=== PATIENT | female | born 1995 | race Caucasian/White ===

== ENCOUNTER 2017-07-09 14:58 | Emergency (ER) | payer OTHER, MEDICAID, SELFPAY | END 2017-07-09 17:08 | disposition home or self-care (01) | PROVIDERS: Emergency Provider Nurse Practitioner Family; Visit Provider Nurse Practitioner Family | DX: J32.9 Chronic sinusitis, unspecified (principal); B97.89 Other viral agents as the cause of diseases classified elsewhere; F17.210 Nicotine dependence, cigarettes, uncomplicated; R51 Headache; Z88.8 Allergy status to other drugs, medicaments and biological substances | CPT/HCPCS: 96372; 99201 ==

== ENCOUNTER 2017-09-01 15:32 | Emergency (ER) | payer OTHER, MEDICAID, SELFPAY ==
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
[2017-09-01 15:58] VITALS: BP 131/79; PULSE 71; RESP 18; TEMP 36.8; O2SAT 99; BMI 24.9
--- NOTE | 2017-09-01 15:58 | PC.ADMIT ---
[email or web address] Admission Note: The patient,Keyla De La Cruz,22 y/o, was given written information regarding hospital policies, unit procedures and contact persons. Patient's smoking status: .
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
[2017-09-01 16:52] LABS: Microscopic, Urine URINE MICROSCOPIC (MICROSCOPIC)
[2017-09-01 16:57] LABS: Appearance,Urine CLOUDY (Clear); Bilirubin,Urine Negative (Negative); Blood, Urine Negative (Negative); Color,Urine YELLOW (Yellow); Glucose,Urine (UA) Negative (Negative); Ketones,Urine Negative (Negative); Leukocyte Esterase,Urine Negative (Negative); Nitrate,Urine Negative (Negative); Protein,Urine Negative (Negative); Specific Gravity, Urine 1.015 (1.005-1.030); Urobilinogen,Urine 0.2 EU/dl (0.2)
[2017-09-01 16:58] LABS: Urine Pregnancy, HCG Qual. Negative (Negative)
[2017-09-01 17:16] LABS: WBC,Urine Occasional #/hpf (0-3)
[2017-09-01 17:17] LABS: Bacteria,Urine 2+ /lpf
[2017-09-01 17:17] LABS: Basophils # 0.1 K/mm3 (0-0.2); Basophils % 0.9 % (0.1-2.0); Eosinophils # 0.4 K/mm3 (0.0-0.4); Hematocrit 38.4 % (37.0-47.0); Hemoglobin 12.3 g/dL (12.2-16.2); Lymphocytes # 2.2 K/mm3 (0.7-4.5); Lymphocytes % 31.8 K/mm3 (10-50); Mean Corpuscular HGB Conc 32.1 g/dL (31.8-35.4); Mean Corpuscular Hemoglobin 26.1 pg (27.0-31.2); Mean Corpuscular Volume 81.3 fl (81-99); Mean Platelet Volume 8.9 fl (7.4-10.4); Monocytes # 0.4 K/mm3 (0.1-1.0); Neutrophils # 3.8 K/mm3 (1.8-7.8); Neutrophils % 55.2 % (37.0-80.0); Platelet Count 299 K/mm3 (142-424); Red Blood Count 4.72 M/mm3 (4.20-5.40); Red Cell Distribution Width 13.9 % (11.5-17.5); White Blood Count 6.9 K/mm3 (4.8-10.8)
[2017-09-01 17:36] LABS: Alanine Aminotransferase 28 U/L (12-78); Albumin Level 3.7 gm/dL (3.4-5.0); Albumin/Globulin Ratio 0.9 (1.1-1.8); Alkaline Phosphatase 88 U/L (46-116); Anion Gap 9.1 mEq/L (5-15); Aspartate Amino Transferase 16 U/L (15-37); Bilirubin,Total 0.6 mg/dL (0.2-1.0); Blood Urea Nitrogen 10 mg/dL (7-18); Calcium 8.8 mg/dL (8.5-10.1); Carbon Dioxide 27 mmol/L (21.0-32.0); Chloride 105 mmol/L (98-107); Creatinine Clearance Estimated 167 mL/min (0-300); Creatinine,Serum 0.54 mg/dL (0.55-1.02); Estimated Glomerular Filt Rate 139 ml/min (>60); GFR (African American) 168 ML/MIN (>60); Globulin 3.9 gm/dl (1.3-3.2); Glucose 82 mg/dL (74-106); Potassium 4.1 mmoL/L (3.5-5.1); Sodium 137 mmol/L (136-145); Total Protein,Serum 7.6 gm/dL (6.4-8.2)
[2017-09-01 18:51] VITALS: BP 120/83; PULSE 83; RESP 18; TEMP 36.9; O2SAT 98
== END 2017-09-01 18:51 | disposition home or self-care (01) ==
PROVIDERS: Emergency Provider General Practice
DX: S00.03XA Contusion of scalp, initial encounter (principal); Y04.0XXA Assault by unarmed brawl or fight, initial encounter; Y92.89 Other specified places as the place of occurrence of the external cause; S70.02XA Contusion of left hip, initial encounter; S30.1XXA Contusion of abdominal wall, initial encounter; F17.210 Nicotine dependence, cigarettes, uncomplicated
CPT/HCPCS: 70450; 72100; 73502; 80053; 81001; 81025; 85025; 87086; 99282

== ENCOUNTER 2017-09-27 00:21 | Emergency (ER) | payer OTHER, SELFPAY ==
[2017-09-27 00:52] VITALS: BP 129/69; PULSE 64; RESP 20; TEMP 37.4; O2SAT 98; BMI 24.7
[2017-09-27 01:03] LABS: Microscopic, Urine URINE MICROSCOPIC (MICROSCOPIC)
[2017-09-27 01:07] LABS: Urine Pregnancy, HCG Qual. Positive (Negative)
[2017-09-27 01:08] LABS: Appearance,Urine CLOUDY (Clear); Bilirubin,Urine Negative (Negative); Blood, Urine TRACE-I (Negative); Color,Urine YELLOW (Yellow); Glucose,Urine (UA) Negative (Negative); Ketones,Urine Negative (Negative); Leukocyte Esterase,Urine Negative (Negative); Nitrate,Urine Negative (Negative); Protein,Urine Negative (Negative); Urobilinogen,Urine 0.2 EU/dl (0.2)
[2017-09-27 01:11] LABS: Amorphous Sediment,Urine 4+ /lpf
[2017-09-27 01:40] LABS: Basophils # 0.1 K/mm3 (0-0.2); Basophils % 0.8 % (0.1-2.0); Eosinophils # 0.5 K/mm3 (0.0-0.4); Eosinophils % 4.9 % (0.1-12.0); Hematocrit 38.3 % (37.0-47.0); Hemoglobin 12.1 g/dL (12.2-16.2); Lymphocytes # 2.9 K/mm3 (0.7-4.5); Lymphocytes % 30.1 K/mm3 (10-50); Mean Corpuscular HGB Conc 31.5 g/dL (31.8-35.4); Mean Corpuscular Hemoglobin 26.5 pg (27.0-31.2); Mean Corpuscular Volume 83.9 fl (81-99); Mean Platelet Volume 8.1 fl (7.4-10.4); Monocytes # 0.5 K/mm3 (0.1-1.0); Monocytes % 4.8 % (1.7-9.3); Neutrophils # 5.8 K/mm3 (1.8-7.8); Neutrophils % 59.4 % (37.0-80.0); Platelet Count 304 K/mm3 (142-424); Red Blood Count 4.57 M/mm3 (4.20-5.40); Red Cell Distribution Width 15.3 % (11.5-17.5); White Blood Count 9.8 K/mm3 (4.8-10.8)
--- NOTE | 2017-09-27 01:54 | HMH.EDGENADL ---
ED Disposition Clinical Impression: Blighted ovum Disposition: Home, Self-Care Condition on Discharge: Good Additional Instructions: Call Dr. Chang Friday to arrange follow-up to be seen this week for recheck. Return if severe bleeding or severe pain. Referrals: Asiya Reyes MD [Primary Care Provider] - - Critical Care Critical Care Time: No Attestation: On 09/27/17, the high probability of a clinically significant, sudden or life threatening deterioration of the following system(s) required my full and direct attention, intervention and personal management. The time I documented below is in addition to time spent performing reported procedures but includes the following listed in this critical care notation. Medical Decision Making - Issac Inquiry Pt receiving controlled substance: No Vital Signs: 09/27/17 00:52 Temperature 99.3 F Temperature Source Oral Pulse Rate [Right Radial] 64 Respiratory Rate 20 Blood Pressure [Right Arm] 129/69 Blood Pressure Mean [Right Arm] 89 Blood Pressure Position [Right Arm] Sitting 02 Sat by Pulse Oximetry 98 - Lab Data Lab Results 09/27/17 01:00: Urine Color Yellow, Urine Appearance Cloudy, Urine pH 7.0, Ur Specific [place] 1.020, Urine Protein Negative, Urine Glucose (UA) Negative, Urine Ketones Negative, Urine Blood Trace-i, Urine Nitrate Negative, Urine Bilirubin Negative, Urine Urobilinogen 0.2, Ur Leukocyte Esterase Negative, Urine RBC 3-5, Amorphous Sediment 4+ 09/27/17 01:00: Urine HCG, Qual Positive 09/27/17 01:10: WBC 9.8, RBC 4.57, Hgb 12.1 L, Hct 38.3, MCV 83.9, MCH 26.5 L, MCHC 31.5 L, RDW 15.3, Plt Count 304, MPV 8.1, Neut % (Auto) 59.4, Lymph % (Auto) 30.1, [place] % (Auto) 4.8, Eos % (Auto) 4.9, Baso % (Auto) 0.8, Neut # (Auto) 5.8, Lymph # (Auto) 2.9, [place] # (Auto) 0.5, Eos # (Auto) 0.5 H, Baso # (Auto) 0.1 09/27/17 01:10: Sodium 141, Potassium 3.4 L, Chloride 105, Carbon Dioxide 27, Anion Gap 12.4, BUN 11, Creatinine 0.70, Estimated Creat Clear 124, Estimated GFR 103, Est GFR ( Amer) 124, Glucose 77, Calcium 8.8, Total Bilirubin 0.3, AST 19, ALT 25, Alkaline Phosphatase 78, Total Protein 7.5, Albumin 3.7, Globulin 3.8 H, Albumin/Globulin Ratio 1.0 L, HCG, Quant [id number] H 09/27/17 01:10: Blood Type AB Positive Result diagrams: 09/27/17 01:10 09/27/17 01:10 Orders (Tests/Meds): ORDERS Category Date Time Status US OB transvaginal Stat Ultrasound 09/27/17 02:02 Taken - US Data US Images: Pelvis Findings Narrative: As per [facility] procedure, ultrasound report received from office machine technician: Gestational sac seen, no pole. Presumed blighted ovum. General Adult HPI - General Chief complaint: Vaginal Bleeding Stated complaint: 6 wks bleeding Time Seen by Provider: 09/27/17 01:58 Mode of Arrival: Ambulatory Limitations: No Limitations Description of Symptoms (Recalled from ER Triage Doc. by RN): 6 weeks , started having vaginal bleeding tonight. pt states she had some bleeding when wiping after voiding. lower abd cramping that radiates into her back. denies clots - History of Present Illness HPI narrative: The patient states she is approximately 6 weeks gestation , 3, para 2, and has vaginal bleeding starting today. She says she sees blood whenever she wipes, about like the beginning of menses. She has some suprapubic and low back pain. She has not passed any tissue. She has seen her precision inspector, Dr. Chang, about this . She says they could not see anything on the monitor . - Related Data Home Medications Medication Instructions Recorded Confirmed valacyclovir 1 gram tablet 500 mg PO QDAY 07/10/17 09/27/17 1 tab PO QHS 09/18/17 09/27/17 vitamin,calcium,abuzgykc-ztdr-tabei acid tablet Allergies Allergy/AdvReac Type Severity Reaction Status Date / Time hydrocodone [From LORTAB] Allergy Intermediate Verified 09/18/17 13:27 metoclopramide [From REGLAN] A
--- NOTE | 2017-09-27 02:02 | US_ITS ---
US OB transvaginal COMPARISON: None HISTORY: Known early with vaginal bleeding TECHNIQUE: Transvaginal ultrasound FINDINGS: There is apparent gestational sac noted within the endometrial canal measuring 0.8 x 0.7 x 0.6 cm. There are no echoes and is no heart flicker identified both ovaries appear grossly normal. There is no cul-de-sac fluid. IMPRESSION: Possible very early gestational sac too early to assess viability versus blighted ovum and suggest clinical correlation and follow-up study in 7-10 days depending on subsequent clinical stability or progression of symptoms
[2017-09-27 02:16] LABS: Alanine Aminotransferase 25 U/L (12-78); Albumin Level 3.7 gm/dL (3.4-5.0); Alkaline Phosphatase 78 U/L (46-116); Anion Gap 12.4 mEq/L (5-15); Aspartate Amino Transferase 19 U/L (15-37); Bilirubin,Total 0.3 mg/dL (0.2-1.0); Blood Urea Nitrogen 11 mg/dL (7-18); Calcium 8.8 mg/dL (8.5-10.1); Carbon Dioxide 27 mmol/L (21.0-32.0); Chloride 105 mmol/L (98-107); Creatinine Clearance Estimated 124 mL/min (0-300); Estimated Glomerular Filt Rate 103 ml/min (>60); GFR (African American) 124 ML/MIN (>60); Globulin 3.8 gm/dl (1.3-3.2); Glucose 77 mg/dL (74-106); HCG,Quantitative 11494 mIU/mL; Potassium 3.4 mmoL/L (3.5-5.1); Sodium 141 mmol/L (136-145); Total Protein,Serum 7.5 gm/dL (6.4-8.2)
[2017-09-27 03:30] VITALS: BP 121/70; PULSE 85; RESP 20; TEMP 36.6; O2SAT 99
== END 2017-09-27 03:31 | disposition home or self-care (01) ==
PROVIDERS: Emergency Provider Emergency Medicine; PCP Family Medicine
DX: O02.0 Blighted ovum and nonhydatidiform mole (principal); F41.8 Other specified anxiety disorders
CPT/HCPCS: 76830; 80053; 81001; 81025; 84702; 85025; 86900; 86901; 99283

== ENCOUNTER → 2017-10-02 16:36 | Outpatient (CLI) | payer OTHER, MEDICAID, SELFPAY ==
[2017-10-02 16:47] LABS: Basophils # 0.1 K/mm3 (0-0.2); Basophils % 0.5 % (0.1-2.0); Eosinophils # 0.5 K/mm3 (0.0-0.4); Eosinophils % 4.7 % (0.1-12.0); Hematocrit 39.5 % (37.0-47.0); Hemoglobin 12.5 g/dL (12.2-16.2); Lymphocytes # 2.8 K/mm3 (0.7-4.5); Lymphocytes % 24.3 K/mm3 (10-50); Mean Corpuscular HGB Conc 31.6 g/dL (31.8-35.4); Mean Corpuscular Hemoglobin 26.2 pg (27.0-31.2); Mean Corpuscular Volume 82.8 fl (81-99); Mean Platelet Volume 8.7 fl (7.4-10.4); Monocytes # 0.7 K/mm3 (0.1-1.0); Monocytes % 5.9 % (1.7-9.3); Neutrophils # 7.3 K/mm3 (1.8-7.8); Neutrophils % 64.5 % (37.0-80.0); Platelet Count 288 K/mm3 (142-424); Red Blood Count 4.77 M/mm3 (4.20-5.40); Red Cell Distribution Width 15.5 % (11.5-17.5); White Blood Count 11.3 K/mm3 (4.8-10.8)
[2017-10-02 18:34] LABS: Alanine Aminotransferase 34 U/L (12-78); Albumin Level 3.9 gm/dL (3.4-5.0); Albumin/Globulin Ratio 1.1 (1.1-1.8); Alkaline Phosphatase 74 U/L (46-116); Anion Gap 13.2 mEq/L (5-15); Aspartate Amino Transferase 17 U/L (15-37); Bilirubin,Total 0.3 mg/dL (0.2-1.0); Blood Urea Nitrogen 9 mg/dL (7-18); Calcium 8.9 mg/dL (8.5-10.1); Carbon Dioxide 27 mmol/L (21.0-32.0); Chloride 103 mmol/L (98-107); Creatinine,Serum 0.53 mg/dL (0.55-1.02); Estimated Glomerular Filt Rate 142 ml/min (>60); GFR (African American) 171 ML/MIN (>60); Globulin 3.6 gm/dl (1.3-3.2); Glucose 76 mg/dL (74-106); Potassium 4.2 mmoL/L (3.5-5.1); Sodium 139 mmol/L (136-145); Total Protein,Serum 7.5 gm/dL (6.4-8.2)
== END ==
PROVIDERS: Visit Provider Obstetrics & Gynecology
DX: Z01.818 Encounter for other preprocedural examination (principal); O03.9 Complete or unspecified spontaneous abortion without complication
CPT/HCPCS: 36415; 80053; 85025

== ENCOUNTER 2017-10-03 09:13 | Day surgery (SDC) | payer OTHER, MEDICAID, SELFPAY ==
[2017-10-03] VITALS (10 sets, daily range): BP systolic 95–116; BP diastolic 52–76; PULSE 63–79; RESP 16–20; TEMP 36.3–37.1; O2SAT 99–100; BMI 25.8
--- NOTE | 2017-10-03 09:50 | HMH.ANESCL ---
[facility] Anesthesia Checklist - Patient Identification Patient Identification: Arm Band - Structural Data Admitted From: Home Consent for Planned Operative Procedure(s) Verified: Yes Verified Documents: Surgical Consent, History and Physical - NPO Status Verified Time NPO: 00:00 - Additional verifications Anesthesia Reactions: No - Airway Assessment C-Spine Mobility Assessed: Yes TMJ Mobility Assessed: Yes Dentition: Good Dentition - Neurological Assessment Level of Consciousness: Awake Hx Seizures: No Numbness or tingling in extremities: No - Anesthesia Plan Anesthesia Risk discussed: Yes Anesthesia Plan: Verified ASA Class: II Anesthesia Type: General [facility] Anesthesia HX I have reviewed the patient's past medical history: Yes Medical History: Reports:: Anxiety, Asthma, Depression Denies:: Cancer, Diabetes Mellitus Type 1, Diabetes Mellitus Type 2, MRSA, Seizures Other Medical History: Reports: Other. Denies: Blood Transfusion Reaction Comment: Positive for smoking, HSV Laterality Cases: Bilateral: Tonsillectomy Other Surgeries: Yes: , Diagnostic Lap Amputation: No Fractures: No *Family Hx:: Coronary Artery Disease, Heart Attack, Hyperlipidemia, Hypertension
--- NOTE | 2017-10-03 09:53 | P.PN_ITS ---
[facility] Anesthesia Checklist - Patient Identification Patient Identification: Arm Band - Structural Data Admitted From: Home Consent for Planned Operative Procedure(s) Verified: Yes Verified Documents: Surgical Consent, History and Physical - NPO Status Verified Time NPO: 00:00 - Additional verifications Anesthesia Reactions: No - Airway Assessment C-Spine Mobility Assessed: Yes TMJ Mobility Assessed: Yes Dentition: Good Dentition - Neurological Assessment Level of Consciousness: Awake Hx Seizures: No Numbness or tingling in extremities: No - Anesthesia Plan Anesthesia Risk discussed: Yes Anesthesia Plan: Verified ASA Class: II Anesthesia Type: General [facility] Anesthesia HX I have reviewed the patient's past medical history: Yes Medical History: Reports:: Anxiety, Asthma, Depression Denies:: Cancer, Diabetes Mellitus Type 1, Diabetes Mellitus Type 2, MRSA, Seizures Other Medical History: Reports: Other. Denies: Blood Transfusion Reaction Comment: Positive for smoking, HSV Laterality Cases: Bilateral: Tonsillectomy Other Surgeries: Yes: , Diagnostic Lap Amputation: No Fractures: No *Family Hx:: Coronary Artery Disease, Heart Attack, Hyperlipidemia, Hypertension
--- NOTE | 2017-10-03 10:47 | HMH.OPNOTE ---
Date of procedure: 10/03/17 Pre-op Diagnosis:: Missed spontaneous Post-op Diagnosis:: Missed spontaneous Procedure performed:: Dilatation and suction curettage Surgeon:: Aditya Chang MD NUMERICAL CONTROL OPERATOR:: Manjit Segovia Anesthesia: GETA Estimated blood loss (mL): 100 Operative findings:: Missed spontaneous Operative note:: After the patient was prepped and draped in usual fashion and general anesthesia was admitted, examination under anesthesia revealed an 8 week size boggy anteverted uterus, with no adnexal masses. A weighted speculum was placed within the posterior fourchette of the vagina, and the anterior lip of the cervix was grasped with a single-tooth tenaculum. The cervix was open approximately 2 cm, and easily admitted a #14 Hegar dilator. The uterus was sounded in an anteverted direction to 9 cm, and easily dilated to #20 Hegar dilators. A sharp curette was introduced into the endometrial cavity, with the retrieval of moderate amount of products of conception. This was then followed by suction with a #7 curved suction tip, and again by sharp curettage and suction, until it was felt that the cavity was clean. Intravenous Pitocin was then begun, and the uterus was involuting well at the close of the procedure. The sponge and needle counts correct. The estimated blood loss was 100 cc. The patient's Rh factor is positive, and therefore she is not a candidate for RhoGam. The patient tolerated the procedure well, was taken to PACU in excellent condition. She will be discharged today, if her vital signs are stable. Condition: stable Disposition: same day Specimens:: Products of conception Complications:: None
--- NOTE | 2017-10-03 10:57 | HMH.ANESI ---
[facility] Anesthesia Record Part I Intake, IV Amount: 400 Estimated blood loss (mL): 10 Urine output (mL): 150 Blood Products used (#): none Blood Pressure: 98/59 SaO2: 100 Pulse Rate: 79 Respiratory Rate: 18 Temperature: 97.3 F Patient is:: Drowsy, Stable Stable to PACU at:: 10:56
--- NOTE | 2017-10-03 10:58 | P.PN_ITS ---
[facility] Anesthesia Record Part II Discharge Time: 11:26 Destination: Surgical Day Care (OP Surgery) PACU nurse assessment reviewed?: Yes Patient Condition:: Good Anesthesia Complications:: None
[2017-10-03 12:02] LABS: Hematocrit 37.1 % (37.0-47.0); Hemoglobin 11.7 g/dL (12.2-16.2)
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
== END 2017-10-03 12:15 | disposition home or self-care (01) ==
PROVIDERS: PCP Family Medicine; Visit Provider Obstetrics & Gynecology
PROC: (CPT 59820; principal; 2017-10-03 12:30)
DX: O02.1 Missed abortion (principal)
CPT/HCPCS: 59820; 36415; 85014; 85018; 96372; 96374

== ENCOUNTER → 2017-12-09 08:08 | Outpatient (CLI) | payer OTHER, MEDICAID, SELFPAY ==
--- NOTE | 2017-12-09 08:10 | US_ITS ---
US abdomen limited History:Right upper quadrant pain with nausea vomiting and diarrhea Ordering Physician:Kelin Sweet Patient Age: 22 years Comparison:None Findings: Pancreas:Unremarkable. No obvious mass or abnormal fluid collection. No ductal dilatation Liver:No focal liver lesions demonstrated. Homogeneous echogenicity. No intrahepatic biliary ductal dilatation evident Right Kidney:Unremarkable. Normal size and echogenicity. No hydronephrosis Gallbladder:No gallstones, gallbladder wall thickening, pericholecystic fluid, or biliary dilatation. Impression:Negative gallbladder/right upper quadrant ultrasound
== END ==
PROVIDERS: PCP Family Medicine; Visit Provider Nurse Practitioner
DX: R10.11 Right upper quadrant pain (principal)
CPT/HCPCS: 76705

== ENCOUNTER → 2018-05-05 15:12 | Outpatient (CLI) | payer OTHER, MEDICAID, SELFPAY ==
[2018-05-08 06:42] LABS: HIV Screen 4th Generation wRfx Non Reactive (Non Reactive); Hepatitis C Antibody 0.1 s/co ratio (0.0-0.9); Rapid Plasma Reagin Ab Titer Non Reactive (NonRea<1:1)
== END ==
PROVIDERS: PCP Family Medicine; Visit Provider Obstetrics & Gynecology
DX: Z11.3 Encounter for screening for infections with a predominantly sexual mode of transmission (principal)
CPT/HCPCS: 36415; 86592; 86703; 87380; G0432

== ENCOUNTER 2018-07-16 15:30 | Outpatient (RCR) | payer BC, OTHER, MEDICAID, SELFPAY ==
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
--- NOTE | 2018-07-01 10:27 | HMH.RHREAS ---
Rehab Reassessment Rehab OP Re-assessment Start: 07/01/18 10:20 Freq: Status: Active Protocol: Document 07/01/18 10:23 BRANT (Rec: 07/01/18 10:27 BRANT [id number]) Electronically Signed By Tom Woodall, PT 07/01/18 10:23 Rehab Re-assessment Subjective Subjective Pt reports she continues to have intermittent sharp pain on dorsal foot just proximal to 2nd and 3rd toe. Objective Objective Notes AROM right ankle: DF= 0-5, PF= 0-41, INV= 0-21, EVER= 0-7 MMT right ankle: Grossly 3/5 throughout except DF 4/5. Assessment Progress Assessment Progressing as Expected Assessment Notes Pt is tolerating ambulation better, but continues to limp when not using crutches. ROM and strength much improved. Patient goals met ST,2,3,4,5,6,7 Goals Not Met LT,2,3,4,5,6,7 Revised Goals none Plan Plan Continue per initial POC. Frequency of Therapy 2x/wk Duration of therapy 8 wks Time and Billing Re-Eval Time 15 Re-Eval Billing Units 1 PHYSICIAN CERTIFICATION: I certify the specified therapy services for Keyla De La Cruz are required, authorized, and reviewed every 30 days.
== END 2018-07-16 15:35 | disposition home or self-care (01) ==
LOC: PT 15:30
PROVIDERS: Visit Provider Nurse Practitioner
DX: S92.901G Unspecified fracture of right foot, subsequent encounter for fracture with delayed healing (principal)
CPT/HCPCS: 97010; 97014; 97016; 97035; 97110; 97116; 97140; 97163; 97164; G0283

== ENCOUNTER → 2018-08-25 15:22 | Outpatient (CLI) | payer BC, SELFPAY ==
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
== END ==
PROVIDERS: PCP Family Medicine; Visit Provider Obstetrics & Gynecology
DX: R10.2 Pelvic and perineal pain (principal)
CPT/HCPCS: 76830

== ENCOUNTER → 2018-09-01 10:08 | Outpatient (CLI) | payer BC, SELFPAY ==
[2018-09-01 10:10] LABS: Microscopic, Urine URINE MICROSCOPIC (MICROSCOPIC)
[2018-09-01 10:56] LABS: Basophils # 0.1 K/mm3 (0-0.2); Basophils % 0.8 % (0.1-2.0); Eosinophils # 0.4 K/mm3 (0.0-0.4); Eosinophils % 5.5 % (0.1-12.0); Hematocrit 43.8 % (37.0-47.0); Hemoglobin 13.9 g/dL (12.2-16.2); Lymphocytes # 2.1 K/mm3 (0.7-4.5); Mean Corpuscular HGB Conc 31.8 g/dL (31.8-35.4); Mean Platelet Volume 8.5 fl (7.4-10.4); Monocytes # 0.3 K/mm3 (0.1-1.0); Monocytes % 4.6 % (1.7-9.3); Neutrophils # 3.6 K/mm3 (1.8-7.8); Platelet Count 271 K/mm3 (142-424); Red Blood Count 4.81 M/mm3 (4.20-5.40); Red Cell Distribution Width 13.5 % (11.5-17.5); White Blood Count 6.4 K/mm3 (4.8-10.8)
[2018-09-01 11:33] LABS: Appearance,Urine CLEAR (Clear); Bilirubin,Urine Negative (Negative); Blood, Urine Negative (Negative); Color,Urine YELLOW (Yellow); Glucose,Urine (UA) Negative (Negative); Ketones,Urine Negative (Negative); Leukocyte Esterase,Urine Negative (Negative); Nitrate,Urine Negative (Negative); PH,Urine 7.5 (5.0-8.5); Protein,Urine Negative (Negative); Specific Gravity, Urine 1.015 (1.005-1.030); Urobilinogen,Urine 0.2 EU/dl (0.2)
[2018-09-01 11:36] LABS: Urine Pregnancy, HCG Qual. Negative (Negative)
[2018-09-01 11:49] LABS: Alanine Aminotransferase 20 U/L (12-78); Albumin Level 3.9 gm/dL (3.4-5.0); Albumin/Globulin Ratio 1.1 (1.1-1.8); Alkaline Phosphatase 85 U/L (46-116); Anion Gap 11.8 mEq/L (5-15); Aspartate Amino Transferase 14 U/L (15-37); Bilirubin,Total 0.8 mg/dL (0.2-1.0); Blood Urea Nitrogen 12 mg/dL (7-18); Carbon Dioxide 28 mmol/L (21.0-32.0); Chloride 103 mmol/L (98-107); Creatinine,Serum 0.61 mg/dL (0.55-1.02); Estimated Glomerular Filt Rate 120 ml/min (>60); GFR (African American) 145 ML/MIN (>60); Globulin 3.4 gm/dl (1.3-3.2); Glucose 79 mg/dL (74-106); Potassium 4.8 mmoL/L (3.5-5.1); Sodium 138 mmol/L (136-145); Total Protein,Serum 7.3 gm/dL (6.4-8.2); WBC,Urine Occasional #/hpf (0-3)
== END ==
PROVIDERS: Visit Provider Obstetrics & Gynecology
DX: Z01.818 Encounter for other preprocedural examination (principal); R10.2 Pelvic and perineal pain
CPT/HCPCS: 36415; 80053; 81001; 81025; 85025

== ENCOUNTER → 2019-05-14 15:08 | Outpatient (CLI) | payer BC, MEDICAID, SELFPAY ==
--- NOTE | 2019-05-14 15:17 | XR_ITS ---
PROCEDURE: XR ANKLE WT BEARING RT MIN 3V CLINICAL INDICATION: pain Ankle pain COMPARISON: [id number] XR foot RT min 3V from 04/05/[address] foot RT wo con from 04/05/2018 ANKCMRT XR ankle RT min 3V from 04/05/2018 XR FOOT WT BEARING RT 3V from 05/14/2019 XR CALCANEUS RT MIN 2V from 05/14/2019 FINDINGS: No acute fracture or dislocation. The ankle joint is well preserved. There is some cortical regularity involving the medial aspect of the talocalcaneal junction possibly from previous surgery. There is some minimal hypertrophic changes of the posterior distal talus. The calcaneus has an unremarkable appearance. The subtalar joint is unremarkable. There is normal alignment of the foot. No acute finding evident. 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 It appears that there been an osteotomy of the posterior talar process with some bony hypertrophy at this area. There is good alignment of the talonavicular joint. IMPRESSION: The postsurgical changes with degenerative change, no acute finding Dictated by: Tyrone Stock MD 05/14/2019 16:21 Electronically signed by Tyrone Stock MD in [place] 05/14/2019 16:21
== END ==
PROVIDERS: PCP Family Medicine; Visit Provider Podiatrist
DX: S82.891A Other fracture of right lower leg, initial encounter for closed fracture (principal); S92.101A Unspecified fracture of right talus, initial encounter for closed fracture; S92.251A Displaced fracture of navicular [scaphoid] of right foot, initial encounter for closed fracture
CPT/HCPCS: 73610; 73630; 73650

== ENCOUNTER → 2019-05-31 09:31 | Outpatient (CLI) | payer BC, MEDICAID, SELFPAY ==
[2019-06-01 15:00] LABS: HIV Screen 4th Generation wRfx Non Reactive (Non Reactive); Rapid Plasma Reagin Ab Titer Non Reactive (NonRea<1:1)
[2019-06-02 10:22] LABS: Hepatitis C Antibody 0.1 s/co ratio (0.0-0.9)
== END ==
PROVIDERS: Visit Provider Obstetrics & Gynecology
DX: Z11.3 Encounter for screening for infections with a predominantly sexual mode of transmission (principal)
CPT/HCPCS: 36415; 86592; 86703; 87380; G0432

== ENCOUNTER 2019-10-29 10:47 | Emergency (ER) | payer MEDICAID, SELFPAY ==
[2019-10-29 11:12] VITALS: BP 124/71; PULSE 69; RESP 18; TEMP 36.8; O2SAT 100; BMI 26.7
--- NOTE | 2019-10-29 11:12 | HMH.EDUTC ---
[facility] Disposition Clinical Impression: Bronchitis Asthma exacerbation Qualifiers: Asthma severity: unspecified severity Asthma persistence: unspecified Qualified Code(s): J45.901 - Unspecified asthma with (acute) exacerbation Disposition: Home, Self-Care Condition on Discharge: Good Instructions: Preventing the Spread of Coronavirus Discharge Instructions Additional Instructions: Drink plenty of fluids. Take tylenol or ibuprofen for pain or fever. Take the medications as directed. Follow up with your regular doctor. GO TO THE ER FOR ANY WORSENING SYMPTOMS Prescriptions: Brompheniramine/Pseudoephed/Dm [Bromfed Dm Cough Syrup] 5 ml PO Q6HP PRN #240 syrup PRN Reason: Cough Transmission Status: Received by [facility] Azithromycin [Z-Randy 250mg Tab*] 250 mg PO UD DOSE PK #6 tab Transmission Status: Received by [facility] Referrals: Provider,Referral, [Primary Care Provider] - Forms: Work/School Release Time of Disposition: 12:29 Medical Decision Making - Medical Records Medical records reviewed: No: I reviewed the patient's medical records. - Issac Inquiry Pt receiving controlled substance: No Vital Signs: 10/29/19 11:12 10/29/19 12:36 Temperature 98.2 F 98.2 F Temperature Source Oral Oral Pulse Rate 69 Pulse Rate [Right Brachial] 69 Respiratory Rate 18 18 Blood Pressure 124/71 Blood Pressure [Right Arm] 124/71 Blood Pressure Mean [Right Arm] 88 Blood Pressure Source Automatic Cuff Blood Pressure Source [Right Arm] Automatic Cuff Blood Pressure Position Sitting Blood Pressure Position [Right Arm] Sitting 02 Sat by Pulse Oximetry 100 Oxygen Delivery Method Room Air Room Air - Lab Data Lab Results 10/29/19 11:21: Influenza Type A Ag Negative, Influenza Type B Ag Negative 10/29/19 11:21: Strep Scn Rapid Clinic Negative Orders (Tests/Meds): ORDERS Category Date Time Status SARS-CoV-2, DEMETRICE Stat Lab 10/29/19 12:35 Received Strep Screen Confirmation Stat Micro 10/29/19 11:21 Received [facility] HPI - General Stated complaint: nausea x 3 days; headache; dizzy Time Seen by Provider: 10/29/19 11:12 - History of Present Illness Provider Complaint: She c/o 3 days of head ache, cough and fever. She also has had some shortness of breath. She has a history of asthma. 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 - Related Data Previous Rx's Medication Instructions Recorded Albuterol Sulfate [Albuterol HFA 1 - 2 puffs IH Q4-6H PRN #1 inh 06/21/19 Inhaler] Azithromycin [Z-Randy 250mg Tab*] 250 mg PO UD DOSE PK #6 tab 10/29/19 Brompheniramine/Pseudoephed/Dm 5 ml PO Q6HP PRN #240 syrup 10/29/19 [Bromfed Dm Cough Syrup] Allergies Allergy/AdvReac Type Severity Reaction Status Date / Time metoclopramide [From REGLAN] Allergy Mild Verified 06/17/19 11:16 montelukast [From SINGULAIR] Allergy Mild Verified 06/17/19 11:16 [facility] History - Hepatitis A Screen Attestation statement:: This patient has been screened for Hepatitis A risk factors. I have reviewed the patient's past medical history: Yes Medical History: Reports:: Anxiety, Asthma, Depression Denies:: Cancer, Diabetes Mellitus Type 1, Diabetes Mellitus Type 2, Internal Pacemaker, MRSA, Seizures Other Medical History: Reports: Other. Denies: Blood Transfusion Reaction Comment: Smoker. HSV. ANXIETY. ASTHMA. ENDOMETRIOSIS Laterality Cases: Right: Other, Bilateral: Tonsillectomy Other Surgeries: Yes: Cholecystectomy, , Diagnostic Lap (x5), Other. No: Pacemaker Amputation: No Fractures: No Comment: Breast augmentation. laporoscopy x 5 - Social History Smoking Status: Current every day smoker Tobacco Type: cigarettes # Packs/Day (cigarettes): 1 #Yrs smoked (if former smoker): 5 Alcohol Intake: never Alcohol Intake Frequency:: holidays/special occasions only Subst
--- NOTE | 2019-10-29 11:28 | XR_ITS ---
PROCEDURE: XR CHEST 2V CLINICAL HISTORY: cough, short of breath COMPARISON: CXR2V XR chest 2V from 12/27/2017 TRANVAG US transvaginal from 08/25/2018 CT ABDOMEN PELVIS WO CON from 03/09/2019 FINDINGS: The cardiomediastinal silhouette and pulmonary vascularity are within normal limits. The lungs are clear without infiltrates, suspicious nodules, or pleural effusions. No acute bony abnormalities. IMPRESSION: No acute findings. Dictated by: Tyrone Stock MD 10/29/2019 14:36 Electronically signed by Tyrone Stock MD in [place] 10/29/2019 14:36
[2019-10-29 11:30] LABS: UTC Strep Screen (Rapid) Negative (Negative)
[2019-10-29 11:31] LABS: UTC Influenza A Antigen Negative (Negative); UTC Influenza B Antigen Negative (Negative)
[2019-10-29 12:36] VITALS: BP 124/71; PULSE 69; RESP 18; TEMP 36.8; O2SAT 100
[2019-10-30 08:23] LABS: Covid-19 Nasal PCR Sendout Lex NOT DETECTED
--- NOTE | 2019-10-30 11:06 | PC.NURSE ---
1105 PT NOTIFIED OF NEGATIVE COVID-19 TEST RESULT, NO PCP TO NOTIFY
== END 2019-10-29 12:40 | disposition home or self-care (01) ==
PROVIDERS: Emergency Provider Nurse Practitioner Family
DX: J20.9 Acute bronchitis, unspecified (principal); J45.901 Unspecified asthma with (acute) exacerbation; F41.8 Other specified anxiety disorders; Z90.49 Acquired absence of other specified parts of digestive tract; F17.210 Nicotine dependence, cigarettes, uncomplicated
CPT/HCPCS: 71046; 87804; 87880; 99202; U0003

== ENCOUNTER → 2019-11-16 16:08 | Outpatient (CLI) | payer MEDICAID, SELFPAY ==
[2019-11-18 07:31] LABS: Hep A Ab, IgM Negative (Negative); Hepatitis B Core Antibody IgM Negative (Negative); Hepatitis B Surface Antigen Negative (Negative)
[2019-11-18 12:56] LABS: HIV Screen 4th Generation wRfx Non Reactive (Non Reactive); Hepatitis C Antibody 0.2 s/co ratio (0.0-0.9); Rapid Plasma Reagin Ab Titer Non Reactive (NonRea<1:1)
[2019-11-18 12:57] LABS: HSV 2 IgG, Type Spec 9.39 index (0.00-0.90)
[2019-11-19 11:20] LABS: Neisseria gonorrhoeae, NAA Negative (Negative)
== END ==
PROVIDERS: Visit Provider Nurse Practitioner Obstetrics & Gynecology
DX: Z72.51 High risk heterosexual behavior (principal)
CPT/HCPCS: 36415; 80074; 86592; 86695; 86703; 86790; 87491; 87591; G0432

== ENCOUNTER → 2020-03-17 15:57 | Outpatient (CLI) | payer MEDICAID, SELFPAY ==
[2020-03-19 09:20] LABS: Covid-19 Nasal PCR Sendout UK Not Detected
== END ==
PROVIDERS: Visit Provider Nurse Practitioner
DX: Z03.818 Encounter for observation for suspected exposure to other biological agents ruled out (principal)
CPT/HCPCS: U0003

== ENCOUNTER → 2020-05-15 16:48 | Outpatient (CLI) | payer OTHER, MEDICAID, SELFPAY ==
[2020-05-18 11:46] LABS: Neisseria gonorrhoeae, NAA Negative (Negative)
== END ==
PROVIDERS: Visit Provider Nurse Practitioner Obstetrics & Gynecology
DX: Z72.51 High risk heterosexual behavior (principal)
CPT/HCPCS: 87491; 87591

== ENCOUNTER → 2020-08-03 14:37 | Outpatient (CLI) | payer OTHER, SELFPAY ==
[2020-08-03 15:39] LABS: Basophils # 0.1 K/mm3 (0-0.2); Basophils % 0.8 % (0.1-2.0); Eosinophils # 0.5 K/mm3 (0.0-0.4); Eosinophils % 4.2 % (0.1-12.0); Hemoglobin 15.2 g/dL (12.2-16.2); Lymphocytes # 1.7 K/mm3 (0.7-4.5); Lymphocytes % 16.2 % (10-50); Mean Corpuscular HGB Conc 33.1 g/dL (31.8-35.4); Mean Corpuscular Volume 96.7 fl (81-99); Monocytes # 0.5 K/mm3 (0.1-1.0); Monocytes % 4.3 % (1.7-9.3); Neutrophils # 7.8 K/mm3 (1.8-7.8); Neutrophils % 74.4 % (37.0-80.0); Platelet Count 317 K/mm3 (142-424); Red Blood Count 4.76 M/mm3 (4.20-5.40); Red Cell Distribution Width 13.8 % (11.5-17.5); White Blood Count 10.5 K/mm3 (4.8-10.8)
[2020-08-03 15:52] LABS: Alanine Aminotransferase 17 U/L (12-78); Albumin Level 4.4 g/dl (3.5-5.0); Albumin/Globulin Ratio 1.6 (1.1-1.8); Alkaline Phosphatase 52 U/L (38-126); Anion Gap 13.9 mEq/L (5-15); Aspartate Amino Transferase 29 U/L (14-36); Bilirubin,Total 0.9 mg/dl (0.2-1.3); Blood Urea Nitrogen 12 mg/dl (7-17); Calcium 9.7 mg/dl (8.4-10.2); Carbon Dioxide 25 mmol/L (22.0-30.0); Chloride 104 mmol/L (98-107); Chol/HDL Ratio 2.9 (1-3.5); Cholesterol 168 mg/dl (140-200); Estimated Glomerular Filt Rate 100 ml/min (>60); GFR (African American) 121 ML/MIN (>60); Globulin 2.8 g/dL (1.3-3.2); Glucose 95 mg/dl (74-100); HDL Cholesterol 57 mg/dl (40-60); Potassium 4.9 mmoL/L (3.5-5.1); Sodium 138 mmol/L (136-145); Total Protein,Serum 7.2 g/dl (6.3-8.2); Triglycerides 82 mg/dl (30-150); VLDL Cholesterol 16 mg/dL (0-40)
[2020-08-03 16:04] LABS: Direct LDL Cholesterol 96.01 mg/dL (100-129)
[2020-08-03 16:10] LABS: Free T4 (Free Thyroxine) 1.12 ng/dl (0.78-2.19)
[2020-08-03 16:24] LABS: Thyroid Stimulating Hormone 1.35 uIU/mL (0.465-4.68)
[2020-08-03 16:49] LABS: 25-OH Vitamin D, Total 42.2 ng/mL (30-100)
== END ==
PROVIDERS: Visit Provider Physician Assistant
DX: R55 Syncope and collapse (principal); R42 Dizziness and giddiness; R11.2 Nausea with vomiting, unspecified; Z68.26 Body mass index [BMI] 26.0-26.9, adult
CPT/HCPCS: 80053; 80061; 82306; 84439; 84443; 85025

== ENCOUNTER → 2020-08-15 07:43 | Day surgery (SDC) | payer OTHER, SELFPAY ==
[2020-08-15 07:58] VITALS: BMI 26.5
--- NOTE | 2020-08-15 09:41 | CA_ITS ---
APPROVED REPORT Sap Basis: Portia Sheffield RVT Laterality: Bilateral Study Quality: Excellent Indications: syncope, Dizziness and Vertigo Doppler Spectral Velocity Analysis ECA (R) 79.10/11.80 cm/s ECA (L) 66.30/8.60 cm/s dICA (R) 90.90/47.00 cm/s dICA (L) 70.60/38.50 cm/s Brandon (R) 71.60/33.10 cm/s Brandon (L) 70.60/41.70 cm/s pICA (R) 56.70/22.50 cm/s pICA (L) 72.70/36.40 cm/s dCCA (R) 69.50/20.30 cm/s dCCA (L) 78.10/28.90 cm/s pCCA (R) 80.20/19.20 cm/s pCCA (L) 93.00/22.50 cm/s Vert (R) 43.80/13.90 cm/s Vert (L) 44.90/19.20 cm/s ICA/CCA 1.31 ICA/CCA 0.93 Findings Study suggests no evidence of stenosis of the bilateral internal cartoid arteries. Antegrade flow seen bilateral vertebral arteries. Conclusion Study suggests no evidence of stenosis of the bilateral internal cartoid arteries. Antegrade flow seen bilateral vertebral arteries. Electronically signed by : Tyrone Stock MD 08/15/2020 17:05:18
--- NOTE | 2020-08-15 09:41 | CA_ITS ---
APPROVED REPORT EXAM: Comprehensive 2D, Doppler, and color-flow Echocardiogram Hot Stick Man: Tracy Thayer, RT(R) Ht: 5 ft 3 in Wt: 149lbs BSA: 1.71 BP: 108/62 mmHg Indications: Syncope, dizziness, asthma, anxiety 2D Dimensions LVOT 1.78 cm (M/F) 1.5-2.5 M-Mode Dimensions RVDd 1.34 cm (0.9-2.6) LA Diam 2.48 cm (1.9-4.0) LVDd 4.27 cm (3.5-5.7) Ao Diam 2.51 cm (2.0-3.7) LVDs 3.25 cm (3.5-5.7) IVSd 0.76 cm (0.6-1.1) PWd 0.61 cm (0.6-1.1) EF (Teich) 48.00% FS 23.90% EDV (Teich) 81.70 mL ESV (Teich) 42.50 mL LV Diastology E Decel Time 203.00 (160-240 msec) E/A Ratio 2.0 MED E' 10.20 (< 7 cm/sec) E'/MED E' Ratio 6.94 (>14) LAT E' 15.40 (<10 cm/sec) E/LAT E' Ratio 4.60 (>14) Mitral Valve MV E Max Neil. 71.00 (40-130 cm/s) MV A Velocity 35.00 (40-130 cm/s) E/A Ratio 2.05 MV Decel. Time 203.00 (160-240 ms) MV PHT 60.00 ms Left Ventricle Technically difficult study because of the patient factors and poor acoustic windows. Left atrium is normal size, left ventricle is normal size, there is no concentric left ventricular hypertrophy, visually estimated ejection fraction 55% with no regional wall motion abnormality, diastolic parameters are within normal range. Right Ventricle Right atrium and right ventricle are normal size and contractility. Aortic Valve Aortic valve is grossly normal, there is no aortic stenosis or aortic insufficiency. Mitral Valve Mitral valve is grossly normal, there is trace mitral regurgitation. Tricuspid Valve Tricuspid valve is grossly normal, there is no significant tricuspid regurgitation to calculate right ventricular systolic pressure. Pulmonic Valve Pulmonic valve is poorly visualized. Great Vessels Aortic root is normal size. Pericardium No significant pericardial effusion noted. Conclusion 1. Technically difficult study because of the patient factors and poor acoustic windows. 2. Normal left ventricular size, preserved left ventricular systolic function, visually estimated ejection fraction 55% with no regional wall motion abnormality, diastolic parameters are within normal range. 3. Trace mitral and tricuspid regurgitation. 4. No significant pericardial effusion noted. Electronically signed by : Edwin Queen, 08/16/2020 06:08:47
--- NOTE | 2020-08-15 11:44 | P.PCN_ITS ---
Findings:: PROCEDURE: Upright Tilt Table Test REQUESTING PROVIDER: Cait Bourne PA-C INDICATION: Long history of syncope/near syncope MEDICATIONS: Tramadol, Valacyclovir PRE-TEST VS (supine position): BP 99/65, HR 66 and regular, O2 Sats 99% SUMMARY: Patient was attached to heart, blood pressure and O2 sat monitors, then tilted upright at 85 degrees for a total of 45 minutes. While upright she described feeling mildly lightheaded/dizzy a couple of times and then again when she was returned to the supine position at test end. She denied any symptoms to suggest pre-syncope or syncope. She also denied any of the prodromal symptoms (hot flash and nausea) that she usually experiences prior to her syncopal/near- syncopal episodes. Her blood pressure was normal, with minimal variations during the test. Lowest BP while upright was 100/73 and highest was 126/76. Heart rhythm was sinus throughout although she did develop some mild sinus tachycardia after being upright for approximately 30 minutes. Her highest heart rate was 115 bpm, occurring after 45 minutes in the upright position. Lowest HR while upright, was 84 bpm. Lowest HR overall was 58 bpm, occurring after she was returned to the supine position at the end of the test. O2 sats were consistently in the high 90s. COMPLICATIONS: None SUMMARY: Mostly unremarkable upright TTT. Patient did experience some mild sinus tachycardia (maximum HR of 115 bpm), but this was most likely due to the physical stress of prolonged standing rather than any abnormality.
== END ==
PROVIDERS: PCP Physician Assistant; Visit Provider Physician Assistant
DX: R42 Dizziness and giddiness (principal); R55 Syncope and collapse
CPT/HCPCS: 93306; 93660; 93880

== ENCOUNTER 2020-09-06 11:44 | Emergency (ER) | payer OTHER, SELFPAY ==
[2020-09-06 12:09] VITALS: BP 111/71; PULSE 81; RESP 16; TEMP 36.7; O2SAT 99; BMI 27.4
--- NOTE | 2020-09-06 12:38 | HMH.EDUTC ---
[place] Disposition Clinical Impression: Exposure to COVID-19 virus Disposition: Home, Self-Care Condition on Discharge: Good Instructions: DI for COVID-19 (Suspected or Confirmed ), Coronavirus Disease 2019, Preventing the Spread of Coronavirus Discharge Instructions Additional Instructions: *Monitor Temp, Over the counter Motrin or Tylenol as directed/as needed Tylenol every 4 hours and Motrin every 6 hours (as long as your family doctor has told you that you can take it) for fever or pain. and straight to ER if unable to lower temp less than 101.0 after medication given Follow up IMMEDIATELY for new or worsening symptoms or no Noticeable improvement over the next 48-72 hours. 911 for difficulty breathing or swallowing You were tested for today for COVID19 your test result should be back in the next 24-48 hours, you may call to the [facility] to see if your test results are back in the next 48 hours [phone] [facility] hours are 9am-9pm You was given a handout with instructions for Self Quarantine and Self isolation for while you wait on test results and what to do if they are positive If you are positive the Health Dept will be contacting you also Referrals: Cait Bourne PA [Primary Care Provider] - As needed Time of Disposition: 12:38 Medical Decision Making - Issac Inquiry Pt receiving controlled substance: No Issac was queried for this patient: No Vital Signs: 09/06/20 12:09 Temperature 98.1 F Temperature Source Oral Pulse Rate [Right] 81 Respiratory Rate 16 Blood Pressure [Right Arm] 111/71 Blood Pressure Mean [Right Arm] 84 Blood Pressure Source [Right Arm] Automatic Cuff Blood Pressure Position [Right Arm] Sitting 02 Sat by Pulse Oximetry 99 Oxygen Delivery Method Room Air Orders (Tests/Meds): ORDERS Category Date Time Status Covid-19 Nasal PCR ([facility]) Routine Lab 09/06/20 12:00 Received [place] HPI - General Stated complaint: covid test Time Seen by Provider: 09/06/20 12:38 Mode of Arrival: Ambulatory Source of Information: Patient Limitations: No Limitations HEENT Symptoms (Recalled from RN notes): Yes (NAIK) Resp Symptoms (Recalled from RN notes): No Skin Symptoms (Recalled from RN notes): No MS Symptoms (Recalled from RN notes): No Functional Status (Recalled from RN notes): NA - History of Present Illness Provider Complaint: Patient states that she was recently around someone that has since tested positive for COVID States that she is not having any symptoms but wanted to get tested - Related Data Home Medications Medication Instructions Recorded Confirmed Ketorolac Tromethamine [Toradol 10 mg PO Q6H 08/15/20 10mg tablet] Valacyclovir HCl [Valacyclovir] 500 mg PO DAILY 08/15/20 Allergies Allergy/AdvReac Type Severity Reaction Status Date / Time metoclopramide [From REGLAN] Allergy Mild Verified 09/06/20 11:54 montelukast [From SINGULAIR] Allergy Mild Verified 09/06/20 11:54 - Worker's Comp Is this a Worker's Comp case?: No [facility] History - Hepatitis A Screen Drug use history?: No High risk sexual behaviors?: No History of sexually transmitted infection?: No Currently employed?: No Childcare worker?: No Do you have indoor plumbing?: Yes Do you have electricity?: Yes Attestation statement:: This patient has been screened for Hepatitis A risk factors. I have reviewed the patient's past medical history: Yes Medical History: Reports:: Anxiety, Asthma, Depression Denies:: Cancer, Diabetes Mellitus Type 1, Diabetes Mellitus Type 2, Internal Pacemaker, MRSA, Seizures Other Medical History: Reports: Blood Transfusion Reaction, Other Comment: Smoker. HSV. ANXIETY. ASTHMA. ENDOMETRIOSIS Laterality Cases: Right: Other, Bilateral: Tonsillectomy Other Surgeries: Yes: Cholecystectomy, , Dilation and Curettage, Diagnostic Lap (x5), Other. No: Pacemaker Amputation: No Fractures: Yes (foot) Comment: Breast augmentation. laporoscopy x 5 - Social Hist
[2020-09-06 12:45] VITALS: BP 110/69; PULSE 86; RESP 16; TEMP 36.6
== END 2020-09-06 12:45 | disposition home or self-care (01) ==
PROVIDERS: Emergency Provider Nurse Practitioner; PCP Physician Assistant
DX: Z20.822 Contact with and (suspected) exposure to COVID-19 (principal); F41.8 Other specified anxiety disorders; J45.909 Unspecified asthma, uncomplicated; F17.210 Nicotine dependence, cigarettes, uncomplicated; Z79.899 Other long term (current) drug therapy
CPT/HCPCS: 99202; G0463; U0003

== ENCOUNTER 2020-11-02 12:21 | Emergency (ER) | payer OTHER, SELFPAY ==
[2020-11-02 12:21] VITALS: BP 127/79; PULSE 83; RESP 18; TEMP 37.2; O2SAT 98; BMI 28.1
--- NOTE | 2020-11-02 12:44 | HMH.EDUTC ---
[facility] [place] Disposition Clinical Impression: Headache Qualifiers: Headache type: unspecified Headache chronicity pattern: unspecified pattern Intractability: not intractable Qualified Code(s): R51.9 - Headache, unspecified Disposition: Home, Self-Care Condition on Discharge: Good Instructions: Diarrhea, DI for Headache Additional Instructions: Go home lay down and try to sleep off remainder of migraine headache ? Avoid fruit juices, as these do not replace minerals and can actually increase diarrhea. ? Children and adults can use sports drinks to replenish electrolytes. Younger children and infants should use products formulated for children, like oral rehydration solutions. ? Eat food in small amounts and let your stomach recover. ? Get lots of rest. You may feel tired or weak. ? No greasy or fried foods for the next 24-48 hours BRAT diet Bananas Rice Apples and [place] ? Make sure to drink plenty of liquids ? Return if needed ? Straight to ER if any life threatening symptoms ? Follow up with family doctor in the next 48-72 hours if no improvement or any worsening of symptoms Referrals: Cait Bourne PA [Primary Care Provider] - As needed Forms: Work/School Release Time of Disposition: 13:26 Medical Decision Making - Issac Inquiry Pt receiving controlled substance: No Issac was queried for this patient: No Vital Signs: 11/02/20 12:21 Temperature 98.9 F Temperature Source Oral Pulse Rate [Right] 83 Respiratory Rate 18 Blood Pressure [Right Arm] 127/79 Blood Pressure Mean [Right Arm] 95 02 Sat by Pulse Oximetry 98 Oxygen Delivery Method Room Air Orders (Tests/Meds): ED MEDICATIONS Discontinued Medications Generic Name Dose Route Start Last Admin Trade Name Bennett PRN Reason Stop Dose Admin Ketorolac Tromethamine 30 mg 11/02/20 12:58 11/02/20 13:11 Ketorolac 60mg/2ml Vial IM 11/02/20 12:59 30 mg ONCE ONE Administration Methylprednisolone Sodium Succinate 125 mg 11/02/20 12:58 11/02/20 13:09 Methylprednisolone Sod Succ 125mg Vial IM 11/02/20 12:59 125 mg ONCE ONE Administration Medical Decision Narrative: Patient denies chance of reports on her menstrual period at this time Patient states that headache is almost gone after medication [facility] HPI - General Stated complaint: hot flashes,headache Time Seen by Provider: 11/02/20 12:44 Mode of Arrival: Family Vehicle Source of Information: Patient Limitations: No Limitations Description of Symptoms (Recalled from Triage Doc. by RN): pt c/o migraine, hot flashes and diarrea since yesterday. PT DENIES HAVING FEVER. HEENT Symptoms (Recalled from RN notes): Yes Resp Symptoms (Recalled from RN notes): No Skin Symptoms (Recalled from RN notes): No MS Symptoms (Recalled from RN notes): No Functional Status (Recalled from RN notes): NA - History of Present Illness Provider Complaint: Patient states that she is suppose to be having allergy testing done in the next couple of weeks and she stopped taking her allergy medication States that she has been having some nasal congestion but started having migraine earlier and having some diarrhea States that she felt like she was having some hot flashes but she is on her menstral period at this time States that she took a couple 200mg Motrin this morning around 7 but hasnt helped much - Related Data Home Medications Medication Instructions Recorded Confirmed Ketorolac Tromethamine [Toradol 10 mg PO Q6H 08/15/20 10/25/20 10mg tablet] Valacyclovir HCl [Valacyclovir] 500 mg PO DAILY 08/15/20 10/25/20 Previous Rx's Medication Instructions Recorded albuterol sulfate 90 mcg/actuation 2 puff INHALATION Q6H 30 Days #6.7 10/09/20 aerosol inhaler g phentermine 37.5 mg tablet 37.5 mg PO DAILY #30 tab 10/09/20 Allergies Allergy/AdvReac Type Severity Reaction Status Date / Time metoclopramide [From REGLAN] Allergy Mild Verified 10/25/20 15:15 montelukast [From SINGULAIR] All
[2020-11-02 13:46] VITALS: BP 133/81; PULSE 78; RESP 16; TEMP 36.8; O2SAT 98
== END 2020-11-02 13:41 | disposition home or self-care (01) ==
PROVIDERS: Emergency Provider Nurse Practitioner; PCP Physician Assistant
DX: R51.9 Headache, unspecified (principal); F41.8 Other specified anxiety disorders; J45.909 Unspecified asthma, uncomplicated; F17.210 Nicotine dependence, cigarettes, uncomplicated
CPT/HCPCS: 99202; G0463

== ENCOUNTER 2020-11-12 17:54 | Emergency (ER) | payer OTHER, SELFPAY ==
[2020-11-12 18:05] VITALS: BP 114/78; PULSE 84; RESP 17; TEMP 36.9; O2SAT 100; BMI 27.4
--- NOTE | 2020-11-12 18:47 | HMH.EDUTC ---
[place] Disposition Clinical Impression: Headache Qualifiers: Headache type: unspecified Headache chronicity pattern: unspecified pattern Intractability: not intractable Qualified Code(s): R51.9 - Headache, unspecified Disposition: Home, Self-Care Condition on Discharge: Good Instructions: Migraine -- Adult, DI for Migraine Additional Instructions: Go home lay down and try to sleep off remainder of Migraine Headache If you need something else for pain do not take Motrin or Ibuprofen you can take Tylenol as you had a Torodol shot in the [facility] Return if needed Follow up with Family Doctor for further evaluation and treatment Keep appointments as scheduled Straight to ER if any life threatening symptoms Referrals: Cait Bourne PA [Primary Care Provider] - As needed Time of Disposition: 19:38 Medical Decision Making - Issac Inquiry Pt receiving controlled substance: No Issac was queried for this patient: No Vital Signs: 11/12/20 18:05 Temperature 98.4 F Temperature Source Oral Pulse Rate [Right Brachial] 84 Respiratory Rate 17 Blood Pressure [Right Arm] 114/78 Blood Pressure Mean [Right Arm] 90 Blood Pressure Source [Right Arm] Automatic Cuff Blood Pressure Position [Right Arm] Sitting 02 Sat by Pulse Oximetry 100 Oxygen Delivery Method Room Air - Lab Data Lab results reviewed: Yes: I reviewed the patient's lab results. Lab Results 11/12/20 18:48: Tst Clinic Negative Orders (Tests/Meds): ED MEDICATIONS Discontinued Medications Generic Name Dose Route Start Last Admin Trade Name Bennett PRN Reason Stop Dose Admin Ketorolac Tromethamine 60 mg 11/12/20 19:07 11/12/20 19:24 Ketorolac 60mg/2ml Vial IM 11/12/20 19:08 60 mg ONCE ONE Administration Promethazine HCl 12.5 mg 11/12/20 19:07 11/12/20 19:24 Promethazine Hcl 25mg/Ml 1ml Vial IM 11/12/20 19:08 12.5 mg ONCE ONE Administration Medical Decision Narrative: Patient states that she is having allergy testing done on Friday and not suppose to take Benadryl Patient states that headache is starting to ease off and feel better family at the bedside no vomiting since medication and no longer having nausea [facility] HPI - General Stated complaint: migraine Time Seen by Provider: 11/12/20 18:47 Mode of Arrival: Ambulatory Source of Information: Patient Limitations: No Limitations Description of Symptoms (Recalled from Triage Doc. by RN): PATIENT C/O MIGRAINE WITH NAUSEA X 2 DAYS. SHE STATES IT STARTED AFTER SHE TOOK ZYRTEC AND HAS BEEN CONSTANT SINCE HEENT Symptoms (Recalled from RN notes): Yes Resp Symptoms (Recalled from RN notes): No Skin Symptoms (Recalled from RN notes): No MS Symptoms (Recalled from RN notes): No Functional Status (Recalled from RN notes): WNL - History of Present Illness Provider Complaint: Patient states that she has been having migraines on and off for about a month States that she took a zyrtec a couple days ago and got a migraine shortly after not sure if that caused it or not States that she was suppose to have seen Neurologist but missed her appointment States that she is having a migraine and is having Nausea and vomiting with it Denies worse headache of her life - Related Data Home Medications Medication Instructions Recorded Confirmed Phentermine HCl 37.5 mg PO DAILY 11/12/20 11/12/20 Allergies Allergy/AdvReac Type Severity Reaction Status Date / Time metoclopramide [From REGLAN] Allergy Mild Verified 10/25/20 15:15 montelukast [From SINGULAIR] Allergy Mild Verified 10/25/20 15:15 - Worker's Comp Is this a Worker's Comp case?: No [facility] History - Hepatitis A Screen Drug use history?: No High risk sexual behaviors?: No History of sexually transmitted infection?: No Currently employed?: No Childcare worker?: No Do you have indoor plumbing?: Yes Do you have electricity?: Yes Attestation statement:: This patient has been screened for Hepatitis A risk facto
[2020-11-12 19:08] LABS: UTC Pregnancy Test, Urine Negative (Negative)
[2020-11-12 19:38] VITALS: BP 114/78; PULSE 84; RESP 17; TEMP 36.9; O2SAT 100
== END 2020-11-12 19:42 | disposition home or self-care (01) ==
PROVIDERS: Emergency Provider Nurse Practitioner; PCP Physician Assistant
DX: G43.109 Migraine with aura, not intractable, without status migrainosus (principal); F41.8 Other specified anxiety disorders; F17.210 Nicotine dependence, cigarettes, uncomplicated; Z88.8 Allergy status to other drugs, medicaments and biological substances
CPT/HCPCS: 81025; 96372; 99202; G0463

== ENCOUNTER 2020-11-22 12:07 | Emergency (ER) | payer OTHER, SELFPAY ==
[2020-11-22 12:33] VITALS: BP 124/70; PULSE 94; RESP 17; TEMP 36.9; O2SAT 99; BMI 28.5
[2020-11-22 12:39] VITALS: BP 124/70; PULSE 94; RESP 17; TEMP 36.9; O2SAT 99
--- NOTE | 2020-11-22 13:18 | HMH.EDUTC ---
[facility] – [place], [place] Disposition Clinical Impression: Needle stick injury Disposition: Home, Self-Care Condition on Discharge: Good Instructions: DI for Accidental Exposure to Body Fluids Additional Instructions: Follow up with your primary care doctor for your results. GO TO THE ER FOR ANY WORSENING SYMPTOMS OR CONCERNS Referrals: Cait Bourne PA [Primary Care Provider] - Time of Disposition: 13:22 Medical Decision Making - Medical Records Medical records reviewed: No: I reviewed the patient's medical records. - Issac Inquiry Pt receiving controlled substance: No Vital Signs: 11/22/20 12:33 11/22/20 12:39 Temperature 98.4 F 98.4 F Temperature Source Oral Pulse Rate 94 H Pulse Rate [Left] 94 H Respiratory Rate 17 17 Blood Pressure 124/70 Blood Pressure [Right Arm] 124/70 Blood Pressure Mean [Right Arm] 88 02 Sat by Pulse Oximetry 99 - Lab Data Lab Results 11/22/20 12:55: WBC 8.3, RBC 4.68, Hgb 14.5, Hct 43.9, MCV 93.7, MCH 31.0, MCHC 33.1, RDW 12.2, Plt Count 281, MPV 8.2, Neut % (Auto) 68.4, Lymph % (Auto) 21.9, [place] % (Auto) 4.9, Eos % (Auto) 3.9, Baso % (Auto) 0.9, Neut # (Auto) 5.7, Lymph # (Auto) 1.8, [place] # (Auto) 0.4, Eos # (Auto) 0.3, Baso # (Auto) 0.1 11/22/20 12:55: PT 10.4, INR 0.87 L, APTT 24.4 11/22/20 12:55: Total Bilirubin 1.2, Direct Bilirubin 0.2, Conjugated Bilirubin 0.0, Indirect Bilirubin 1.0 H, Unconjugated Bilirubin 1.0, AST 27, ALT 14, Alkaline Phosphatase 63, Total Protein 8.0, Albumin 4.9 Result diagrams: 11/22/20 12:55 Orders (Tests/Meds): ORDERS Category Date Time Status HIV Panel [id number] Stat Lab 11/22/20 12:55 Received Hepatitis B Core Antibody IgM Stat Lab 11/22/20 12:55 Received Hepatitis B surface antigen screen [HBsAg Screen] Stat Lab 11/22/20 12:55 Received Hepatitis C Antibody Stat Lab 11/22/20 12:55 Received [facility] – [place], [place] HPI - General Stated complaint: needle stick Time Seen by Provider: 11/22/20 13:19 Mode of Arrival: Ambulatory Source of Information: Patient Limitations: No Limitations Description of Symptoms (Recalled from Triage Doc. by RN): Needle stick exposure bloodwork HEENT Symptoms (Recalled from RN notes): No Resp Symptoms (Recalled from RN notes): No Skin Symptoms (Recalled from RN notes): No MS Symptoms (Recalled from RN notes): No Functional Status (Recalled from RN notes): wnl - History of Present Illness Provider Complaint: She went to her allergy doctor and got an allergy shot today. The nurse got stuck by the needle after she was given the shot. She was sent here for labs to be drawn. - Related Data Previous Rx's Medication Instructions Recorded phentermine 37.5 mg tablet 37.5 mg PO DAILY #30 tab 11/14/20 Allergies Allergy/AdvReac Type Severity Reaction Status Date / Time metoclopramide [From REGLAN] Allergy Mild Verified 11/22/20 12:43 montelukast [From SINGULAIR] Allergy Mild Verified 11/22/20 12:43 - Worker's Comp Is this a Worker's Comp case?: No [facility] History - Hepatitis A Screen Drug use history?: No High risk sexual behaviors?: No History of sexually transmitted infection?: No Currently employed?: No Childcare worker?: No Do you have indoor plumbing?: Yes Do you have electricity?: Yes Attestation statement:: This patient has been screened for Hepatitis A risk factors. I have reviewed the patient's past medical history: Yes Medical History: Reports:: Anxiety, Asthma, Depression Denies:: Cancer, Diabetes Mellitus Type 1, Diabetes Mellitus Type 2, Internal Pacemaker, MRSA, Seizures Other Medical History: Reports: Blood Transfusion Reaction, Other Comment: Smoker. HSV. ANXIETY. ASTHMA. ENDOMETRIOSIS Laterality Cases: Right: Other, Bilateral: Tonsillectomy Other Surgeries: Yes: Cholecystectomy, , Dilation and Curettage, Diagnostic Lap (x5), Other. No: Pacemaker Amputation: No Fractures: Yes (foot) Comment: Breast augmentation. laporoscopy x 5 - Social History Smokin
[2020-11-22 13:21] LABS: Basophils # 0.1 K/mm3 (0-0.2); Basophils % 0.9 % (0.1-2.0); Eosinophils # 0.3 K/mm3 (0.0-0.4); Eosinophils % 3.9 % (0.1-12.0); Hematocrit 43.9 % (37.0-47.0); Hemoglobin 14.5 g/dL (12.2-16.2); Lymphocytes # 1.8 K/mm3 (0.7-4.5); Lymphocytes % 21.9 % (10-50); Mean Corpuscular HGB Conc 33.1 g/dL (31.8-35.4); Mean Corpuscular Volume 93.7 fl (81-99); Mean Platelet Volume 8.2 fl (7.4-10.4); Monocytes # 0.4 K/mm3 (0.1-1.0); Monocytes % 4.9 % (1.7-9.3); Neutrophils # 5.7 K/mm3 (1.8-7.8); Neutrophils % 68.4 % (37.0-80.0); Platelet Count 281 K/mm3 (142-424); Red Blood Count 4.68 M/mm3 (4.20-5.40); Red Cell Distribution Width 12.2 % (11.5-17.5); White Blood Count 8.3 K/mm3 (4.8-10.8)
[2020-11-22 13:33] LABS: Activated Partial Thrombo Time 24.4 seconds (22.8-30.6); INR 0.87 (0.9-1.1); Prothrombin Time 10.4 seconds (10.1-12.5)
[2020-11-22 13:36] LABS: Alanine Aminotransferase 14 U/L (12-78); Albumin Level 4.9 g/dl (3.5-5.0); Alkaline Phosphatase 63 U/L (38-126); Aspartate Amino Transferase 27 U/L (14-36); Bilirubin,Direct 0.2 mg/dl (0.0-0.4); Bilirubin,Total 1.2 mg/dl (0.2-1.3)
[2020-11-23 11:59] LABS: HIV Screen 4th Generation wRfx Non Reactive (Non Reactive); Hepatitis B Core Antibody IgM Negative (Negative); Hepatitis B Surface Antigen Negative (Negative); Hepatitis C Antibody 0.1 s/co ratio (0.0-0.9)
== END 2020-11-22 13:28 | disposition home or self-care (01) ==
PROVIDERS: Emergency Provider Nurse Practitioner Family; PCP Physician Assistant
DX: Z20.89 Contact with and (suspected) exposure to other communicable diseases (principal)
CPT/HCPCS: 80076; 85025; 85610; 85730; 86703; 86704; 87340; 87380; 99202; G0432; G0463

== ENCOUNTER → 2021-03-06 15:09 | Outpatient (CLI) | payer OTHER, SELFPAY ==
[2021-03-09 00:05] LABS: Neisseria gonorrhoeae, NAA Negative (Negative)
== END ==
PROVIDERS: Visit Provider Nurse Practitioner Obstetrics & Gynecology
DX: Z72.51 High risk heterosexual behavior (principal)
CPT/HCPCS: 87491; 87591

== ENCOUNTER 2021-06-07 15:43 | Emergency (ER) | payer BC, OTHER, SELFPAY ==
[2021-06-07 15:43] VITALS: BP 113/75; PULSE 88; RESP 18; TEMP 36.9; O2SAT 98; BMI 25.3
[2021-06-07 16:16] LABS: Influenza A, PCR Not Detected (NotDetected); Influenza B, PCR Not Detected (NotDetected)
--- NOTE | 2021-06-07 16:32 | HMH.EDGENADL ---
ED Disposition Clinical Impression: COVID-19 Disposition: Home, Self-Care Condition on Discharge: Good Instructions: DI for COVID-19 (Suspected or Confirmed ) Referrals: Cait Bourne PA [Primary Care Provider] - Time of Disposition: 17:32 - Critical Care Critical Care Time: No Attestation: On 06/07/21, the high probability of a clinically significant, sudden or life threatening deterioration of the following system(s) required my full and direct attention, intervention and personal management. The time I documented below is in addition to time spent performing reported procedures but includes the following listed in this critical care notation. Medical Decision Making - Medical Records Medical records reviewed: Yes: I reviewed the patient's medical records. - Issac Inquiry Pt receiving controlled substance: No Vital Signs: 06/07/21 15:43 Temperature 98.5 F Temperature Source Oral Pulse Rate [Left Radial] 88 Respiratory Rate 18 Blood Pressure [Right Arm] 113/75 Blood Pressure Mean [Right Arm] 87 Blood Pressure Source [Right Arm] Automatic Cuff Blood Pressure Position [Right Arm] Sitting 02 Sat by Pulse Oximetry 98 Oxygen Delivery Method Room Air - Lab Data Lab Results 06/07/21 16:00: SARS-CoV-2 (PCR) Detected A, Influenza A Untype (PCR) Not detected, Influenza Type B (PCR) Not detected 06/07/21 17:00: WBC 6.3, RBC 4.47, Hgb 14.5, Hct 41.5, MCV 92.8, MCH 32.5 H, MCHC 35.0, RDW 12.6, Plt Count 267, MPV 8.8, Neut % (Auto) 58.6, Lymph % (Auto) 31.4, [place] % (Auto) 5.5, Eos % (Auto) 3.4, Baso % (Auto) 1.1, Neut # (Auto) 3.7, Lymph # (Auto) 2.0, [place] # (Auto) 0.4, Eos # (Auto) 0.2, Baso # (Auto) 0.1 06/07/21 17:00: Sodium 139, Potassium 4.0, Chloride 105, Carbon Dioxide 27, Anion Gap 11.0, BUN 13, Creatinine 0.60, Estimated Creat Clear 144, Estimated GFR 120, Est GFR ( Amer) 145, Glucose 89, Calcium 8.8, Magnesium 2.0, Total Bilirubin 0.7, AST 32, ALT 15, Alkaline Phosphatase 61, Total Protein 6.8, Albumin 4.2, Globulin 2.6, Albumin/Globulin Ratio 1.6 Result diagrams: 06/07/21 17:00 06/07/21 17:00 Orders (Tests/Meds): ED MEDICATIONS Generic Name Dose Route Start Last Admin Trade Name Freq PRN Reason Stop Dose Admin Lactated Ringer's 1,000 mls @ 999 mls/hr 06/07/21 16:30 06/07/21 16:53 Lactated Ringer's 1000 Ml Bag IV 06/07/21 17:30 999 mls/hr .Q1H1M DEBBIE Administration Discontinued Medications Generic Name Dose Route Start Last Admin Trade Name Freq PRN Reason Stop Dose Admin Acetaminophen 1,000 mg 06/07/21 16:23 06/07/21 16:53 Acetaminophen 500mg Tab PO 06/07/21 16:24 1,000 mg ONCE ONE Administration Ketorolac Tromethamine 30 mg 06/07/21 16:23 06/07/21 16:53 Ketorolac 30mg/Ml Vial IV 06/07/21 16:24 30 mg ONCE ONE Administration Ondansetron HCl 4 mg 06/07/21 16:23 06/07/21 16:53 Ondansetron 4mg/2ml Vial IV 06/07/21 16:24 4 mg ONCE ONE Administration Oxymetazoline HCl 1 ml 06/07/21 16:23 06/07/21 16:53 Oxymetazoline Nasal [place] 0.05% 15ml NS 06/07/21 16:24 1 dose ONCE ONE Administration Medical Decision Narrative: 25-year-old female with past medical history of asthma and endometriosis who presents to the emergency department with chief complaint of viral upper respiratory symptoms, severe headaches, loss of smell for the last 4 days. Patient has not been vaccinated against COVID-19 and feels like she may have the virus as well as be dehydrated. Given patient's request, will evaluate with a CBC, CMP, magnesium, and COVID-19 and flu rapid swab. Patient will receive a bolus of IV fluids as well as IV Toradol in the emergency department and p.o. Tylenol. On reevaluation, patient felt somewhat improved after treatments. Patient was COVID-19 positive. She had no other lab abnormalities. Patient was advised of these findings, and prescription for Zofran will be sent to her home pharmacy. Patient advised to quarantine
[2021-06-07 16:56] LABS: Coronavirus 19, PCR Detected (NotDetected)
[2021-06-07 17:12] LABS: Basophils # 0.1 K/mm3 (0-0.2); Basophils % 1.1 % (0.1-2.0); Eosinophils # 0.2 K/mm3 (0.0-0.4); Eosinophils % 3.4 % (0.1-12.0); Hematocrit 41.5 % (37.0-47.0); Hemoglobin 14.5 g/dL (12.2-16.2); Lymphocytes % 31.4 % (10-50); Mean Corpuscular Hemoglobin 32.5 pg (27.0-31.2); Mean Corpuscular Volume 92.8 fl (81-99); Mean Platelet Volume 8.8 fl (7.4-10.4); Monocytes # 0.4 K/mm3 (0.1-1.0); Monocytes % 5.5 % (1.7-9.3); Neutrophils # 3.7 K/mm3 (1.8-7.8); Neutrophils % 58.6 % (37.0-80.0); Platelet Count 267 K/mm3 (142-424); Red Blood Count 4.47 M/mm3 (4.20-5.40); Red Cell Distribution Width 12.6 % (11.5-17.5); White Blood Count 6.3 K/mm3 (4.8-10.8)
[2021-06-07 17:15] LABS: Chloride 105 mmol/L (98-107)
[2021-06-07 17:16] LABS: Sodium 139 mmol/L (136-145)
[2021-06-07 17:18] LABS: Alanine Aminotransferase 15 U/L (12-78); Aspartate Amino Transferase 32 U/L (14-36); Blood Urea Nitrogen 13 mg/dl (7-17); Creatinine Clearance Estimated 144 mL/min (50-200); Estimated Glomerular Filt Rate 120 ml/min (>60); GFR (African American) 145 ML/MIN (>60)
[2021-06-07 17:19] LABS: Albumin Level 4.2 g/dl (3.5-5.0); Albumin/Globulin Ratio 1.6 (1.1-1.8); Alkaline Phosphatase 61 U/L (38-126); Bilirubin,Total 0.7 mg/dl (0.2-1.3); Calcium 8.8 mg/dl (8.4-10.2); Carbon Dioxide 27 mmol/L (22.0-30.0); Globulin 2.6 g/dL (1.3-3.2); Glucose 89 mg/dl (74-100); Total Protein,Serum 6.8 g/dl (6.3-8.2)
[2021-06-07 17:54] VITALS: BP 120/70; PULSE 102; RESP 16; TEMP 36.9; O2SAT 98
== END 2021-06-07 17:55 | disposition home or self-care (01) ==
PROVIDERS: Emergency Provider Emergency Medicine; PCP Physician Assistant
DX: U07.1 COVID-19 (principal); J45.909 Unspecified asthma, uncomplicated; F41.8 Other specified anxiety disorders; F17.210 Nicotine dependence, cigarettes, uncomplicated
CPT/HCPCS: 80053; 83735; 85025; 96365; 96375; 99283; C9803; J2405; U0003; U0005

== ENCOUNTER 2021-06-25 16:37 | Emergency (ER) | payer OTHER, SELFPAY ==
[2021-06-25 17:38] VITALS: BP 0/0; PULSE 0; RESP 0; TEMP -17.7; TEMP 0
== END 2021-06-25 17:38 | disposition left against medical advice (07) ==
LOC: UTC 16:40
PROVIDERS: Emergency Provider Nurse Practitioner Family; PCP Physician Assistant
DX: Z53.21 Procedure and treatment not carried out due to patient leaving prior to being seen by health care provider (principal)

== ENCOUNTER → 2021-06-25 17:23 | Outpatient (CLI) | payer BC, OTHER, SELFPAY | PROVIDERS: PCP Physician Assistant; Visit Provider Nurse Practitioner | DX: U07.1 COVID-19 (principal) | CPT/HCPCS: C9803; U0003; U0005 ==

== ENCOUNTER 2021-08-07 20:27 | Emergency (ER) | payer BC, OTHER, SELFPAY ==
[2021-08-07 20:30] VITALS: BP 128/76; PULSE 71; RESP 20; TEMP 36.8; O2SAT 98; BMI 26.2
[2021-08-07 20:47] LABS: Apearance,Urine Clear (Clear); Color,Urine Yellow (Yellow); PH,Urine 5.5 (5.0-8.5)
[2021-08-07 20:48] LABS: Bilirubin,Urine Negative (Negative); Blood, Urine Negative (Negative); Glucose,Urine (UA) Negative (Negative); Ketones,Urine Negative (Negative); Protein,Urine Negative (Negative); UTC Leukocyte Esterase,Urine Negative (Negative); UTC Nitrate,Urine Negative (Negative); Urobilinogen,Urine 0.2 EU/dl (0.2)
--- NOTE | 2021-08-07 21:06 | HMH.EDUTC ---
[facility] [place] [facility] [place] Disposition Clinical Impression: Exposure to COVID-19 virus, Viral syndrome Disposition: Home, Self-Care Condition on Discharge: Good Instructions: DI for COVID-19 (Suspected or Confirmed ), Preventing the Spread of Coronavirus Discharge Instructions Additional Instructions: Drink plenty of fluids. Take tylenol or ibuprofen for pain or fever. Take the medications as directed. Follow up with your regular doctor. GO TO THE ER FOR ANY WORSENING SYMPTOMS Quarantine until you know the results of your covid-19 test. Notify your school or workplace of your results and follow their instructions regarding return to work/school. Prescriptions: Brompheniramine/Pseudoephed/Dm [Bromfed Dm Cough Syrup] 5 ml PO Q6HP PRN #240 ml PRN Reason: Cough Transmission Status: Received by [facility] [facility] Ondansetron [Zofran 4mg ODT] 4 mg PO Q8HP PRN #20 tab PRN Reason: Nausea Transmission Status: Received by [employer] [facility] Referrals: Cait Bourne PA [Primary Care Provider] - Forms: Work/School Release Time of Disposition: 21:17 Medical Decision Making - Medical Records Medical records reviewed: No: I reviewed the patient's medical records. - Issac Inquiry Pt receiving controlled substance: No Vital Signs: 08/07/21 20:30 08/07/21 21:15 Temperature 98.2 F 98.2 F Temperature Source Oral Pulse Rate 71 Pulse Rate [Right Radial] 71 Respiratory Rate 20 20 Blood Pressure 128/76 Blood Pressure [Right Arm] 128/76 Blood Pressure Mean [Right Arm] 93 Blood Pressure Source [Right Arm] Automatic Cuff Blood Pressure Position [Right Arm] Sitting 02 Sat by Pulse Oximetry 98 Oxygen Delivery Method Room Air - Lab Data Lab results reviewed: Yes: I reviewed the patient's lab results. Lab Results 08/07/21 20:41: Urine Color Yellow, Urine Appearance Clear, Urine pH 5.5, Ur Specific Odell 1.030, Urine Protein Negative, Urine Glucose (UA) Negative, Urine Ketones Negative, Urine Blood Negative, Urine Nitrate Negative, Urine Bilirubin Negative, Urine Urobilinogen 0.2, Ur Leukocyte Esterase Negative Orders (Tests/Meds): ORDERS Category Date Time Status Covid-19 Nasal PCR ([facility]) Routine Lab 08/07/21 20:36 Ordered [facility] [place] [facility] [place] HPI - General Stated complaint: expossed, cov test, chills,weakness NAIK, Nose Bleed Time Seen by Provider: 08/07/21 20:45 Mode of Arrival: Ambulatory Source of Information: Patient Limitations: No Limitations Description of Symptoms (Recalled from Triage Doc. by RN): PATIENT C/O WEAKNESS, FATIGUE, HEADACHE, BODY ACHES, CHILLS, NAUSEA, SOA, AND ABDOMINAL CRAMPS SINCE FRIDAY. REPORTS RECENTLY BEING EXPOSED TO CO-WORKER WHO TESTED POSITIVE FOR COVID HEENT Symptoms (Recalled from RN notes): Yes Resp Symptoms (Recalled from RN notes): No Skin Symptoms (Recalled from RN notes): No MS Symptoms (Recalled from RN notes): No Functional Status (Recalled from RN notes): WNL - History of Present Illness Provider Complaint: She states that she has been very tired for the past 2 days. She has had chills but no documented fever. She may have been exposed to covid-19 at her work, so she was told to come here and get tested. She also has had some urinary frequency. She denies any back pain or dysuria. - Related Data Home Medications Medication Instructions Recorded Confirmed cetirizine 10 mg tablet 10 mg PO tab 03/06/21 06/26/21 fluticasone propionate 110 g INHALATION 03/06/21 06/26/21 mcg/actuation HFA aerosol inhaler Previous Rx's Medication Instructions Recorded phentermine 37.5 mg tablet 37.5 mg PO DAILY #30 tab 04/25/21 Brompheniramine/Pseudoephed/Dm 5 ml PO Q6HP PRN #240 ml 08/07/21 [Bromfed Dm Cough Syrup] Ondansetron [Zofran 4mg ODT] 4 mg PO Q8HP PRN #20 tab 08/07/21 Allergies Allergy/AdvReac Type Severity Reaction Status Date / Time metoclopramide [From REGLAN] Allergy Mild Verified 06/26/21 16:25 montelukast [From SINGULAIR] All
[2021-08-07 21:15] VITALS: BP 128/76; PULSE 71; RESP 20; TEMP 36.8; O2SAT 98
== END 2021-08-07 21:24 | disposition home or self-care (01) ==
PROVIDERS: Emergency Provider Nurse Practitioner Family; PCP Physician Assistant
DX: U07.1 COVID-19 (principal); B34.9 Viral infection, unspecified
CPT/HCPCS: 81003; 99203; C9803; G0463; U0003; U0005

== ENCOUNTER 2021-10-19 15:40 | Emergency (ER) | payer BC, OTHER, SELFPAY ==
[2021-10-19 15:42] VITALS: BP 132/91; PULSE 80; RESP 16; TEMP 36.9; O2SAT 100; BMI 26.2
--- NOTE | 2021-10-19 16:23 | HMH.EDGENADL ---
ED Disposition Clinical Impression: Shoulder pain, left Qualifiers: Chronicity: acute Qualified Code(s): M25.512 - Pain in left shoulder Disposition: Home, Self-Care Condition on Discharge: Good Instructions: DI for Acute Pain -- Adult Additional Instructions: Limited use of your left upper extremity. Follow-up with your primary care physician in about 3 to 4 days if you do not notice any improvement. Return to the emergency department if you get worse in any way. Take [id number] Tylenol as needed. Prescriptions: Ketorolac Tromethamine [Toradol 10mg tablet] 10 mg PO Q6HP PRN #12 tab MDD 40mg/day PRN Reason: Moderate Pain Transmission Status: Pending to [facility] Referrals: Cait Bourne PA [Primary Care Provider] - - Critical Care Critical Care Time: No Attestation: On 10/19/21, the high probability of a clinically significant, sudden or life threatening deterioration of the following system(s) required my full and direct attention, intervention and personal management. The time I documented below is in addition to time spent performing reported procedures but includes the following listed in this critical care notation. Medical Decision Making - Medical Records Medical records reviewed: Yes: I reviewed the patient's medical records. - Issac Inquiry Pt receiving controlled substance: No Vital Signs: 10/19/21 15:42 Temperature 98.5 F Temperature Source Oral Pulse Rate [Right] 80 Respiratory Rate 16 Blood Pressure [Right Arm] 132/91 H Blood Pressure Mean [Right Arm] 104 Blood Pressure Source [Right Arm] Automatic Cuff Blood Pressure Position [Right Arm] Sitting 02 Sat by Pulse Oximetry 100 Oxygen Delivery Method Room Air Orders (Tests/Meds): ED MEDICATIONS Discontinued Medications Generic Name Dose Route Start Last Admin Trade Name Freq PRN Reason Stop Dose Admin Ketorolac Tromethamine 30 mg 10/19/21 16:24 10/19/21 16:32 Ketorolac 30mg/Ml Vial IM 10/19/21 16:25 30 mg ONCE ONE Administration - Radiology Data #1 Image(s): Shoulder Image Reviewed: Yes I reviewed the patient's radiology results, Yes I reviewed the patient's radiology image, Yes I have reviewed radiologist's interpretation Preliminary Findings: Normal/NAD Medical Decision Narrative: Patient presents to the emergency department complaining of left shoulder pain. It is worse today than it has been in the past but it is not new. The patient's radiograph of the left shoulder is unremarkable as interpreted by the radiologist. The patient is neurovascularly intact distally. All that the patient can be safely discharged home. The patient does not exhibit any signs or symptoms of coronary artery ischemia. General Adult HPI - General Chief complaint: PAIN Stated complaint: a/o 10/17/2021 at work left shoulder Time Seen by Provider: 10/19/21 16:25 Mode of Arrival: Ambulatory Limitations: No Limitations Description of Symptoms (Recalled from ER Triage Doc. by RN): PT advises her shoulder started bothering her a couple of weeks ago from work. She seen the person at work on Friday who advised her he thought it was a muscle that was bothering her. She advised last night she was at work and lifting and pulling on boxes and this morning woke up with increased pain in the shoulder. - History of Present Illness HPI narrative: The patient states that she woke up from a nap earlier today complaining of left shoulder pain. She has had issues with this shoulder before. She believes it is related to work. The pain is worse with movement. She denies any neurologic deficits. - Related Data Home Medications Medication Instructions Recorded Confirmed cetirizine 10 mg tablet 10 mg PO tab 03/06/21 10/10/21 fluticasone propionate 110 g INHALATION 03/06/21 10/10/21 mcg/actuation HFA aerosol inhaler Previous Rx's Medication Instructions Recorded phentermine 37.5 mg tablet
--- NOTE | 2021-10-19 16:24 | XR_ITS ---
PROCEDURE INFORMATION: Exam: XR Left Shoulder Exam date and time: 10/19/2021 4:44 PM Age: 26 years old Clinical indication: Pain; Shoulder; Left; Additional info: Left shoulder pain x few weeks worse in last few days , no SX, denies , lmp 10/08/21. Shielded. TECHNIQUE: Imaging protocol: XR Left shoulder. Views: 2 or more views. COMPARISON: CR XR CHEST 2V 10/29/2019 11:41 AM FINDINGS: Bones/joints: No acute fracture or dislocation. Normal bone mineralization. Acromioclavicular joint is normal. Glenohumeral joint is normal. Included ribs are unremarkable. Soft tissues: No soft tissue swelling or radiopaque foreign body. IMPRESSION: No acute findings.
--- NOTE | 2021-10-19 16:56 | PC.NURSE ---
pt return from radiology
[2021-10-19 18:26] VITALS: BP 124/70; PULSE 70; RESP 16; TEMP 36.8; O2SAT 98
== END 2021-10-19 18:28 | disposition home or self-care (01) ==
PROVIDERS: Emergency Provider Emergency Medicine; PCP Physician Assistant
DX: M25.512 Pain in left shoulder (principal); X50.0XXA Overexertion from strenuous movement or load, initial encounter; Y92.69 Other specified industrial and construction area as the place of occurrence of the external cause; Y99.0 Civilian activity done for income or pay
CPT/HCPCS: 73030; 96372; 99283

== ENCOUNTER 2021-12-08 10:11 | Emergency (ER) | payer BC, OTHER, SELFPAY ==
--- NOTE | 2021-12-08 10:21 | PC.NURSE ---
pt hooked up to monitor; sister at BS; aware that a nurse will be in shortly to ask questions. No other needs at this time
[2021-12-08 10:31] VITALS: BP 111/68; PULSE 108; RESP 20; TEMP 36.8; O2SAT 99; BMI 24.7
--- NOTE | 2021-12-08 10:57 | HMH.EDGENADL ---
ED Disposition Clinical Impression: Bartholin's gland abscess Disposition: Home, Self-Care Condition on Discharge: Good Instructions: DI for Urinary Tract Infection (UTI), DI for Urinary Tract Infection in Children Additional Instructions: Take antibiotics as prescribed. Warm sitz bath's once to twice a day. Ibuprofen and [place] as needed for pain. Follow-up with [facility], Dr. Arcos, next week. Call Friday to make appointment to be seen. Additional instructions for CONTROLLED SUBSTANCES: You have been prescribed a medication that is a controlled substance. Controlled substances include pain medications known as opiates and sedative nerve medications known as benzodiazepines. Tramadol, fioricet, and gabapentin are also controlled substances. Some common opiates include: Codeine (such as Tylenol #3) Hydrocodone (Vicodin, Lortab, Lorcet, [place]) Oxycodone (Percocet, Percodan, Oxycodone, Oxy IR) Some common benzodiazepines include: Diazepam (Valium) Lorazepam (Ativan) Alprazolam (Xanax) Clonazepam (Klonopin) Oxazepam (Serax) All of these controlled substances are highly addictive and frequently abused. Misuse can and frequently does lead to addiction as well as overdose and . Medication should be stored in a locked cabinet or other secure storage unit. Do not store the medication in a motor vehicle. Short term supplies, 3 days or less, are prescribed because of the highly addictive nature of the medication. Any of the controlled substance medication NOT taken should be disposed of properly and NOT SAVED. The recommended method of disposing of unused medications is: Place the medicines in a sealable plastic bag. If the medicine is a solid, crush it or add water to dissolve it. Add something undesirable (cat litter, coffee grounds, etc.) Dispose of sealed bag in household trash Do not flush or pour unused medicines down a sink or drain. Controlled substances should not be shared, given away or sold. Because of the addictive nature and frequent abuse, these medications are sometimes stolen. These medications should be kept in a safe place where they cannot be stolen. Do not keep them in your car or purse. Lost or stolen prescriptions for controlled substances WILL NOT BE REFILLED in this emergency department, regardless of whether a police report was filed. Prescriptions: Ibuprofen [Ibuprofen 600mg Tab] 600 mg PO Q6HP PRN #20 tab PRN Reason: Moderate Pain Transmission Status: Pending to [facility] Hydrocod/Acet 5/325 mg [[place] 5/325mg tablet] 1 tab PO Q6HP PRN #10 tab PRN Reason: Pain Transmission Status: Sent to [facility] ceFIXime [Cefixime] 400 mg PO DAILY #7 cap Transmission Status: Pending to [facility] clindamycin HCL [Clindamycin HCl] 300 mg PO QID #28 cap Transmission Status: Pending to [facility] Referrals: Cait Bourne PA [Primary Care Provider] - Jesse Arcos MD [Staff Physician] - - Critical Care Critical Care Time: No Attestation: On 12/08/21, the high probability of a clinically significant, sudden or life threatening deterioration of the following system(s) required my full and direct attention, intervention and personal management. The time I documented below is in addition to time spent performing reported procedures but includes the following listed in this critical care notation. Medical Decision Making - Issac Inquiry Pt receiving controlled substance: Yes Issac was queried for this patient: Yes Risks and benefits of using a controlled substance: were discussed with pt by me Vital Signs: 12/08/21 10:31 Temperature 98.3 F Temperature Source Oral Pulse Rate [Left Radial] 108 H Respiratory Rate 20 Blood Pressure [Right Arm] 111/68 Blood Pressure Mean [Right Arm] 82 Blood Pressure Source [Right Arm] Automatic Cuff Blood Pressure Position [Right Arm] Sitting 02 Sat by Pulse Oximetry 99 Ox
--- NOTE | 2021-12-08 11:06 | PC.NURSE ---
patient ambulatory to restroom; no complications
--- NOTE | 2021-12-08 11:10 | PC.NURSE ---
Pt returned to room from restroom. Urine sent to lab at this time.
--- NOTE | 2021-12-08 11:15 | PC.NURSE ---
GISEL INGRAM at BS; October, at BS to photographic aide
--- NOTE | 2021-12-08 11:21 | PC.NURSE ---
assisted MD with vaginal exam, pt tolerated well
[2021-12-08 11:24] LABS: Urine Pregnancy, HCG Qual. Negative (Negative)
[2021-12-08 11:33] VITALS: BP 110/60; PULSE 99; RESP 20; TEMP 36.8; O2SAT 99
--- NOTE | 2021-12-08 11:35 | PC.NURSE ---
OLGA LIDIA Mcclain at discussing discharge instructions
[2021-12-11 02:07] LABS: Neisseria gonorrhoeae, NAA Negative (Negative)
== END 2021-12-08 11:35 | disposition home or self-care (01) ==
PROVIDERS: Emergency Provider Emergency Medicine; PCP Physician Assistant
DX: N75.1 Abscess of Bartholin's gland (principal); F41.8 Other specified anxiety disorders; J45.909 Unspecified asthma, uncomplicated; F17.210 Nicotine dependence, cigarettes, uncomplicated
CPT/HCPCS: 81025; 87491; 87591; 99283

== ENCOUNTER 2021-12-10 13:52 | Emergency (ER) | payer BC, OTHER, SELFPAY ==
--- NOTE | 2021-12-10 15:42 | HMH.EDGENADL ---
ED Disposition Clinical Impression: Swelling of labia Migraine Qualifiers: Migraine type: unspecified Status migrainosus presence: without status migrainosus Intractability: not intractable Qualified Code(s): G43.909 - Migraine, unspecified, not intractable, without status migrainosus Disposition: Home, Self-Care Condition on Discharge: Good Additional Instructions: Please take your antibiotics as prescribed and follow-up with your SEISMOGRAPH CHIEF tomorrow for reassessment. If your condition worsens or any other concerns arise, please return to the emergency department. Referrals: Cait Bourne PA [Primary Care Provider] - - Critical Care Critical Care Time: No Attestation: On 12/10/21, the high probability of a clinically significant, sudden or life threatening deterioration of the following system(s) required my full and direct attention, intervention and personal management. The time I documented below is in addition to time spent performing reported procedures but includes the following listed in this critical care notation. Medical Decision Making - Medical Records Medical records reviewed: Yes: I reviewed the patient's medical records. - Issac Inquiry Pt receiving controlled substance: No Vital Signs: 12/10/21 15:48 Temperature 98.2 F Temperature Source Oral Pulse Rate [Radial] 92 H Respiratory Rate 16 Blood Pressure [Right Arm] 109/63 L Blood Pressure Mean [Right Arm] 78 Blood Pressure Position [Right Arm] Sitting 02 Sat by Pulse Oximetry 98 Oxygen Delivery Method Room Air - Lab Data Lab results reviewed: Yes: I reviewed the patient's lab results. Lab Results 12/10/21 16:50: WBC 15.4 H, RBC 4.03 L, Hgb 12.9, Hct 39.2, MCV 97.4, MCH 32.0 H, MCHC 32.9, RDW 12.8, Plt Count 287, MPV 9.2, Neut % (Auto) 85.9 H, Lymph % (Auto) 7.3 L, [place] % (Auto) 4.7, Eos % (Auto) 1.6, Baso % (Auto) 0.5, Neut # (Auto) 13.2 H, Lymph # (Auto) 1.1, [place] # (Auto) 0.7, Eos # (Auto) 0.3, Baso # (Auto) 0.1 12/10/21 16:50: Sodium 136, Potassium 4.3, Chloride 106, Carbon Dioxide 27, Anion Gap 7.3, BUN 6 L, Creatinine 0.60, Estimated Creat Clear 149, Estimated GFR 119, Est GFR ( Amer) 144, Glucose 97, Calcium 8.6, Total Bilirubin 0.7, AST 24, ALT 15, Alkaline Phosphatase 65, C-Reactive Protein 23.2 H, Total Protein 6.5, Albumin 3.7, Globulin 2.8, Albumin/Globulin Ratio 1.3 12/10/21 16:50: Lactate 0.6 L Result diagrams: 12/10/21 16:50 12/10/21 16:50 Orders (Tests/Meds): ED MEDICATIONS Generic Name Dose Route Start Last Admin Trade Name Freq PRN Reason Stop Dose Admin Sodium Chloride 10 ml 12/10/21 16:44 Sodium Chloride 0.9% 10ml Flush Syringe IV 01/09/22 16:43 NEEDED PRN Maintain IV Site Discontinued Medications Generic Name Dose Route Start Last Admin Trade Name Freq PRN Reason Stop Dose Admin Ketorolac Tromethamine 15 mg 12/10/21 15:54 12/10/21 17:05 Ketorolac 30mg/Ml Vial IV 12/10/21 15:55 15 mg ONCE ONE Administration Prochlorperazine Edisylate 10 mg 12/10/21 15:55 12/10/21 17:05 Prochlorperazine 10mg/2ml Vial IV 12/10/21 15:56 10 mg ONCE ONE Administration ORDERS Category Date Time Status Complete Blood Count Auto Diff Stat Lab 12/10/21 16:50 Results Medical Decision Narrative: Patient is a healthy 26-year-old female presenting with a chief complaint of left labial pain and swelling. Patient states that she is unable to tolerate the pain at home. Differential diagnosis includes, but is not limited to, Bartholin cyst, abscess, cellulitis, vesicular rash, other. On initial exam, patient is hemodynamically stable and nontoxic-appearing and afebrile. Exam is consistent with swollen and indurated left labia majora but without crepitus, significant erythema extending to the mons or perineum or appreciable drainage. She was evaluated CBC, CMP, CRP and treated with a migraine cocktail. On reassessment, patient reports improvement and resolution of her
[2021-12-10 15:48] VITALS: BP 109/63; PULSE 92; RESP 16; TEMP 36.8; O2SAT 98; BMI 26.4
[2021-12-10 17:01] LABS: Basophils # 0.1 K/mm3 (0-0.2); Basophils % 0.5 % (0.1-2.0); Eosinophils # 0.3 K/mm3 (0.0-0.4); Eosinophils % 1.6 % (0.1-12.0); Hematocrit 39.2 % (37.0-47.0); Hemoglobin 12.9 g/dL (12.2-16.2); Lymphocytes # 1.1 K/mm3 (0.7-4.5); Lymphocytes % 7.3 % (10-50); Mean Corpuscular HGB Conc 32.9 g/dL (31.8-35.4); Mean Corpuscular Volume 97.4 fl (81-99); Mean Platelet Volume 9.2 fl (7.4-10.4); Monocytes # 0.7 K/mm3 (0.1-1.0); Monocytes % 4.7 % (1.7-9.3); Neutrophils # 13.2 K/mm3 (1.8-7.8); Neutrophils % 85.9 % (37.0-80.0); Platelet Count 287 K/mm3 (142-424); Red Blood Count 4.03 M/mm3 (4.20-5.40); Red Cell Distribution Width 12.8 % (11.5-17.5); White Blood Count 15.4 K/mm3 (4.8-10.8)
[2021-12-10 17:10] LABS: MANUAL DIFFERENTIAL MANUAL DIFFERENTIAL (MANUAL DIFF)
[2021-12-10 17:16] LABS: Chloride 106 mmol/L (98-107); Potassium 4.3 mmoL/L (3.5-5.1); Sodium 136 mmol/L (136-145)
[2021-12-10 17:18] LABS: Alanine Aminotransferase 15 U/L (12-78); Alkaline Phosphatase 65 U/L (38-126); Aspartate Amino Transferase 24 U/L (14-36); Bilirubin,Total 0.7 mg/dl (0.2-1.3); Blood Urea Nitrogen 6 mg/dl (7-17); Creatinine Clearance Estimated 149 mL/min (50-200); Estimated Glomerular Filt Rate 119 ml/min (>60); GFR (African American) 144 ML/MIN (>60)
[2021-12-10 17:19] LABS: Albumin Level 3.7 g/dl (3.5-5.0); Albumin/Globulin Ratio 1.3 (1.1-1.8); Anion Gap 7.3 mEq/L (5-15); Calcium 8.6 mg/dl (8.4-10.2); Carbon Dioxide 27 mmol/L (22.0-30.0); Globulin 2.8 g/dL (1.3-3.2); Glucose 97 mg/dl (74-100); Lactic Acid 0.6 mmol/L (0.7-2.1); Total Protein,Serum 6.5 g/dl (6.3-8.2)
[2021-12-10 17:24] LABS: C-Reactive Protein 23.2 mg/L (0-4)
[2021-12-10 17:58] LABS: Lymphocytes % 11 % (10-50); Monocytes % 4 % (2-9); Neutrophils % 85 % (42-76); Total Cells Counted 100
[2021-12-10 17:59] LABS: Anisocytosis 1+; Platelet Estimate Normal
[2021-12-10 18:34] VITALS: BP 125/65; PULSE 78; RESP 16; TEMP 36.6; O2SAT 98
== END 2021-12-10 18:35 | disposition home or self-care (01) ==
PROVIDERS: Emergency Provider Emergency Medicine; PCP Physician Assistant
DX: N76.89 Other specified inflammation of vagina and vulva (principal); B00.9 Herpesviral infection, unspecified; N80.9 Endometriosis, unspecified; G40.909 Epilepsy, unspecified, not intractable, without status epilepticus; J45.909 Unspecified asthma, uncomplicated; F32.A Depression, unspecified; F41.9 Anxiety disorder, unspecified; F17.210 Nicotine dependence, cigarettes, uncomplicated; Z79.1 Long term (current) use of non-steroidal anti-inflammatories (NSAID); Z79.51 Long term (current) use of inhaled steroids; Z79.899 Other long term (current) drug therapy; Z88.5 Allergy status to narcotic agent; Z88.8 Allergy status to other drugs, medicaments and biological substances; Z82.49 Family history of ischemic heart disease and other diseases of the circulatory system
CPT/HCPCS: 80053; 83605; 85007; 85025; 86140; 96374; 96375; 99284

== ENCOUNTER → 2021-12-11 11:26 | Outpatient (CLI) | payer BC, OTHER, SELFPAY | PROVIDERS: PCP Physician Assistant; Visit Provider Nurse Practitioner Obstetrics & Gynecology | DX: N75.1 Abscess of Bartholin's gland (principal); B96.20 Unspecified Escherichia coli [E. coli] as the cause of diseases classified elsewhere | CPT/HCPCS: 87070; 87077; 87186; 87205 ==

== ENCOUNTER 2022-01-08 09:05 | Outpatient (RCR) | payer BC, OTHER, SELFPAY ==
--- NOTE | 2022-01-08 10:16 | HMH.OTOPEV ---
OT Inpatient Evaluation Rehab OT Outpatient Eval Start: 01/08/22 10:04 Freq: Status: Active Protocol: Document 01/08/22 10:04 MAGDA (Rec: 01/08/22 10:16 MAGDA [id number]) Electronically Signed By Aleshia Johnston OT 01/08/22 10:04 Outpatient Therapy Subjective History Subjective History 26 year old female referred to skilled OP OT services for left shoulder pain. Patient stated to have pain in the left shoulder for the past 2 months. Patient stated to work at a [employer] that involved her to lift 25-125lb loads and repetive movement of the left shld. X-ray completed on 10/19/21 with no acute findings. Patient stated to have pain to the left shoulder after AROM and applying pressure/sleeping. Patient stated to have numbness/tingling in the left pinky finger during active movement of the left shoulder. OT provided patient with BELLA and UE david for HEP exer. Chief Complaint Pain,Weakness Symptom Type Ache,Numbness Symptoms Relieved By Rest/Positioning Symptoms Aggravated By Physical Activity Prior Functional Limitations None Current Functional Limitations Reaching,Lifting,Sleeping, Recreation Activity Symptom Description Intermittent Level of pain today (0-10) 0 Pain scale - at its best (0-10) 0 Pain scale - at its worst (0-10) 10 Shoulder/Elbow Eval Shoulder Objective Measurements Shoulder ROM Left Shoulder Abduction Active Range of 148 Motion (degrees) Shoulder Flexion Active Range of Motion 120 (degrees) Query Text: Shoulder External Rotation Active Range 70 of Motion (degrees) Shoulder Internal Rotation Active Range 30 of Motion (degrees) pain with active ROM shoulder exam left standard Shoulder MMT Shoulder Abduction Strength Grade 3- Fair- Shoulder Extension Strength Grade 3- Fair- Shoulder Flexion Strength Grade 3- Fair- Shoulder Horizontal Adduction Strength 3- Fair- Grade Infraspinatus/Teres Minor Strength Grade 3- Fair- Shoulder External Rotation Strength 3- Fair- Grade Shoulder Internal Rotation Strength 3-
== END 2022-01-08 09:10 | disposition home or self-care (01) ==
LOC: OT 09:05
PROVIDERS: PCP Physician Assistant; Visit Provider Nurse Practitioner Family
DX: M25.512 Pain in left shoulder (principal)
CPT/HCPCS: 97165

== ENCOUNTER → 2022-02-05 06:07 | Outpatient (CLI) | payer OTHER, SELFPAY ==
[2022-02-06 22:09] LABS: Neisseria gonorrhoeae, NAA Negative (Negative)
== END ==
PROVIDERS: Visit Provider Nurse Practitioner Obstetrics & Gynecology
DX: Z72.51 High risk heterosexual behavior (principal)
CPT/HCPCS: 87491; 87591

== ENCOUNTER 2022-02-14 11:23 | Emergency (ER) | payer BC, OTHER, SELFPAY ==
--- NOTE | 2022-02-14 11:31 | HMH.EDUTC ---
[facility] [place] Clinical Impression: Exposure to COVID-19 virus, Encounter for screening for COVID-19 Disposition: Home, Self-Care Condition on Discharge: Good Instructions: DI for COVID-19 (Suspected or Confirmed ), Preventing the Spread of Coronavirus Discharge Instructions Additional Instructions: Drink plenty of fluids. Take tylenol or ibuprofen for pain or fever. Take the medications as directed. Follow up with your regular doctor. GO TO THE ER FOR ANY WORSENING SYMPTOMS Quarantine until you know the results of your covid-19 test. Notify your school or workplace of your results and follow their instructions regarding return to work/school. Referrals: Cait Bourne PA [Primary Care Provider] - Time of Disposition: 12:05 Medical Decision Making - Medical Records Medical records reviewed: No: I reviewed the patient's medical records. - Issac Inquiry Pt receiving controlled substance: No Vital Signs: 02/14/22 11:52 02/14/22 12:20 Temperature 98.6 F 98.6 F Temperature Source Oral Pulse Rate 94 H Pulse Rate [Left] 94 H Respiratory Rate 16 16 Blood Pressure 112/68 Blood Pressure [Right Arm] 112/68 Blood Pressure Mean [Right Arm] 82 02 Sat by Pulse Oximetry 99 Orders (Tests/Meds): ORDERS Category Date Time Status Covid-19 Nasal PCR ([facility]) Routine Lab 02/14/22 11:46 [place] [facility] [place] - General Stated complaint: exposure to covid Time Seen by Provider: 02/14/22 12:04 - History of Present Illness Provider Complaint: She may have been indirectly exposed to covid-19. She denies any symptoms or complaints so far. - Related Data Home Medications Medication Instructions Recorded Confirmed cetirizine 10 mg tablet 10 mg PO tab 03/06/21 02/04/22 fluticasone propionate 110 g INHALATION 03/06/21 02/04/22 mcg/actuation HFA aerosol inhaler Previous Rx's Medication Instructions Recorded Ibuprofen [Ibuprofen 600mg Tab] 600 mg PO Q6HP PRN #20 tab 12/08/21 fluoxetine 10 mg capsule 10 mg PO HS 14 Days #14 cap 01/03/22 fluoxetine 20 mg capsule 20 mg PO DAILY #30 cap 01/03/22 phentermine 37.5 mg tablet 37.5 mg PO DAILY #30 tab 01/03/22 Allergies Allergy/AdvReac Type Severity Reaction Status Date / Time metoclopramide [From REGLAN] Allergy Mild Verified 02/14/22 11:56 montelukast [From SINGULAIR] Allergy Mild Verified 02/14/22 11:56 hydrocodone AdvReac Verified 02/14/22 11:56 [facility] History - Hepatitis A Screen Attestation statement:: This patient has been screened for Hepatitis A risk factors. I have reviewed the patient's past medical history: Yes Medical History: Reports:: Anxiety, Asthma, Depression Denies:: Cancer, Diabetes Mellitus Type 1, Diabetes Mellitus Type 2, Internal Pacemaker, MRSA, Seizures Other Medical History: Reports: Blood Transfusion Reaction, Other Comment: Smoker. HSV. ANXIETY. ASTHMA. ENDOMETRIOSIS Laterality Cases: Right: Other, Bilateral: Tonsillectomy Other Surgeries: Yes: Cholecystectomy, , Dilation and Curettage, Diagnostic Lap (x5), Other. No: Pacemaker Amputation: No Fractures: Yes (foot) Comment: Breast augmentation. 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
[2022-02-14 11:52] VITALS: BP 112/68; PULSE 94; RESP 16; TEMP 37; O2SAT 99; BMI 26.9
[2022-02-14 12:20] VITALS: BP 112/68; PULSE 94; RESP 16; TEMP 37
== END 2022-02-14 12:24 | disposition home or self-care (01) ==
PROVIDERS: Emergency Provider Nurse Practitioner Family; PCP Physician Assistant
DX: Z20.822 Contact with and (suspected) exposure to COVID-19 (principal)
CPT/HCPCS: 99212; C9803; G0463; U0003; U0005

== ENCOUNTER 2022-02-21 01:12 | Emergency (ER) | payer OTHER, SELFPAY ==
[2022-02-21 01:14] VITALS: BP 121/80; PULSE 108; RESP 17; TEMP 37; O2SAT 100; BMI 26.9
[2022-02-21 01:30] VITALS: BP 120/77; PULSE 112; O2SAT 100
[2022-02-21 01:40] LABS: Microscopic, Urine URINE MICROSCOPIC (MICROSCOPIC)
[2022-02-21 01:43] LABS: Appearance,Urine CLEAR (Clear); Bilirubin,Urine Negative (Negative); Blood, Urine Negative (Negative); Color,Urine YELLOW (Yellow); Glucose,Urine (UA) Negative (Negative); Ketones,Urine Negative (Negative); Leukocyte Esterase,Urine 1+ (Negative); Nitrate,Urine Negative (Negative); Protein,Urine Negative (Negative); Specific Gravity, Urine <= 1.005 (1.005-1.030); Urobilinogen,Urine 0.2 EU/dl (0.2)
[2022-02-21 01:45] LABS: Urine Pregnancy, HCG Qual. Positive (Negative)
[2022-02-21 02:00] VITALS: BP 123/82; PULSE 93; O2SAT 100
--- NOTE | 2022-02-21 02:00 | US_ITS ---
PROCEDURE INFORMATION: Exam: US , Transvaginal Exam date and time: 02/21/2022 2:29 AM Age: 26 years old Clinical indication: complicated by abdominal or pelvic pain; Left lower quadrant; First trimester (<14 weeks 0 days); Gestational age or lmp: 5w4d; ; Patient HX: Early preg with llq pain-- bhcgs pending at this time; Additional info: 5-6 wk preg, vag bleed w/ pain. Began @ 0030 TECHNIQUE: Imaging protocol: Real-time transvaginal obstetrical ultrasound of the maternal pelvis with image documentation. Transvaginal imaging was used for better evaluation of the fetus, adnexa, and/or cervix. COMPARISON: TRANVAG US transvaginal 08/25/2018 3:22 PM FINDINGS: Gestation: Intrauterine gestational sac is not demonstrated. MATERNAL: Uterus: Endometrium measures 4 mm in thickness. Right ovary/adnexa: No extraovarian adnexal mass. Intraperitoneal space: No pelvic free fluid. Soft tissues: There in section scar noted. IMPRESSION: of unknown location. Intrauterine gestational sac is not demonstrated. Differential diagnosis includes early normal IUP, early ectopic , or missed spontaneous . Recommend serial HCG and ultrasound to differentiate.
--- NOTE | 2022-02-21 02:00 | PC.NURSE ---
Called [facility] u/s tech for OB u/s- Yanna is on-call
--- NOTE | 2022-02-21 02:00 | HMH.EDPREG ---
ED Disposition Clinical Impression: Qualifiers: Weeks of gestation: less than 8 weeks Qualified Code(s): Z3A.01 - Less than 8 weeks gestation of UTI (urinary tract infection) Qualifiers: Urinary tract infection type: site unspecified Hematuria presence: without hematuria Qualified Code(s): N39.0 - Urinary tract infection, site not specified Disposition: Home, Self-Care Condition on Discharge: Fair Instructions: DI for -- Discomforts and Remedies, DI for Vaginal Bleeding During Additional Instructions: see pcp for follow up Referrals: Cait Bourne PA [Primary Care Provider] - - Critical Care Critical Care Time: No Attestation: On 02/21/22, the high probability of a clinically significant, sudden or life threatening deterioration of the following system(s) required my full and direct attention, intervention and personal management. The time I documented below is in addition to time spent performing reported procedures but includes the following listed in this critical care notation. Medical Decision Making - Medical Records Medical records reviewed: Yes: I reviewed the patient's medical records. - Issac Inquiry Pt receiving controlled substance: No Vital Signs: 02/21/22 01:14 Temperature 98.6 F Temperature Source Oral Pulse Rate [Right] 108 H Respiratory Rate 17 Blood Pressure [Right Arm] 121/80 Blood Pressure Mean [Right Arm] 93 Blood Pressure Source [Right Arm] Automatic Cuff 02 Sat by Pulse Oximetry 100 Oxygen Delivery Method Room Air - Lab Data Lab results reviewed: Yes: I reviewed the patient's lab results. Lab Results 02/21/22 01:29: Urine Color Yellow, Urine Appearance Clear, Urine pH 6.0, Ur Specific [place] <= 1.005, Urine Protein Negative, Urine Glucose (UA) Negative, Urine Ketones Negative, Urine Blood Negative, Urine Nitrate Negative, Urine Bilirubin Negative, Urine Urobilinogen 0.2, Ur Leukocyte Esterase 1+ A, Urine WBC 10-20, Ur Squamous Epith Cells 5-10, Urine Bacteria 1+ 02/21/22 01:29: Urine HCG, Qual Positive 02/21/22 01:50: C-Reactive Protein 1.0, HCG, Quant 723 H 02/21/22 01:50: ESR 13 02/21/22 01:50: Amylase 71, Procalcitonin 0.037 02/21/22 01:50: WBC 15.9 H, RBC 4.24, Hgb 12.9, Hct 40.7, MCV 96.0, MCH 30.4, MCHC 31.7 L, RDW 12.8, Plt Count 328, MPV 8.2, Neut % (Auto) 76.4, Lymph % (Auto) 15.8, [place] % (Auto) 3.6, Eos % (Auto) 3.4, Baso % (Auto) 0.8, Neut # (Auto) 12.1 H, Lymph # (Auto) 2.5, [place] # (Auto) 0.6, Eos # (Auto) 0.5 H, Baso # (Auto) 0.1, Total Counted 100, Neutrophils % (Manual) 75, Lymphocytes % (Manual) 19, Monocytes % (Manual) 4, Eosinophils % (Manual) 2, Platelet Estimate Normal, Stomatocytes 1+ 02/21/22 01:50: Sodium 133 L, Potassium 3.5, Chloride 103, Carbon Dioxide 24, Anion Gap 9.5, BUN 13, Creatinine 0.70, Estimated Creat Clear 130, Estimated GFR 100, Est GFR ( Amer) 121, Glucose 79, Calcium 9.1, Total Bilirubin 1.2, AST 37 H, ALT 18, Alkaline Phosphatase 66, Total Protein 7.4, Albumin 4.4, Globulin 3.0, Albumin/Globulin Ratio 1.5, Lipase 77 Result diagrams: 02/21/22 01:50 02/21/22 01:50 Orders (Tests/Meds): ED MEDICATIONS Generic Name Dose Route Start Last Admin Trade Name Freq PRN Reason Stop Dose Admin Sodium Chloride 1,000 mls @ 999 mls/hr 02/21/22 01:45 Sod Chlor 0.9% 1000ml Bag IV 02/21/22 02:45 .Q1H1M DEBBIE Ceftriaxone Sodium 1 gm/ 50 mls @ 100 mls/hr 02/21/22 03:30 Sodium Chloride IV 03/07/22 03:29 Q24H DEBBIE ORDERS Category Date Time Status Urine Culture Stat Micro 02/21/22 01:29 Received - US Data US Images: Pelvis ED US Reviewed: Yes: I have viewed radiologist's interpretation Findings Narrative: see report Medical Decision Narrative: nodef location of preg and will await urine cult ure and check beta friday HPI - General Chief complaint: Vaginal Bleeding Stated complaint: 5-6 weeks with cramping and bleeding Time Seen by
[2022-02-21 02:09] LABS: Basophils # 0.1 K/mm3 (0-0.2); Basophils % 0.8 % (0.1-2.0); Eosinophils # 0.5 K/mm3 (0.0-0.4); Eosinophils % 3.4 % (0.1-12.0); Hematocrit 40.7 % (37.0-47.0); Hemoglobin 12.9 g/dL (12.2-16.2); Lymphocytes # 2.5 K/mm3 (0.7-4.5); Lymphocytes % 15.8 % (10-50); Mean Corpuscular HGB Conc 31.7 g/dL (31.8-35.4); Mean Corpuscular Hemoglobin 30.4 pg (27.0-31.2); Mean Platelet Volume 8.2 fl (7.4-10.4); Monocytes # 0.6 K/mm3 (0.1-1.0); Monocytes % 3.6 % (1.7-9.3); Neutrophils # 12.1 K/mm3 (1.8-7.8); Neutrophils % 76.4 % (37.0-80.0); Platelet Count 328 K/mm3 (142-424); Red Blood Count 4.24 M/mm3 (4.20-5.40); Red Cell Distribution Width 12.8 % (11.5-17.5); White Blood Count 15.9 K/mm3 (4.8-10.8)
[2022-02-21 02:11] LABS: Bacteria,Urine 1+ /lpf
[2022-02-21 02:12] LABS: MANUAL DIFFERENTIAL MANUAL DIFFERENTIAL (MANUAL DIFF)
[2022-02-21 02:18] LABS: Alanine Aminotransferase 18 U/L (12-78); Albumin Level 4.4 g/dl (3.5-5.0); Albumin/Globulin Ratio 1.5 (1.1-1.8); Alkaline Phosphatase 66 U/L (38-126); Amylase 71 U/L (30-110); Anion Gap 9.5 mEq/L (5-15); Aspartate Amino Transferase 37 U/L (14-36); Bilirubin,Total 1.2 mg/dl (0.2-1.3); Blood Urea Nitrogen 13 mg/dl (7-17); Calcium 9.1 mg/dl (8.4-10.2); Carbon Dioxide 24 mmol/L (22.0-30.0); Chloride 103 mmol/L (98-107); Creatinine Clearance Estimated 130 mL/min (50-200); Estimated Glomerular Filt Rate 100 ml/min (>60); GFR (African American) 121 ML/MIN (>60); Glucose 79 mg/dl (74-100); Lipase 77 U/L (23-300); Potassium 3.5 mmoL/L (3.5-5.1); Sodium 133 mmol/L (136-145); Total Protein,Serum 7.4 g/dl (6.3-8.2)
--- NOTE | 2022-02-21 02:24 | PC.NURSE ---
Pt gone to RAD for U/S
--- NOTE | 2022-02-21 02:28 | PC.NURSE ---
pt taken to u/s via wheelchair
[2022-02-21 02:37] LABS: Procalcitonin 0.037 ng/mL (0.0-2.0)
[2022-02-21 02:43] LABS: HCG,Quantitative 723 mIU/ml (0-5.42)
--- NOTE | 2022-02-21 02:52 | PC.NURSE ---
pt back from u/s via wheelchair
[2022-02-21 02:55] LABS: Erythrocyte Sedimentation Rate 13 mm/hr (0-20)
[2022-02-21 03:30] VITALS: BP 125/73; PULSE 89; O2SAT 100
[2022-02-21 03:47] LABS: Eosinophils % 2 % (0-3); Lymphocytes % 19 % (10-50); Monocytes % 4 % (2-9); Neutrophils % 75 % (42-76); Total Cells Counted 100
[2022-02-21 03:48] LABS: Platelet Estimate Normal; Stomatocytes 1+
[2022-02-21 04:00] VITALS: BP 136/86; PULSE 84; O2SAT 100
[2022-02-21 04:08] VITALS: BP 126/86; PULSE 82; RESP 16; TEMP 37; O2SAT 100
== END 2022-02-21 04:22 | disposition home or self-care (01) ==
PROVIDERS: Emergency Provider Emergency Medicine; PCP Physician Assistant
DX: O26.891 Other specified pregnancy related conditions, first trimester (principal); N39.0 Urinary tract infection, site not specified; Z79.899 Other long term (current) drug therapy; Z88.8 Allergy status to other drugs, medicaments and biological substances; Z88.6 Allergy status to analgesic agent; J45.909 Unspecified asthma, uncomplicated; F32.A Depression, unspecified; F41.9 Anxiety disorder, unspecified; Z72.0 Tobacco use
CPT/HCPCS: 76817; 80053; 81001; 81025; 82150; 83690; 84145; 84702; 85007; 85025; 85651; 86140; 87086; 96365; 96367; 99284; J0696

== ENCOUNTER → 2022-02-21 14:30 | Outpatient (CLI) | payer OTHER, SELFPAY ==
[2022-02-21 16:16] LABS: HCG,Quantitative 942 mIU/ml (0-5.42)
[2022-02-23 08:14] LABS: Progesterone 11.8 ng/mL (.)
== END ==
PROVIDERS: PCP Physician Assistant; Visit Provider Nurse Practitioner Obstetrics & Gynecology
DX: Z34.90 Encounter for supervision of normal pregnancy, unspecified, unspecified trimester (principal)
CPT/HCPCS: 36415; 84144; 84702

== ENCOUNTER → 2022-02-25 11:50 | Outpatient (CLI) | payer OTHER, SELFPAY ==
[2022-02-25 13:12] LABS: HCG,Quantitative 5059 mIU/ml (0-5.42)
== END ==
PROVIDERS: PCP Physician Assistant; Visit Provider Nurse Practitioner Obstetrics & Gynecology
DX: N92.6 Irregular menstruation, unspecified (principal)
CPT/HCPCS: 36415; 84702

== ENCOUNTER 2022-03-20 19:04 | Emergency (ER) | payer OTHER, SELFPAY ==
[2022-03-20 19:45] VITALS: BP 118/64; PULSE 81; RESP 18; TEMP 37.2; O2SAT 98; BMI 25.4
[2022-03-20 20:02] VITALS: BP 118/64; PULSE 81; RESP 18; TEMP 37.2; O2SAT 98
[2022-03-20 20:08] LABS: UTC Strep Screen (Rapid) Negative (Negative)
--- NOTE | 2022-03-20 20:09 | EXP.UTC ---
Discharge Plan Disposition Patient Disposition: Home, Self-Care Condition: Good Prescriptions Prescriptions: New cefdinir 300 mg capsule 300 mg PO BID 7 Days Qty: 14 0RF gentamicin 0.3 % drops 1 - 2 drp ophthalmic (eye) Q4H Qty: 5 0RF Rx Instructions: apply to left eye as directed No Action PNV,calcium 72-iron,carb-folic 29 mg iron- 1 mg tablet 1 tab PO DAILY Qty: 30 8RF Flovent HFA 110 mcg/actuation HFA aerosol inhaler 1 puff IH DAILY Label Comments: INHALE 1 PUFF BY MOUTH TWICE DAILY. USE regularly, RINSE MOUTH AFTER each USE. cetirizine 10 mg tablet 10 mg PO DAILY phentermine 37.5 mg tablet 37.5 mg PO DAILY Qty: 30 0RF Rx Instructions: must administer 30 minutes before or 1-2 hours after breakfast metronidazole 500 mg tablet 500 mg PO BID Qty: 14 0RF buspirone 5 MG tablet 5 mg PO BID Referrals Follow up/Referrals: Cait Bourne PA [Primary Care Provider] - See instructions Activity Restrictions/Add. Instructions Additional Instructions/Restrictions: *Monitor Temp, Over the counter Motrin or Tylenol as directed/as needed Tylenol every 4 hours and Motrin every 6 hours (as long as your family doctor has told you that you can take it) for fever or pain. and straight to ER if unable to lower temp less than 101.0 after medication given *Warm salt water gargles may help to soothe the throat *Throat Lozenges? *Warm fluids like tea with honey may help to soothe the throat? *Sleep elevated *Humidifier/Vaporizer Your throat swab was sent for culture. Those results are typically sent to your primary care. Be sure to follow up in 2-3 days with your family doctor/primary care physician if no improvement so they can review those result and treat if necessary. If you don?t have a primary care doctor, I recommend you get one but in the mean time, you will have to return to a walk in clinic Follow up IMMEDIATELY for new or worsening symptoms or no Noticeable improvement over the next 48-72 hours. 911 for difficulty breathing or swallowing You were tested for today for COVID19 your test result should be back in the next 24-48 hours, you check your results on the [facility] My Health Portal Make sure to take your Vitamins Vit. C Vit D and Zinc if you can take them Clinical Impressions Clinical Impression: Conjunctivitis, URI (upper respiratory infection) Instructions Patient Instructions: Sore Throat, Conjunctivitis Discharge ED Provider: Peri Mckee [facility] HPI General Stated complaint: sore threoat, soa, VA, congestion Mode of Arrival: Ambulatory Source of Information: Patient Limitations: No Limitations Time Seen by Provider: 03/20/22 20:09 Description of Symptoms (Recalled from Triage Doc. by RN): PATIET C/O SORE THROAT, COUGH, FATIGUE, AND LIGHT-HEADED X 1 WEEK HEENT Symptoms (Recalled from RN notes): Yes Resp Symptoms (Recalled from RN notes): Yes Skin Symptoms (Recalled from RN notes): No MS Symptoms (Recalled from RN notes): No Functional Status (Recalled from RN notes): WNL History of Present Illness Provider Complaint: Patient states that she is 8 weeks OB has been having sore throat, cough, sinus congestion and pressure, fatigue and chills since Friday States that she feels like she has strep throat States that also she has been around her neice and her daughters that has pink eye and today her left eye started feeling irritated, red and drainage from the eye Denies vision trouble States that she has tried several OTC medications that is safe during but nothing has helped Related Data Home Medications Medication Instructions Recorded Confirmed cetirizine 10 mg tablet 10 mg PO DAILY Allergy symptoms 03/06/21 03/05/22 fluticasone propionate 110 1 puff inhalation DAILY Asthma 03/06/21 03/05/22 mcg/actuation HFA aerosol inhaler (Flovent HFA) buspirone 5 mg tablet 5 mg PO BID Anxiety 02/21/22 03/05/22
[2022-03-20 21:16] LABS: Adenovirus,PCR Not Detected (NotDetected); Bordetella Pertussis Not Detected (NotDetected); Chlamydophila Pneumoniae, PCR Not Detected (NotDetected); Coronavirus 229E Not Detected (NotDetected); Coronavirus NL63 Not Detected (NotDetected); Coronavirus OC43 Not Detected (NotDetected); Coronovirus HKU1,PCR Not Detected (NotDetected); Human Metapneumovirus Not Detected (NotDetected); Influenza A, PCR Not Detected (NotDetected); Influenza AH1, 2009 Not Detected (NotDetected); Influenza AH1, PCR Not Detected (NotDetected); Influenza AH3,PCR Not Detected (NotDetected); Influenza B, PCR Not Detected (NotDetected); Mycoplasma Pneumoniae, PCR Not Detected (NotDetected); Parainfluenza 1, PCR Not Detected (NotDetected); Parainfluenza 2, PCR Not Detected (NotDetected); Parainfluenza 3, PCR Not Detected (NotDetected); Parainfluenza 4, PCR Not Detected (NotDetected); Respiratory Syncytial Virus Not Detected (NotDetected); Rhinovirus/Enterovirus Not Detected (NotDetected)
== END 2022-03-20 20:38 | disposition home or self-care (01) ==
PROVIDERS: Emergency Provider Nurse Practitioner; PCP Physician Assistant
DX: H10.9 Unspecified conjunctivitis (principal); J06.9 Acute upper respiratory infection, unspecified
CPT/HCPCS: 87486; 87581; 87632; 87798; 87880; 99212; C9803; G0463; U0003; U0005

== ENCOUNTER → 2022-05-10 12:19 | Outpatient (CLI) | payer OTHER, SELFPAY ==
[2022-05-10 13:13] LABS: Basophils % 0.4 % (0.1-2.0); Eosinophils # 0.2 K/mm3 (0.0-0.4); Eosinophils % 2.2 % (0.1-12.0); Hematocrit 35.1 % (37.0-47.0); Hemoglobin 11.6 g/dL (12.2-16.2); Lymphocytes # 1.9 K/mm3 (0.7-4.5); Lymphocytes % 21.4 % (10-50); Mean Corpuscular HGB Conc 33.1 g/dL (31.8-35.4); Mean Corpuscular Hemoglobin 30.9 pg (27.0-31.2); Mean Corpuscular Volume 93.6 fl (81-99); Mean Platelet Volume 8.6 fl (7.4-10.4); Monocytes # 0.3 K/mm3 (0.1-1.0); Neutrophils # 6.3 K/mm3 (1.8-7.8); Neutrophils % 72.1 % (37.0-80.0); Platelet Count 312 K/mm3 (142-424); Red Blood Count 3.75 M/mm3 (4.20-5.40); Red Cell Distribution Width 12.4 % (11.5-17.5); White Blood Count 8.7 K/mm3 (4.8-10.8)
[2022-05-12 08:10] LABS: HIV Screen 4th Generation wRfx Non Reactive (Non Reactive); Hepatitis B Surface Antigen Negative (Negative); Hepatitis C Antibody <0.1 s/co ratio (0.0-0.9); Rubella Antibodies, IgG 4.64 index (Immune >0.99)
[2022-05-12 09:12] LABS: Rapid Plasma Reagin Ab Titer Non Reactive (NonRea<1:1)
== END ==
PROVIDERS: PCP Physician Assistant; Visit Provider Nurse Practitioner Obstetrics & Gynecology
DX: Z34.90 Encounter for supervision of normal pregnancy, unspecified, unspecified trimester (principal)
CPT/HCPCS: 36415; 85025; 86592; 86703; 86762; 86850; 87340; 87380; G0432

== ENCOUNTER 2022-05-26 12:24 | Emergency (ER) | payer OTHER, SELFPAY ==
[2022-05-26 12:25] VITALS: BP 108/58; PULSE 88; RESP 16; TEMP 36.6; O2SAT 100; BMI 26.9
--- NOTE | 2022-05-26 12:45 | PC.NURSE ---
ORTHOSTATIC LYING 109/56 SITTING 108/58 STANDING 99/55
[2022-05-26 13:00] VITALS: BP 94/62; PULSE 77; RESP 18; O2SAT 100
--- NOTE | 2022-05-26 13:06 | PC.NURSE ---
ED MD AT BEDSIDE TO EVALUATE PT
--- NOTE | 2022-05-26 13:21 | PC.NURSE ---
PT ASSISTED TO BR TO COLLECT URINE SPECIMEN
[2022-05-26 13:30] VITALS: BP 102/58; PULSE 77; RESP 18; O2SAT 100
[2022-05-26 13:36] LABS: Microscopic, Urine URINE MICROSCOPIC (MICROSCOPIC)
[2022-05-26 13:37] LABS: Appearance,Urine CLOUDY (Clear); Bilirubin,Urine Negative (Negative); Blood, Urine Negative (Negative); Color,Urine YELLOW (Yellow); Glucose,Urine (UA) Negative (Negative); Ketones,Urine Negative (Negative); Leukocyte Esterase,Urine Negative (Negative); Nitrate,Urine Negative (Negative); PH,Urine 7.5 (5.0-8.5); Protein,Urine Negative (Negative); Specific Gravity, Urine 1.015 (1.005-1.030); Urobilinogen,Urine 0.2 EU/dl (0.2)
[2022-05-26 13:41] LABS: Basophils # 0.1 K/mm3 (0-0.2); Basophils % 0.4 % (0.1-2.0); Eosinophils # 0.3 K/mm3 (0.0-0.4); Eosinophils % 2.2 % (0.1-12.0); Hematocrit 34.9 % (37.0-47.0); Hemoglobin 11.9 g/dL (12.2-16.2); Lymphocytes # 1.9 K/mm3 (0.7-4.5); Lymphocytes % 17.3 % (10-50); Mean Corpuscular HGB Conc 34.1 g/dL (31.8-35.4); Mean Platelet Volume 8.7 fl (7.4-10.4); Monocytes # 0.4 K/mm3 (0.1-1.0); Monocytes % 3.3 % (1.7-9.3); Neutrophils # 8.5 K/mm3 (1.8-7.8); Neutrophils % 76.8 % (37.0-80.0); Platelet Count 304 K/mm3 (142-424); Red Blood Count 3.71 M/mm3 (4.20-5.40); White Blood Count 11.1 K/mm3 (4.8-10.8)
[2022-05-26 13:50] LABS: Bacteria,Urine Trace /lpf; Squamous Epithelial Cell,Urine 20-50 #/hpf (0-5)
[2022-05-26 13:52] LABS: Chloride 102 mmol/L (98-107); Sodium 137 mmol/L (136-145)
[2022-05-26 13:53] LABS: Potassium 3.7 mmoL/L (3.5-5.1)
[2022-05-26 13:55] LABS: Alanine Aminotransferase 24 U/L (12-78); Albumin Level 3.8 g/dl (3.5-5.0); Albumin/Globulin Ratio 1.4 (1.1-1.8); Alkaline Phosphatase 59 U/L (38-126); Anion Gap 10.7 mEq/L (5-15); Aspartate Amino Transferase 33 U/L (14-36); Bilirubin,Total 0.3 mg/dl (0.2-1.3); Blood Urea Nitrogen 6 mg/dl (7-17); Calcium 9.1 mg/dl (8.4-10.2); Carbon Dioxide 28 mmol/L (22.0-30.0); Creatinine Clearance Estimated 182 mL/min (50-200); Estimated Glomerular Filt Rate 147 ml/min (>60); GFR (African American) 178 ML/MIN (>60); Globulin 2.7 g/dL (1.3-3.2); Glucose 73 mg/dl (74-100); Magnesium 1.9 mg/dl (1.6-2.3); Total Protein,Serum 6.5 g/dl (6.3-8.2)
--- NOTE | 2022-05-26 13:59 | HMH.EDGENADL ---
Discharge Plan Disposition Patient Disposition: Home, Self-Care Condition: Good Prescriptions Prescriptions: No Action PNV,calcium 72-iron,carb-folic 29 mg iron- 1 mg tablet 1 tab PO DAILY Qty: 30 8RF Flovent HFA 110 mcg/actuation HFA aerosol inhaler 1 puff IH DAILY Label Comments: INHALE 1 PUFF BY MOUTH TWICE DAILY. USE regularly, RINSE MOUTH AFTER each USE. cetirizine 10 mg tablet 10 mg PO DAILY ondansetron 4 mg tablet,disintegrating 4 mg PO Q4H PRN (Reason: nausea and vomiting) Qty: 30 4RF promethazine 12.5 mg tablet 12.5 mg PO Q6H PRN (Reason: nausea and vomiting) Qty: 30 1RF Referrals Follow up/Referrals: Cait Bourne PA [Primary Care Provider] - See instructions Activity Restrictions/Add. Instructions Additional Instructions/Restrictions: You were evaluated in the emergency department today. At this time, your labs are reassuring. Please follow-up with your primary care provider over the next 48 hours. Follow-up outpatient with your MARKETING AGENT as well. Patient that she stay orally hydrated. Return to the emergency department for any new or worsening symptoms. Clinical Impressions Clinical Impression: Lightheadedness Instructions Patient Instructions: Dizziness, Nonvertigo Discharge ED Provider: Yolande Olson General Adult HPI General Chief complaint: Dizziness Stated complaint: Dizzy, hotflashes Time Seen by Provider: 05/26/22 12:33 Mode of Arrival: Ambulatory Limitations: No Limitations Description of Symptoms (Recalled from ER Triage Doc. by RN): PT REPORTS INTERMITTENT DIZZINESS FOR ABOUT 2 WEEKS, WORSE TODAY. IS 18 WEEKS History of Present Illness HPI narrative: This patient is a 26-year-old female who is 18 weeks presented to the emergency department for evaluation of dizziness. She states that she has a history of vertigo, this felt similar to prior episodes of vertigo. She states that it has been going on for 2 weeks, but is worse today. She denies any other concerns, such as fever, chills, chest pain, shortness of breath, abdominal pain, nausea, vomiting, changes in bowel movements, dysuria, abnormal vaginal discharge, bleeding, unilateral weakness, numbness, tingling, or other concerns. Related Data Home Medications Medication Instructions Recorded Confirmed cetirizine 10 mg tablet 10 mg PO DAILY Allergy symptoms 03/06/21 05/15/22 fluticasone propionate 110 1 puff inhalation DAILY Asthma 03/06/21 05/15/22 mcg/actuation HFA aerosol inhaler (Flovent HFA) Previous Rx's Medication Instructions Recorded vitamins with calcium 1 tab PO DAILY #30 tabs 02/27/22 no.72-iron 29 mg-folic acid 1 mg tablet promethazine 12.5 mg tablet 12.5 mg PO Q6H PRN nausea and 03/22/22 vomiting #30 tabs ondansetron 4 mg disintegrating 4 mg PO Q4H PRN nausea and 04/15/22 tablet vomiting #30 tabs Allergies Allergy/AdvReac Type Severity Reaction Status Date / Time metoclopramide [From REGLAN] Allergy Mild Verified 05/15/22 15:22 montelukast [From SINGULAIR] Allergy Mild Verified 05/15/22 15:22 hydrocodone AdvReac Verified 05/15/22 15:22 PFSH PFSH Medical History Anxiety Anxiety Asthma Depression Migraine Surgical History History of breast augmentation History of section History of cholecystectomy History of dilatation and curettage History of foot surgery History of wisdom tooth extraction Family History Other No significant family history Social History Smoking Status: Former smoker pack-years: 5 second hand exposure: No alcohol intake: never substance use type: denies use current occupational status: other Travel in the last 8 weeks: None household members: significant
[2022-05-26 14:00] VITALS: BP 99/57; PULSE 76; RESP 18; O2SAT 100
[2022-05-26 14:30] VITALS: BP 101/56; PULSE 74; O2SAT 99
[2022-05-26 14:30] LABS: Coronavirus 19, PCR Not Detected (NotDetected); Influenza A, PCR Not Detected (NotDetected); Influenza B, PCR Not Detected (NotDetected)
--- NOTE | 2022-05-26 14:33 | ECG_ITS ---
APPROVED REPORT Exam: Resting ECG HR:66 bpm ECG Measurements Heart Rate 66 AXES IA 131 P 52 QRSd 84 QRS 59 QT 411 T 45 QTc 425 Conclusion SINUS RHYTHM NORMAL ECG UNCONFIRMED REPORT Electronically signed by : Manjit Andres MD 05/26/2022 17:11:48
--- NOTE | 2022-05-26 15:01 | PC.NURSE ---
ROUNDED ON PT, MEDICATED PER EMAR. NO NEEDS AT THIS TIME. FAMILY AT BEDSIDE
[2022-05-26 15:50] VITALS: BP 104/60; PULSE 76; RESP 16; TEMP 36.6; O2SAT 99
== END 2022-05-26 15:50 | disposition home or self-care (01) ==
PROVIDERS: Emergency Provider Emergency Medicine; PCP Physician Assistant
DX: R42 Dizziness and giddiness (principal); Z79.51 Long term (current) use of inhaled steroids; Z79.899 Other long term (current) drug therapy; Z88.8 Allergy status to other drugs, medicaments and biological substances; Z88.6 Allergy status to analgesic agent; F41.9 Anxiety disorder, unspecified; J45.909 Unspecified asthma, uncomplicated; F32.A Depression, unspecified; G43.909 Migraine, unspecified, not intractable, without status migrainosus
CPT/HCPCS: 80053; 81001; 83735; 85025; 93005; 96365; 99284; C9803; U0003; U0005

== ENCOUNTER → 2022-06-10 13:37 | Outpatient (CLI) | payer OTHER, SELFPAY ==
--- NOTE | 2022-06-10 13:37 | US_ITS ---
FINAL REPORT CLINICAL HISTORY: 20 week anatomy scan FINDINGS: There is a single live intrauterine gestation. Presentation is cephalic. The cervix is closed and measures 6.2 cm. Placenta is posterior, grade 1. movement is noted. Heart rate measured at 150 beats per minute. Three-vessel cord with satisfactory umbilical cord insertion. Four-chamber heart is noted. brain and ventricles are unremarkable. Chest and diaphragm are unremarkable. ABDOMEN: Both kidneys are unremarkable. Stomach is unremarkable. SPINE: No anomalies identified. Both arms and legs noted. AMNIOTIC FLUID: Appropriate amount. MEASUREMENTS: ULTRASOUND AGE: 20 weeks 2 days. GESTATION AGE: 20 weeks 3 days. ESTIMATED WEIGHT: 347 g GROWTH PERCENTILE: 40% LMP percentile BPD: 4.8 cm corresponding with 20 weeks 3 days. OFD: 5.9 cm corresponding with 20 weeks 2 days. HC: 16.8 cm corresponding with 19 weeks 4 days. AC: 14.9 cm corresponding with 20 weeks 2 days. FL: 3.4 cm corresponding with 20 weeks 6 days. CEREBELLUM: 2 cm corresponding with 20 weeks 2 days. HUMERUS: 3.1 cm corresponding with 20 weeks 2 days. HC/AC: 1.13 CI: 81% FL/BPD: 72% FL/AC: 23% IMPRESSION: Single living IUP with an ultrasound age of 20 weeks 2 days. No gross anomalies noted. Reviewed, Interpreted and Dictated by Mateusz Carlos MD Transcribed by Kelsey Montiel Authenticated and [facility]
== END ==
PROVIDERS: PCP Physician Assistant; Visit Provider Nurse Practitioner Obstetrics & Gynecology
DX: Z34.90 Encounter for supervision of normal pregnancy, unspecified, unspecified trimester (principal); Z3A.20 20 weeks gestation of pregnancy
CPT/HCPCS: 76811

== ENCOUNTER → 2022-07-25 08:14 | Outpatient (CLI) | payer OTHER, SELFPAY ==
[2022-07-25 08:37] LABS: Basophils # 0.1 K/mm3 (0-0.2); Basophils % 0.6 % (0.1-2.0); Eosinophils # 0.3 K/mm3 (0.0-0.4); Eosinophils % 2.7 % (0.1-12.0); Hematocrit 36.7 % (37.0-47.0); Hemoglobin 11.6 g/dL (12.2-16.2); Lymphocytes % 16.5 % (10-50); Mean Corpuscular HGB Conc 31.7 g/dL (31.8-35.4); Mean Corpuscular Hemoglobin 31.4 pg (27.0-31.2); Mean Corpuscular Volume 99.3 fl (81-99); Mean Platelet Volume 8.7 fl (7.4-10.4); Monocytes # 0.4 K/mm3 (0.1-1.0); Monocytes % 3.7 % (1.7-9.3); Neutrophils % 76.5 % (37.0-80.0); Platelet Count 335 K/mm3 (142-424); Red Cell Distribution Width 13.1 % (11.5-17.5); White Blood Count 11.8 K/mm3 (4.8-10.8)
[2022-07-25 08:54] LABS: Glucose,Fasting 79 mg/dl (74-100)
[2022-07-25 10:39] LABS: Glucose 1 Hour 108 mg/dL (74-100)
== END ==
PROVIDERS: PCP Physician Assistant; Visit Provider Nurse Practitioner Obstetrics & Gynecology
DX: Z34.90 Encounter for supervision of normal pregnancy, unspecified, unspecified trimester (principal)
CPT/HCPCS: 36415; 82951; 85025

== ENCOUNTER 2022-08-27 18:47 | Outpatient (CLI) | payer OTHER, SELFPAY ==
[2022-08-27 19:05] VITALS: BP 104/65; PULSE 76; RESP 18; TEMP 37; O2SAT 100
[2022-08-27 19:24] VITALS: BMI 30.1
[2022-08-27 19:36] VITALS: BP 104/65; PULSE 76; RESP 18; TEMP 37; O2SAT 100; BMI 30.1
[2022-08-27 20:14] LABS: Microscopic, Urine URINE MICROSCOPIC (MICROSCOPIC)
[2022-08-27 20:15] LABS: Appearance,Urine CLEAR (Clear); Bilirubin,Urine Negative (Negative); Blood, Urine Negative (Negative); Color,Urine YELLOW (Yellow); Glucose,Urine (UA) Negative (Negative); Ketones,Urine Negative (Negative); Leukocyte Esterase,Urine 3+ (Negative); Nitrate,Urine Negative (Negative); PH,Urine 6.5 (5.0-8.5); Protein,Urine Negative (Negative); Urobilinogen,Urine 0.2 EU/dl (0.2)
[2022-08-27 20:23] LABS: Bacteria,Urine 1+ /lpf; RBC,Urine Occasional #/hpf (0-3)
[2022-08-27 20:34] LABS: Amphetamine/Metha Screen,Urine Negative ng/ml (<1000); Barbiturates Screen,Urine Negative ng/ml (<200); Benzodiazepines Screen,Urine Negative ng/ml (<200); Cannabinoid Screen,Urine Negative ng/ml (<50); Cocaine Screen,Urine Negative ng/ml (<300); Methadone Screen,Urine Negative ng/ml (<300); Opiate Screen,Urine Negative ng/ml (<300); Phencyclidine Screen,Urine Negative ng/ml (<25)
== END 2022-08-27 20:55 | disposition home or self-care (01) ==
LOC: OBOUT 19:09 → OB 19:10
PROVIDERS: PCP Physician Assistant; Visit Provider Obstetrics & Gynecology
DX: O26.893 Other specified pregnancy related conditions, third trimester (principal); Z3A.31 31 weeks gestation of pregnancy; R10.30 Lower abdominal pain, unspecified; M54.50 Low back pain, unspecified
CPT/HCPCS: 59025; 80305; 81001; 87086; G0463; J0696

== ENCOUNTER 2022-09-05 14:17 | Outpatient (CLI) | payer OTHER, SELFPAY ==
[2022-09-05 14:42] VITALS: BP 116/74; PULSE 96; RESP 16; TEMP 36.9; O2SAT 100; BMI 30.9
[2022-09-05 15:00] VITALS: BP 131/78; PULSE 108
[2022-09-05 15:15] VITALS: BP 118/74; PULSE 91
[2022-09-05 15:17] LABS: Microscopic, Urine URINE MICROSCOPIC (MICROSCOPIC)
[2022-09-05 15:22] LABS: Appearance,Urine CLEAR (Clear); Bilirubin,Urine Negative (Negative); Blood, Urine Negative (Negative); Color,Urine YELLOW (Yellow); Glucose,Urine (UA) Negative (Negative); Ketones,Urine Negative (Negative); Leukocyte Esterase,Urine TRACE (Negative); Nitrate,Urine Negative (Negative); Protein,Urine Negative (Negative); Urobilinogen,Urine 0.2 EU/dl (0.2)
[2022-09-05 15:34] LABS: Barbiturates Screen,Urine Negative ng/ml (<200)
[2022-09-05 15:35] LABS: Amphetamine/Metha Screen,Urine Negative ng/ml (<1000); Benzodiazepines Screen,Urine Negative ng/ml (<200)
[2022-09-05 15:36] LABS: Cocaine Screen,Urine Negative ng/ml (<300)
[2022-09-05 15:37] LABS: Cannabinoid Screen,Urine Negative ng/ml (<50); Methadone Screen,Urine Negative ng/ml (<300)
[2022-09-05 15:38] VITALS: BP 115/74; PULSE 88
[2022-09-05 15:38] LABS: Opiate Screen,Urine Negative ng/ml (<300)
[2022-09-05 15:39] LABS: Phencyclidine Screen,Urine Negative ng/ml (<25)
[2022-09-05 15:47] LABS: Bacteria,Urine Trace /lpf; WBC,Urine Occasional #/hpf (0-3)
--- NOTE | 2022-09-05 17:02 | EXP.ACUTE.PN ---
Subjective *Date: 09/05/22 *Time: 17:02 Interval history: She came into labor and delivery with increased swelling in her feet. She works from home and sits at a desk. She says that she occasionally puts her feet up. She also complains of some random heart racing. She says that she feels lightheaded when this happens. She says it happens at least 10 times a day. Blood pressure is normal. Medical Exam Vital signs and Labs for Last 24 Hours: Vital Signs Temp Pulse Resp BP Pulse Ox 09/05/22 15:15 91 H 118/74 09/05/22 15:38 88 115/74 09/05/22 15:00 108 H 131/78 09/05/22 14:42 98.4 F 96 H 16 116/74 100 Intake and Output 09/05/22 09/05/22 09/05/22 03:59 11:59 19:59 Other: Weight 175 lb 0.012 oz Patient Weight 09/06/22 11:59 Weight 175 lb 0.012 oz Laboratory Results - last 24 hr 09/05/22 14:25: Urine Color Yellow, Urine Appearance Clear, Urine pH 7.0, Ur Specific [place] 1.010, Urine Protein Negative, Urine Glucose (UA) Negative, Urine Ketones Negative, Urine Blood Negative, Urine Nitrate Negative, Urine Bilirubin Negative, Urine Urobilinogen 0.2, Ur Leukocyte Esterase Trace, Urine RBC None, Urine WBC Occasional, Ur Squamous Epith Cells 10-20, Urine Bacteria Trace 09/05/22 14:25: Urine Opiates Screen Negative, Urine Methadone Screen Negative, Ur Barbituates Screen Negative, Ur Phencyclidine Scrn Negative, Ur Amphetamines Screen Negative, U Benzodiazepines Scrn Negative, Urine Cocaine Screen Negative, U Marijuana (THC) Screen Negative I & O for Labs for Last 24 Hours: Intake & Output 09/03/22 09/04/22 09/05/22 09/06/22 11:59 11:59 11:59 11:59 Weight 175 lb 0.012 oz Head: Present atraumatic ENT: Present normal exam Neck: Present normal inspection Respiratory: Present normal respiratory effort; Absent accessory muscle use Cardiac: Present Reg Rate and Rhythm GI: Present soft; Absent distention or tenderness (female): Present deferred Assessment and Plan *Assessment and plan (1) Lightheadedness: Status: Acute Category: Medical Code(s): R42 - Dizziness and giddiness (2) : Status: Acute Qualifiers: Weeks of gestation: 32 weeks Qualified Code(s): Z3A.32 - 32 weeks gestation of Category: Medical Code(s): Z34.90 - Encounter for supervision of normal , unspecified, unspecified trimester (3) Edema of both feet: Status: Acute Category: Medical Code(s): R60.0 - Localized edema Plan Since she has an intermittent racing heart we will go ahead and start labetalol 50 mg twice daily. She was to see me in 2 weeks time but we will go ahead and make an appointment for her next week. I told her to keep her feet up.
== END 2022-09-05 17:11 | disposition home or self-care (01) ==
LOC: OBOUT 14:19 → OB 14:19
PROVIDERS: PCP Physician Assistant; Visit Provider Nurse Practitioner Obstetrics & Gynecology
DX: O26.893 Other specified pregnancy related conditions, third trimester (principal); Z3A.32 32 weeks gestation of pregnancy; R42 Dizziness and giddiness; R60.0 Localized edema
CPT/HCPCS: 59025; 80305; 81001; G0463

== ENCOUNTER 2022-09-11 18:07 | Outpatient (CLI) | payer OTHER, SELFPAY ==
[2022-09-11 18:28] VITALS: BMI 30.6
[2022-09-11 18:30] VITALS: BP 123/71; PULSE 97; RESP 18; TEMP 36.7; O2SAT 100; BMI 30.6
[2022-09-11 18:42] LABS: Microscopic, Urine URINE MICROSCOPIC (MICROSCOPIC)
[2022-09-11 19:10] LABS: Appearance,Urine CLEAR (Clear); Bilirubin,Urine Negative (Negative); Blood, Urine Negative (Negative); Color,Urine YELLOW (Yellow); Glucose,Urine (UA) Negative (Negative); Ketones,Urine Negative (Negative); Leukocyte Esterase,Urine Negative (Negative); Nitrate,Urine Negative (Negative); Protein,Urine Negative (Negative); Specific Gravity, Urine 1.015 (1.005-1.030); Urobilinogen,Urine 0.2 EU/dl (0.2)
[2022-09-11 19:25] LABS: Benzodiazepines Screen,Urine Negative ng/ml (<200)
[2022-09-11 19:26] LABS: Amphetamine/Metha Screen,Urine Negative ng/ml (<1000)
[2022-09-11 19:27] LABS: Barbiturates Screen,Urine Negative ng/ml (<200); Cannabinoid Screen,Urine Negative ng/ml (<50)
[2022-09-11 19:28] LABS: Cocaine Screen,Urine Negative ng/ml (<300)
[2022-09-11 19:29] LABS: Methadone Screen,Urine Negative ng/ml (<300); Opiate Screen,Urine Negative ng/ml (<300)
[2022-09-11 19:30] LABS: Phencyclidine Screen,Urine Negative ng/ml (<25)
[2022-09-11 20:16] LABS: Bacteria,Urine Trace /lpf; Mucus,Urine Trace /lpf; RBC,Urine Occasional #/hpf (0-3); Squamous Epithelial Cell,Urine 50-100 #/hpf (0-5); WBC,Urine Occasional #/hpf (0-3)
== END 2022-09-11 19:06 | disposition home or self-care (01) ==
LOC: OBOUT 18:09 → OB 18:10
PROVIDERS: PCP Physician Assistant; Referring Provider Nurse Practitioner Obstetrics & Gynecology; Visit Provider Obstetrics & Gynecology
DX: O47.03 False labor before 37 completed weeks of gestation, third trimester (principal); Z3A.33 33 weeks gestation of pregnancy
CPT/HCPCS: 59025; 80305; 81001; G0463

== ENCOUNTER 2022-09-20 08:55 | Outpatient (CLI) | payer OTHER, SELFPAY ==
[2022-09-20 09:05] VITALS: BMI 30.7
[2022-09-20 09:11] VITALS: BP 111/66; PULSE 84; RESP 13; TEMP 36.9; O2SAT 100
[2022-09-20 09:30] VITALS: PULSE 84; RESP 16; TEMP 36.9; O2SAT 100; BMI 30.6
[2022-09-20 09:30] LABS: Microscopic, Urine URINE MICROSCOPIC (MICROSCOPIC)
[2022-09-20 09:33] LABS: Appearance,Urine CLEAR (Clear); Bilirubin,Urine Negative (Negative); Blood, Urine Negative (Negative); Color,Urine YELLOW (Yellow); Glucose,Urine (UA) Negative (Negative); Ketones,Urine Negative (Negative); Leukocyte Esterase,Urine Negative (Negative); Nitrate,Urine Negative (Negative); Protein,Urine Negative (Negative); Specific Gravity, Urine <= 1.005 (1.005-1.030); Urobilinogen,Urine 0.2 EU/dl (0.2)
[2022-09-20 09:44] LABS: Amphetamine/Metha Screen,Urine Negative ng/ml (<1000); Benzodiazepines Screen,Urine Negative ng/ml (<200)
[2022-09-20 09:45] LABS: Bacteria,Urine Trace /lpf; Barbiturates Screen,Urine Negative ng/ml (<200); Squamous Epithelial Cell,Urine Occasional #/hpf (0-5)
[2022-09-20 09:46] LABS: Cannabinoid Screen,Urine Negative ng/ml (<50); Methadone Screen,Urine Negative ng/ml (<300)
[2022-09-20 09:47] LABS: Cocaine Screen,Urine Negative ng/ml (<300); Opiate Screen,Urine Negative ng/ml (<300)
[2022-09-20 09:48] LABS: Phencyclidine Screen,Urine Negative ng/ml (<25)
== END 2022-09-20 09:45 | disposition home or self-care (01) ==
LOC: OBOUT 08:56 → OB 08:57
PROVIDERS: PCP Physician Assistant; Visit Provider Obstetrics & Gynecology
DX: O36.8130 Decreased fetal movements, third trimester, not applicable or unspecified (principal); Z3A.34 34 weeks gestation of pregnancy
CPT/HCPCS: 59025; 80305; 81001; G0463

== ENCOUNTER → 2022-09-30 23:42 | Outpatient (CLI) | payer OTHER, SELFPAY | PROVIDERS: PCP Physician Assistant; Visit Provider Nurse Practitioner Obstetrics & Gynecology | DX: Z34.90 Encounter for supervision of normal pregnancy, unspecified, unspecified trimester (principal) | CPT/HCPCS: 86403 ==

== ENCOUNTER 2022-10-15 12:13 | Outpatient (CLI) | payer OTHER, SELFPAY ==
[2022-10-15 12:43] VITALS: BMI 31.1
[2022-10-15 12:46] VITALS: BP 114/68; PULSE 86; RESP 16; TEMP 37; O2SAT 98; BMI 31.1
[2022-10-15 12:50] LABS: Microscopic, Urine URINE MICROSCOPIC (MICROSCOPIC)
[2022-10-15 12:51] LABS: Appearance,Urine CLEAR (Clear); Bilirubin,Urine Negative (Negative); Blood, Urine Negative (Negative); Color,Urine YELLOW (Yellow); Glucose,Urine (UA) Negative (Negative); Ketones,Urine Negative (Negative); Leukocyte Esterase,Urine Negative (Negative); Nitrate,Urine Negative (Negative); Protein,Urine Negative (Negative); Specific Gravity, Urine <= 1.005 (1.005-1.030); Urobilinogen,Urine 0.2 EU/dl (0.2)
[2022-10-15 13:05] LABS: Barbiturates Screen,Urine Negative ng/ml (<200)
[2022-10-15 13:06] LABS: Benzodiazepines Screen,Urine Negative ng/ml (<200)
[2022-10-15 13:07] LABS: Amphetamine/Metha Screen,Urine Negative ng/ml (<1000); Methadone Screen,Urine Negative ng/ml (<300)
[2022-10-15 13:08] LABS: Cannabinoid Screen,Urine Negative ng/ml (<50); Cocaine Screen,Urine Negative ng/ml (<300)
[2022-10-15 13:09] LABS: Bacteria,Urine Trace /lpf; Opiate Screen,Urine Negative ng/ml (<300); Squamous Epithelial Cell,Urine Occasional #/hpf (0-5)
[2022-10-15 13:10] LABS: Phencyclidine Screen,Urine Negative ng/ml (<25)
== END 2022-10-15 13:43 | disposition home or self-care (01) ==
LOC: OBOUT 12:14 → OB 12:14
PROVIDERS: PCP Physician Assistant; Visit Provider Nurse Practitioner Obstetrics & Gynecology
DX: Z34.90 Encounter for supervision of normal pregnancy, unspecified, unspecified trimester (principal); Z3A.38 38 weeks gestation of pregnancy
CPT/HCPCS: 59025; 80305; 81001; 96365; G0463

== ENCOUNTER 2022-10-18 05:16 | Inpatient (IN) | payer OTHER, SELFPAY ==
[2022-10-18] VITALS (23 sets, daily range): BP systolic 106–147; BP diastolic 55–96; PULSE 72–88; RESP 13–20; TEMP 36.2–43; O2SAT 98–100; BMI 31.2
[2022-10-18 05:57] LABS: Coronavirus 19, PCR Not Detected (NotDetected); Influenza A, PCR Not Detected (NotDetected); Influenza B, PCR Not Detected (NotDetected)
[2022-10-18 05:57] LABS: Microscopic, Urine URINE MICROSCOPIC (MICROSCOPIC)
[2022-10-18 06:06] LABS: Basophils % 0.3 % (0.1-2.0); Eosinophils # 0.3 K/mm3 (0.0-0.4); Eosinophils % 2.2 % (0.1-12.0); Hematocrit 38.1 % (37.0-47.0); Hemoglobin 12.4 g/dL (12.2-16.2); Lymphocytes # 2.7 K/mm3 (0.7-4.5); Lymphocytes % 19.9 % (10-50); Mean Corpuscular HGB Conc 32.7 g/dL (31.8-35.4); Mean Corpuscular Hemoglobin 30.8 pg (27.0-31.2); Mean Corpuscular Volume 94.2 fl (81-99); Mean Platelet Volume 8.9 fl (7.4-10.4); Monocytes # 0.7 K/mm3 (0.1-1.0); Monocytes % 5.2 % (1.7-9.3); Neutrophils # 9.7 K/mm3 (1.8-7.8); Neutrophils % 72.4 % (37.0-80.0); Platelet Count 342 K/mm3 (142-424); Red Blood Count 4.04 M/mm3 (4.20-5.40); Red Cell Distribution Width 13.3 % (11.5-17.5); White Blood Count 13.3 K/mm3 (4.8-10.8)
[2022-10-18 06:10] LABS: Chloride 106 mmol/L (98-107); Potassium 3.7 mmoL/L (3.5-5.1); Sodium 134 mmol/L (136-145)
[2022-10-18 06:13] LABS: Anion Gap 11.7 mEq/L (5-15); Appearance,Urine SL CLOUDY (Clear); Bilirubin,Urine Negative (Negative); Blood Urea Nitrogen 6 mg/dl (7-17); Blood, Urine Negative (Negative); Calcium 8.4 mg/dl (8.4-10.2); Carbon Dioxide 20 mmol/L (22.0-30.0); Color,Urine YELLOW (Yellow); Creatinine Clearance Estimated 175 mL/min (50-200); Estimated Glomerular Filt Rate 118 ml/min (>60); GFR (African American) 143 ML/MIN (>60); Glucose 74 mg/dl (74-100); Glucose,Urine (UA) Negative (Negative); Ketones,Urine Negative (Negative); Leukocyte Esterase,Urine Negative (Negative); Nitrate,Urine Negative (Negative); PH,Urine 6.5 (5.0-8.5); Protein,Urine Negative (Negative); Urobilinogen,Urine 0.2 EU/dl (0.2)
[2022-10-18 06:32] LABS: Amphetamine/Metha Screen,Urine Negative ng/ml (<1000)
[2022-10-18 06:33] LABS: Barbiturates Screen,Urine Negative ng/ml (<200)
[2022-10-18 06:34] LABS: Benzodiazepines Screen,Urine Negative ng/ml (<200); Cannabinoid Screen,Urine Negative ng/ml (<50)
[2022-10-18 06:35] LABS: Cocaine Screen,Urine Negative ng/ml (<300); Methadone Screen,Urine Negative ng/ml (<300)
[2022-10-18 06:36] LABS: Opiate Screen,Urine Negative ng/ml (<300)
[2022-10-18 06:37] LABS: Phencyclidine Screen,Urine Negative ng/ml (<25)
[2022-10-18 06:49] LABS: Bacteria,Urine 4+ /lpf; RBC,Urine Occasional #/hpf (0-3)
--- NOTE | 2022-10-18 07:04 | EXP.OB.APHP ---
OB - H&P: HPI Antepartum History of Present Illness Chief complaint: Scheduled repeat History of present illness: Ms Keyla De La Cruz is a 27 yo at 39w0d who presents to [facility] for scheduled repeat . History of x 2. She has had good care. Baby is active. History of Present Criteria for establishing EDC:: based on 1st trimester US only care: good care Ultrasounds: normal mid trimester US Obstetrical complications: previous (x 2) Medical complications: none Labs Blood type: AB (+) positive Rubella: immune RPR/VDRL: nonreactive GBS status: negative HBsAG: negative PFSH PFS Disclaimer: The information contained in this section may have been updated after the patient was seen, as this information can be updated by other users. Medical History (Updated 10/18/22 @ 07:10 by Ariadne Sharp DO) Anxiety Asthma Depression Migraine with 39 completed weeks gestation Surgical History History of breast augmentation History of section History of cholecystectomy History of dilatation and curettage History of foot surgery History of wisdom tooth extraction Family History Other No significant family history Social History Smoking Status: Former smoker pack-years: 5 second hand exposure: No alcohol intake: never substance use type: denies use current occupational status: employed Travel in the last 8 weeks: None household members: significant other and children housing: house number of children: 2 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/hazards: No caffeine: Yes Review of Systems Review of Systems Review of systems:: pertinent systems reviewed and negative unless documented below Meds Home Medications and Allergies Home Medications Medication Instructions Recorded Confirmed Type cetirizine 10 mg tablet 10 mg PO DAILY Allergy symptoms 03/06/21 10/15/22 History fluticasone propionate 110 1 puff inhalation DAILY Asthma 03/06/21 10/15/22 History mcg/actuation HFA aerosol inhaler (Flovent HFA) promethazine 12.5 mg tablet 12.5 mg PO Q6H PRN nausea and 03/22/22 10/15/22 Rx vomiting #30 tabs bupropion HCl 150 mg 24 hr tablet, 150 mg PO DAILY Depression 09/05/22 10/15/22 History extended release (Wellbutrin XL) ferrous sulfate 325 mg (65 mg 325 mg PO DAILY Diet supplement 09/05/22 10/15/22 History iron) tablet,delayed release vitamins with calcium 1 tab PO DAILY Diet supplement 09/05/22 10/15/22 History no.72-iron 29 mg-folic acid 1 mg tablet ondansetron 4 mg disintegrating See Rx Instructions .Route 09/30/22 10/15/22 Rx tablet .COMPLEX #30 tabs New Prescriptions to Start Prescriptions: Allergies Allergy/AdvReac Type Severity Reaction Status Date / Time metoclopramide [From REGLAN] Allergy Mild Verified 10/15/22 11:05 montelukast [From SINGULAIR] Allergy Mild Verified 10/15/22 11:05 hydrocodone AdvReac Verified 10/15/22 11:05 OB - H&P: Exam Physical Exam Vital signs: Temp Pulse Resp BP Pulse Ox 98.0 F 84 19 106/59 L 98 10/18/22 06:27 10/18/22 06:27 10/18/22 06:27 10/18/22 06:27 10/18/22 06:27 Constitutional no acute distress Routine HEENT Exam Head: Present normocephalic and atraumatic Eye: Absent conjunctivae pink ENT: Present mucous membranes moist Routine Neck Exam Present full ROM Routine Respiratory Exam Present CTA bilaterally and normal respiratory effort Routine Cardiovascular Exam Present RRR Routine Abdominal Exam Present soft (Gravid); Absent tenderness Routine Rectal Exam Patient deferred: visual exam Routine Exam Patient deferred: external exam Routine Extremities Exam Present full ROM; Absent edema or calf tenderne
[2022-10-18 08:17] LABS: Cord Blood PH 7.41 (7.35-7.45)
--- NOTE | 2022-10-18 09:17 | P.PN_ITS ---
[facility] Disclaimer: The information contained in this section may have been updated after the patient was seen, as this information can be updated by other users. Medical History (Updated 10/18/22 @ 07:10 by Ariadne Sharp DO) Anxiety Asthma Depression Migraine with 39 completed weeks gestation Surgical History History of breast augmentation History of section History of cholecystectomy History of dilatation and curettage History of foot surgery History of wisdom tooth extraction Family History Other No significant family history Social History Smoking Status: Former smoker pack-years: 5 second hand exposure: No alcohol intake: never substance use type: denies use current occupational status: employed Travel in the last 8 weeks: None household members: significant other and children housing: house number of children: 2 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/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: No caffeine: Yes [facility] Anesthesia Checklist Patient Identification Patient Identification: Arm Band and Verbal (Name & ) Structural Data Admitted From: Home Planned Operative Procedure/s: Consent for Planned Operative Procedure(s) Verified: Yes Verified Documents: Surgical Consent NPO Status Verified Time NPO: 00:00 Chart Verification Results Verified: CBC Additional verifications Anesthesia Reactions: No Hx Blood Transfusions: No Blood Transfusion Reaction: Yes Airway Assessment C-Spine Mobility Assessed: Yes TMJ Mobility Assessed: Yes Dentition: Good Dentition Neurological Assessment Level of Consciousness: Awake, Alert and Appropriate Anesthesia Plan Anesthesia Risk discussed: Yes ASA Class: II Anesthesia Type: Spinal
--- NOTE | 2022-10-18 09:18 | EXP.ANES.I ---
[facility] Anesthesia Record Part I Anesthesia Record I Intake, IV Amount: 2,100 Estimated blood loss (mL): 600 Urine output (mL): 500 Blood Pressure: 146/81 SaO2: 100 Pulse Rate: 85 Respiratory Rate: 14 Temperature: 97.2 F Patient is:: Awake Stable to PACU at:: 09:16
--- NOTE | 2022-10-18 09:43 | EXP.OP.NOTE ---
Date of procedure: 10/18/22 Pre-op Diagnosis:: 1. IUP at 39w0d 2. History of x 2 3. Anxiety 4. Depression Post-op Diagnosis:: 1. IUP at 39w0d 2. History of x 2 3. Anxiety 4. Depression Procedure performed:: Repeat Low Transverse Section Surgeon:: Ariadne Sharp DO House Repairer(s):: CHARBEL Faustin GAME TESTER:: Micheal Germain Anesthesia: spinal Estimated blood loss (mL): 1,000 Clinical Note:: Ms Keyla De La Cruz is a 27 yo at 39w0d who presents to [facility] for scheduled repeat . History of? x 2. She has had good care. Operative findings:: 1. Live female baby (baby's name is Jose) weighing 6 lb 14 oz, APGARs 8, 9 2. Nuchal cord x 1 easily reduced 3. Grossly normal appearing uterus, bilateral fallopian tubes and ovaries Operative note:: The risks, benefits and alternatives of the procedure were reviewed with the patient. Informed consent was obtained. Patient was taken to the operating room where spinal anesthesia was placed. The patient received 2 grams of Ancef preoperatively. Patient was placed in dorsal supine position with a leftward tilt. SCDs in place. Boles catheter was inserted and draining clear urine prior to the start of the procedure. heart tones were obtained. Patient was then prepped and draped in normal sterile fashion. Allis clamp test was performed to ensure adequate anesthesia. A Pfannenstiel skin incision was made 2 cm above pubic symphysis. This was carried through to underlying layer of fascia. Fascia was incised in midline, extended laterally with Cr scissors. Superior aspect of fascial incision was grasped with two Gwen clamps, elevated up, and rectus muscle dissected off bluntly and sharply with Cr scissors. The retcus muscle was then in the midline and the peritoneum was entered bluntly with a digit. Peritoneal incision was then extended superiorly and inferiorly with good visualization of the bladder. Julio César retractor was inserted. The lower uterine segment was incised in a transverse fashion. Meconium stained amniotic fluid was noted. Head was delivered without difficulty. Nuchal x 1 was easily reduced. Remainder of body was delivered without difficulty. Mouth and nares were bulb suctioned. Spontaneous cry was noted. Delayed cord clamping was performed for 60 seconds. The umbilical cord was clamped and cut. The was handed to awaiting pediatric staff in stable condition. Dr. Hernandez was present. Apgars were 9(1 min), 9(5 min). Cord blood was obtained. Gentle traction on the umbilical cord and uterine fundal massage delivered the placenta. Placenta was intact. Placenta will be sent to pathology for review. Uterus was cleared of all clots and debris with a moist laparotomy sponge. Corners of the uterine incision were grasped with Allis clamps. The uterine incision was reapproximated with # 1 Vicryl suture in a running, locked stitch. Second layer of the same stitch was used to imbricate the incision. Excellent hemostasis was noted. Posterior cul-de-sac was cleaned with moist laparotomy sponge. (Uterus returned to the abdomen)Gutters cleared of all clots and debris with a moist laparotomy sponge. Reinspection of the lower uterine segment demonstrated small amount of oozing. Jay was applied over uterine incision. Hemostasis was noted. At this point all instruments and sponges were removed from the pelvis.? The corners of the fascia were grasped with Gwen clamps, and the fascia was reapproximated with two # 1 Vicryl suture overlapped to the right of midline. The subcutaneous tissue was reapproximated with 3-0 Vicryl. The skin was reapproximated with 2-0 Stratafix suture. Steri strips and Telfa were placed over closed Pfannenstiel skin incision. At the end of the procedure, the uterus was firm with minimal vaginal bleeding. Patient tolerated the procedure well. Instrument, sponges and needle counts were correct x 2. Mom and baby were transported to [facility]
--- NOTE | 2022-10-18 11:53 | SUR.PHASEI ---
0916- pt had blood loss of 1044.6. notified of this blood loss and wants to give 0.2mg methergine IM at this time. All blood loss protocols initiated. Q5min vitals taken and charted, 2 units PRBC's on hold, another IV started, 0.2mg methergine given. All vitals stable and lochia/fundus stable at this time.
[2022-10-18 14:59] LABS: Microscopic,Cath URINE MICROSCOPIC (MICROSCOPIC)
[2022-10-18 16:38] LABS: Appearance,Urine/Cath CLEAR (Clear); Bilirubin,Cath Negative (Negative); Blood, Urine/Cath 2+ (Negative); Color,Urine/Cath YELLOW (Yellow); Glucose,Urine/Cath (UA) Negative (Negative); Ketones,Urine/Cath 1+ (Negative); Leukocyte Esterase,Cath Negative (Negative); Nitrate,Cath Negative (Negative); PH,Urine/Cath 7.5 (5.0-8.5); Protein,Urine/Cath Negative (Negative); Specific Gravity, Urine/Cath 1.015 (1.005-1.030); Urobilinogen,Cath 0.2 EU/dl (0.2)
[2022-10-18 17:01] LABS: WBC,Urine/Cath Occasional #/hpf (0-3)
[2022-10-18 17:02] LABS: Squamous Epithelial Ur./Cath Occasional #/hpf (0-5)
[2022-10-19] VITALS (7 sets, daily range): BP systolic 105–134; BP diastolic 55–79; PULSE 73–93; RESP 16–18; TEMP 36.6–36.7; O2SAT 97–100
[2022-10-19 08:36] LABS: Basophils % 0.3 % (0.1-2.0); Eosinophils # 0.3 K/mm3 (0.0-0.4); Eosinophils % 2.1 % (0.1-12.0); Hematocrit 31.7 % (37.0-47.0); Hemoglobin 10.3 g/dL (12.2-16.2); Lymphocytes # 1.9 K/mm3 (0.7-4.5); Lymphocytes % 15.8 % (10-50); Mean Corpuscular HGB Conc 32.5 g/dL (31.8-35.4); Mean Corpuscular Hemoglobin 31.1 pg (27.0-31.2); Mean Corpuscular Volume 95.5 fl (81-99); Mean Platelet Volume 8.8 fl (7.4-10.4); Monocytes # 0.6 K/mm3 (0.1-1.0); Monocytes % 4.9 % (1.7-9.3); Neutrophils # 9.2 K/mm3 (1.8-7.8); Neutrophils % 76.9 % (37.0-80.0); Platelet Count 329 K/mm3 (142-424); Red Blood Count 3.32 M/mm3 (4.20-5.40); Red Cell Distribution Width 13.1 % (11.5-17.5); White Blood Count 11.9 K/mm3 (4.8-10.8)
--- NOTE | 2022-10-19 09:57 | EXP.ACUTE.PN ---
Subjective *Date: 10/19/22 *Time: 09:57 Interval history: POD # 1 s/p RLTCS Resting comfortably in bed. Pain is somewhat controlled. She is breast feeding. Light lochia. Voiding without difficulty and passing flatus. Tolerating regular diet. Denies fever/chills, chest pain and shortness of breath. No headaches, vision changes or swelling. Medical Exam Vital signs and Labs for Last 24 Hours: Vital Signs Temp Pulse Resp BP Pulse Ox 10/19/22 08:00 97.8 F 73 16 117/65 99 10/19/22 08:34 16 10/19/22 04:13 98.1 F 83 16 105/55 L 97 10/18/22 21:09 97.5 F L 77 18 113/72 99 10/18/22 10:20 97.8 F 73 16 130/75 100 10/18/22 10:16 75 18 139/88 100 10/18/22 10:11 83 17 129/96 H 100 10/18/22 10:06 72 16 134/85 100 10/18/22 10:01 75 20 135/79 98 10/18/22 10:15 16 10/18/22 10:06 16 Intake and Output 10/18/22 10/19/22 10/19/22 23:59 07:59 15:59 Output Total 1200 / 1200 Balance -1200 / 900 Output: Output, Urine Amount (Catheter) 1200 / 1200 Boles 1200 / 1200 Laboratory Results - last 24 hr 10/18/22 05:40: Blood Type AB Positive, Antibody Screen Negative, Crossmatch (AHG) See Detail 10/18/22 : Urine Color Yellow, Urine Appearance Clear, Urine pH 7.5, Ur Specific [place] 1.015, Urine Protein Negative, Urine Glucose (UA) Negative, Urine Ketones 1+, Urine Blood 2+, Urine Nitrate Negative, Urine Bilirubin Negative, Urine Urobilinogen 0.2, Ur Leukocyte Esterase Negative, Urine RBC 3-5, Urine WBC Occasional, Ur Squamous Epith Cells Occasional, Urine Bacteria None 10/19/22 08:10: WBC 11.9 H, RBC 3.32 L, Hgb 10.3 L, Hct 31.7 L, MCV 95.5, MCH 31.1, MCHC 32.5, RDW 13.1, Plt Count 329, MPV 8.8, Neut % (Auto) 76.9, Lymph % (Auto) 15.8, [place] % (Auto) 4.9, Eos % (Auto) 2.1, Baso % (Auto) 0.3, Neut # (Auto) 9.2 H, Lymph # (Auto) 1.9, [place] # (Auto) 0.6, Eos # (Auto) 0.3, Baso # (Auto) 0.0 I & O for Labs for Last 24 Hours: Intake & Output 10/16/22 10/17/22 10/18/22 10/19/22 23:59 23:59 23:59 23:59 Intake Total 2100 / 2100 Output Total 1200 / 1200 Balance 900 / 900 Weight 176 lb 4 oz Microbiology Reports for the Last 24 Hours: Microbiology 10/18/22 05:40 Urine,Clean Catch Urine Culture - Preliminary NO GROWTH AFTER 24 HOURS Head: Present atraumatic and normocephalic ENT: Present mucous membranes moist Neck: Present normal inspection and full ROM Respiratory: Present CTA bilaterally and normal respiratory effort Cardiac: Present Reg Rate and Rhythm GI: Present soft and normal bowel sounds; Absent distention or tenderness Comments:: Uterine fundus firm and below umbilicus, Pfannenstiel incision clean/dry/intact with steri strips in place Rectal (female): Present deferred (female): Present deferred Extremities: Present normal inspection and full ROM; Absent edema or calf tenderness Neuro: Present alert, awake, oriented x 3 and moves all extremities Assessment and Plan *Assessment and plan (1) with 39 completed weeks gestation: Status: Acute Category: Medical Code(s): Z3A.39 - 39 weeks gestation of (2) History of section: Status: Acute Category: Surgical Code(s): Z98.891 - History of uterine scar from previous surgery (3) Anxiety: Status: Chronic Category: Medical Code(s): F41.9 - Anxiety disorder, unspecified (4) Depression: Status: Chronic Qualifiers: Depression Type: major depressive disorder Major depression recurrence: single episode Active/Remission status: in full remission Qualified Code(s): F32.5 - Major depressive disorder, single episode, in full remission Category: Medical Code(s): F32.A - Depression, unspecified (5) 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
[2022-10-20 00:40] VITALS: BP 109/63; PULSE 81; RESP 18; TEMP 36.9
[2022-10-20 04:17] VITALS: BP 109/53; PULSE 76; RESP 18; TEMP 36.8; O2SAT 97
[2022-10-20 09:16] VITALS: RESP 16
--- NOTE | 2022-10-20 09:51 | EXP.DC.SUM ---
General Admission date:: 10/18/22 Discharge date: 10/20/22 HPI HPI HPI: POD # 2 s/p RLTCS Resting comfortably in bed. She was very tearful last night and admits to a lot of anxiety. She has history of depression and depression with her last child. Patient's mother recently . She was started on Wellbutrin 150 mg during . Pain is controlled with medication. Light lochia. She she is breast and supplemental formula feeding. She is voiding without difficulty and passing flatus. Denies fever/chills, chest pain and shortness of breath. No headaches/dizziness or vision changes. Hospital Course Hospital Course Hospital Course: Ms Keyla De La Cruz is a 27 yo at 39w0d who presents to [facility] for scheduled repeat . History of? x 2. She has had good care. She underwent repeat low transverse section on 10/18/22. She delivered a live female baby (baby's name is Jose) weighing 6 lb 14 oz, APGARs 8, 9. EBL 1000 mL. She was doing okay postoperatively. Pain control improved after POD # 1. She admits to feeling sad and anxious. She reported history of depression with last baby and her mother recently . She was breast and supplemental formula feeding. Light lochia. She was voiding without difficulty and passing flatus. Tolerating regular diet. Vital signs stable, afebrile. Heart was regular rate and rhythm. Lungs clear to auscultation. Abdomen soft, nontender. Bilateral lower extremities with trace edema. No calf tenderness to palpation. She received IV Venofer 200 mg x 1 dose on POD # 1 for acute blood loss anemia, hemorrhage. Decision was made to increase Wellbutrin to 300 mg daily. Patient requested to go [facility] POD # 2. Discussed discharge instructions including to return to the hospital for any homicidal or suicidal thoughts. She voiced agreement and understanding. She was discharged home on POD # 2. Exam Data for Last 24 hours Vital signs and Labs for Last 24 Hours: Temp Pulse Resp BP Pulse Ox 98.3 F 76 16 109/53 L 97 10/20/22 04:17 10/20/22 04:17 10/20/22 09:16 10/20/22 04:17 10/20/22 04:17 I & O for Last 24 hours: Intake & Output 10/17/22 10/18/22 10/19/22 10/20/22 23:59 23:59 23:59 23:59 Intake Total 2100 / 2100 Output Total 1200 / 1200 Balance 900 / 900 Weight 176 lb 4 oz Microbiology Reports for the Last 24 Hours: Microbiology 10/18/22 05:40 Urine,Clean Catch Urine Culture - Final NO GROWTH AFTER 48 HOURS Constitutional Constitutional: no acute distress and cooperative *Routine HEENT Exam Head: Present normocephalic and atraumatic Eye: Absent conjunctivae pink ENT: Present mucous membranes moist and dentition normal *Routine Neck Exam Neck: Present full ROM *Routine Respiratory Exam Respiratory: Present CTA bilaterally and normal respiratory effort *Routine Cardiovascular Exam Cardiovascular: Present RRR *Routine Abdominal Exam Abdominal: Present soft and normoactive bowel sounds; Absent tenderness or distended Comments: Uterine fundus firm and below umbilicus, Pfannenstiel incision clean/dry/intact. 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
[2022-10-20 13:46] VITALS: RESP 16
--- NOTE | 2022-10-21 07:26 | P.PNANES_ITS ---
[facility] Anesthesia Record Part II Anesthesia Record Part II Discharge Time: 10:20 Destination: Obstetric Gynecology Dept PACU nurse assessment reviewed?: Yes Patient Condition:: Good Anesthesia Complications:: None Swallowing reflex intact?: Yes Cyanosis?: No Blood Pressure: 130/75 Pulse Rate: 73 Temperature: 97.8 F Mental Status: Alert & Oriented Pain level:: 5 Nausea and/or vomitting:: None Intake, IV Amount: 0
[2022-10-21 07:27] VITALS: BP 130/75; PULSE 73; TEMP 36.6
== END 2022-10-20 14:45 | disposition home or self-care (01) | DRG 787 ==
PROVIDERS: Nurse Practitioner Obstetrics & Gynecology; Admitting Provider Obstetrics & Gynecology; PCP Physician Assistant; Visit Provider Obstetrics & Gynecology
PROC: 10D00Z1 Extraction of Products of Conception, Low, Open Approach (ICD-10-PCS; principal; 2022-10-18 07:30)
DX: O34.211 Maternal care for low transverse scar from previous cesarean delivery (principal); D62 Acute posthemorrhagic anemia; O72.1 Other immediate postpartum hemorrhage; N85.8 Other specified noninflammatory disorders of uterus; Z3A.39 39 weeks gestation of pregnancy; Z91.199 Patient's noncompliance with other medical treatment and regimen due to unspecified reason; O99.344 Other mental disorders complicating childbirth; F32.A Depression, unspecified; F41.9 Anxiety disorder, unspecified; Z87.891 Personal history of nicotine dependence; O69.81X0 Labor and delivery complicated by cord around neck, without compression, not applicable or unspecified; Z37.0 Single live birth; O99.893 Other specified diseases and conditions complicating puerperium; O90.81 Anemia of the puerperium
CPT/HCPCS: 59514; 36415; 59025; 80048; 80305; 81001; 82800; 85025; 86850; 87086; 88307; 94761; 96365; C9290; C9803; G0283; G0463; J1756; J2405; U0003; U0005

== ENCOUNTER 2023-02-11 12:05 | Emergency (ER) | payer OTHER, SELFPAY ==
[2023-02-11 12:07] VITALS: BP 141/86; PULSE 78; RESP 18; TEMP 37.1; O2SAT 99; BMI 25.2
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
[2023-02-11 13:06] VITALS: BP 120/85; PULSE 91; RESP 15; TEMP 36.6; O2SAT 100; BMI 27.8
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
[2023-02-11 13:30] VITALS: BP 120/85; PULSE 65; RESP 17; TEMP 36.7; O2SAT 100
== END 2023-02-11 13:31 | disposition home or self-care (01) ==
LOC: UTC 12:20 → ER 12:57
PROVIDERS: Emergency Provider Emergency Medicine; PCP Physician Assistant
DX: M54.12 Radiculopathy, cervical region (principal); R51.9 Headache, unspecified; H53.8 Other visual disturbances; J01.10 Acute frontal sinusitis, unspecified; F41.9 Anxiety disorder, unspecified; J45.909 Unspecified asthma, uncomplicated; F32.A Depression, unspecified; F17.210 Nicotine dependence, cigarettes, uncomplicated; V43.62XA Car passenger injured in collision with other type car in traffic accident, initial encounter
CPT/HCPCS: 99283

== ENCOUNTER → 2023-04-12 08:15 | Outpatient (CLI) | payer OTHER, SELFPAY ==
--- NOTE | 2023-04-12 08:15 | MR_ITS ---
PROCEDURE INFORMATION: Exam: MR Cervical Spine Without Contrast Exam date and time: 04/12/2023 8:18 AM Age: 27 years old Clinical indication: Neck pain. TECHNIQUE: Imaging protocol: Magnetic resonance imaging of the cervical spine without contrast. COMPARISON: US CA CAROTID DUPLEX BI 08/15/2020 10:17 AM FINDINGS: Bones/joints: Unremarkable. No fracture. Normal alignment. Spinal cord: Normal signal. No cord compression. C2-C3: No significant disc bulge or herniation. No severe spinal canal stenosis. No significant neural foraminal narrowing. C3-C4: No significant disc bulge or herniation. No severe spinal canal stenosis. No significant neural foraminal narrowing. C4-C5: No significant disc bulge or herniation. No severe spinal canal stenosis. No significant neural foraminal narrowing. C5-C6: No significant disc bulge or herniation. No severe spinal canal stenosis. No significant neural foraminal narrowing. C6-C7: There is a small left paracentral disc protrusion. C7-T1: No significant disc bulge or herniation. No severe spinal canal stenosis. No significant neural foraminal narrowing. Soft tissues: Unremarkable. IMPRESSION: Small left paracentral disc herniation at C6/7 without central spinal canal or neural foraminal stenosis.
== END ==
PROVIDERS: PCP Physician Assistant; Visit Provider Physician Assistant
DX: M54.2 Cervicalgia (principal)
CPT/HCPCS: 72141; 76376

== ENCOUNTER 2023-04-25 14:59 | Outpatient (RCR) | payer OTHER, SELFPAY ==
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
== END 2023-04-25 15:00 | disposition home or self-care (01) ==
LOC: PT 14:59
PROVIDERS: PCP Physician Assistant; Visit Provider Physician Assistant
DX: M54.2 Cervicalgia (principal); M50.20 Other cervical disc displacement, unspecified cervical region
CPT/HCPCS: 97163

== ENCOUNTER → 2023-04-30 08:15 | Outpatient (POV) | payer OTHER, SELFPAY ==
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
[2023-04-30 09:10] VITALS: BP 130/73; PULSE 100; RESP 18; O2SAT 98; BMI 28.3
== END ==
PROVIDERS: PCP Physician Assistant; Visit Provider Nurse Practitioner Family
DX: M54.12 Radiculopathy, cervical region (principal); M54.2 Cervicalgia
CPT/HCPCS: 99202; G0463

== ENCOUNTER 2023-05-23 17:39 | Emergency (ER) | payer OTHER, SELFPAY ==
[2023-05-23 17:55] VITALS: BP 125/75; PULSE 74; RESP 17; TEMP 36.6; O2SAT 99; BMI 29.7
--- NOTE | 2023-05-23 18:13 | EXP.UTC ---
Discharge Plan Disposition Patient Disposition: Home, Self-Care Condition: Good Prescriptions Prescriptions: New prednisone [prednisone] 20 mg tablet 20 mg PO BID 5 Days Qty: 10 0RF fqgmirwnmfkivda-jtavyxqqo-CX [Bromfed DM] 2-30-10 mg/5 mL Syrup 5 - 10 ml PO Q4H PRN (Reason: Cough) Qty: 240 0RF ondansetron 8 mg tablet,disintegrating 8 mg PO TID PRN (Reason: Nausea) Qty: 30 0RF No Action metronidazole 500 mg tablet 500 mg PO BID Qty: 20 3RF Flovent HFA 110 mcg/actuation HFA aerosol inhaler 1 puff IH DAILY Patient Comments: INHALE 1 PUFF BY MOUTH TWICE DAILY. USE regularly, RINSE MOUTH AFTER each USE. cetirizine 10 mg tablet 10 mg PO DAILY etonogestrel-ethinyl estradiol [NuvaRing] 0.12-0.015 mg/24 hr ring 1 vag ring vaginal Q4W Qty: 3 3RF Rx Instructions: leave in place for 3 weeks of a 4-week cycle dextroamphetamine-amphetamine [Adderall XR] 10 mg capsule,extended release 24hr 10 mg PO DAILY Qty: 30 0RF Referrals Follow up/Referrals: Cait Bourne PA [Primary Care Provider] - See instructions Clinical Impressions Clinical Impression: Viral upper respiratory illness Instructions Patient Instructions: DI for Viral Syndrome Discharge ED Provider: Cait Bourne [facility] [place] H[place] General Stated complaint: HEADACHE, ABDOMINAL PAIN, HOT FLASHES, COUGH Time Seen by Provider: 05/23/23 18:21 History of Present Illness Provider Complaint: Cough, congestion, body aches, chills, abdominal pain, fatigue, weakness X 4 days. No fever. Relieving factors: none Exacerbating factors: none Associated symptoms: denies other symptoms Treatments prior to arrival: none Related Data Home Medications Medication Instructions Recorded Confirmed cetirizine 10 mg tablet 10 mg PO DAILY Allergy symptoms 03/06/21 05/21/23 fluticasone propionate 110 1 puff inhalation DAILY Asthma 03/06/21 05/21/23 mcg/actuation HFA aerosol inhaler (Flovent HFA) Previous Rx's Medication Instructions Recorded etonogestrel 0.12 mg-ethinyl 1 vag ring vaginal Q4W #3 ea 03/04/23 estradiol 0.015 mg/24 hr vaginal ring (NuvaRing) metronidazole 500 mg tablet 500 mg PO BID #20 tabs 04/28/23 dextroamphetamine-amphetamine ER 10 mg PO DAILY #30 caps 05/02/23 10 mg 24hr capsule,extend release (Adderall XR) nnozzqoebnakrqw-sscsbezdszgrdac-EW 5 - 10 ml PO Q4H PRN Cough #240 mL 05/23/23 2 mg-30 mg-10 mg/5 mL oral syrup (Bromfed DM) ondansetron 8 mg disintegrating 8 mg PO TID PRN Nausea #30 tabs 05/23/23 tablet prednisone 20 mg tablet 20 mg PO BID 5 days #10 tabs 05/23/23 Allergies Allergy/AdvReac Type Severity Reaction Status Date / Time metoclopramide [From REGLAN] Allergy Mild Verified 05/21/23 10:41 montelukast [From SINGULAIR] Allergy Mild Verified 05/21/23 10:41 hydrocodone AdvReac Verified 05/21/23 10:41 PFSH PFSH Disclaimer: The information contained in this section may have been updated after the patient was seen, as this information can be updated by other users. Medical History Anxiety Asthma Depression Encounter for insertion of subdermal contraceptive High risk sexual behavior Migraine depression Surgical History History of breast augmentation History of section History of cholecystectomy History of dilatation and curettage History of foot surgery History of tonsillectomy and adenoidectomy History of wisdom tooth extraction Family History Other No significant family history Social History Smoking Status: Current every day smoker tobacco type: cigarettes packs per day: 1 second hand exposure: No alcohol intake: never substance use type: denies use current
[2023-05-23 18:18] VITALS: BP 125/75; PULSE 74; RESP 17; TEMP 36.6; O2SAT 99
== END 2023-05-23 18:30 | disposition home or self-care (01) ==
PROVIDERS: Emergency Provider Physician Assistant; PCP Physician Assistant
DX: J06.9 Acute upper respiratory infection, unspecified (principal); R10.9 Unspecified abdominal pain; R51.9 Headache, unspecified; R05.9 Cough, unspecified; R09.81 Nasal congestion; R68.83 Chills (without fever); R53.83 Other fatigue; B34.9 Viral infection, unspecified; F17.210 Nicotine dependence, cigarettes, uncomplicated; J45.909 Unspecified asthma, uncomplicated
CPT/HCPCS: 99212; 99214; G0463

== ENCOUNTER 2023-07-09 16:31 | Emergency (ER) | payer OTHER, SELFPAY ==
[2023-07-09 16:31] VITALS: BP 120/76; PULSE 91; RESP 18; TEMP 36.8; O2SAT 100; BMI 29.0
[2023-07-09 18:07] LABS: Adenovirus,PCR Not Detected (NotDetected); Coronavirus 19, PCR Not Detected (NotDetected); Coronavirus 229E Not Detected (NotDetected); Coronavirus NL63 Not Detected (NotDetected); Coronavirus OC43 Not Detected (NotDetected); Coronovirus HKU1,PCR Not Detected (NotDetected); Human Metapneumovirus Not Detected (NotDetected); Influenza A, PCR Not Detected (NotDetected); Influenza AH1, 2009 Not Detected (NotDetected); Influenza AH1, PCR Not Detected (NotDetected); Influenza AH3,PCR Not Detected (NotDetected); Influenza B, PCR Not Detected (NotDetected); Parainfluenza 1, PCR Not Detected (NotDetected); Parainfluenza 2, PCR Not Detected (NotDetected); Parainfluenza 3, PCR Not Detected (NotDetected); Parainfluenza 4, PCR Not Detected (NotDetected); Respiratory Syncytial Virus Not Detected (NotDetected); Rhinovirus/Enterovirus Not Detected (NotDetected)
--- NOTE | 2023-07-09 18:09 | EXP.UTC ---
Discharge Plan Disposition Patient Disposition: Home, Self-Care Condition: Good Prescriptions Prescriptions: No Action metronidazole 500 mg tablet 500 mg PO BID Qty: 20 3RF Flovent HFA 110 mcg/actuation HFA aerosol inhaler 1 puff IH DAILY Patient Comments: INHALE 1 PUFF BY MOUTH TWICE DAILY. USE regularly, RINSE MOUTH AFTER each USE. cetirizine 10 mg tablet 10 mg PO DAILY etonogestrel-ethinyl estradiol [NuvaRing] 0.12-0.015 mg/24 hr ring 1 vag ring vaginal Q4W Qty: 3 3RF Rx Instructions: leave in place for 3 weeks of a 4-week cycle dextroamphetamine-amphetamine [Adderall XR] 10 mg capsule,extended release 24hr 10 mg PO DAILY Qty: 30 0RF prednisone [prednisone] 20 mg tablet 20 mg PO BID 5 Days Qty: 10 0RF zlelgmtpcpnocxv-vbaplokqk-IH [Bromfed DM] 2-30-10 mg/5 mL Syrup 5 - 10 ml PO Q4H PRN (Reason: Cough) Qty: 240 0RF ondansetron 8 mg tablet,disintegrating 8 mg PO TID PRN (Reason: Nausea) Qty: 30 0RF Referrals Follow up/Referrals: Cait Bourne PA [Primary Care Provider] - See instructions Activity Restrictions/Add. Instructions Additional Instructions/Restrictions: *Monitor Temp, Over the counter Motrin or Tylenol as directed/as needed Tylenol every 4 hours and Motrin every 6 hours (as long as your family doctor has told you that you can take it) for fever or pain. and straight to ER if unable to lower temp less than 101.0 after medication given *Warm salt water gargles may help to soothe the throat *Throat Lozenges? *Warm fluids like tea with honey may help to soothe the throat? *Sleep elevated *Humidifier/Vaporizer Your throat swab was sent for culture. Those results are typically sent to your primary care. Be sure to follow up in 2-3 days with your family doctor/primary care physician if no improvement so they can review those result and treat if necessary. If you don?t have a primary care doctor, I recommend you get one but in the mean time, you will have to return to a walk in clinic Follow up IMMEDIATELY for new or worsening symptoms or no Noticeable improvement over the next 48-72 hours. 911 for difficulty breathing or swallowing You were tested for today for ?Upper Respiratory Panel with COVID19 your test result should be back in the next 24hours, you may check your results on the [facility] My Health Portal if you are COVID positive then you must Quarantine for 5 days Clinical Impressions Clinical Impression: Viral upper respiratory infection Instructions Patient Instructions: DI for Viral Upper Respiratory Infection -- Adult Discharge ED Provider: Peri Mckee [facility] [place] General Stated complaint: congestion, upset stomach, weakness Mode of Arrival: Ambulatory Source of Information: Patient Limitations: No Limitations Time Seen by Provider: 07/09/23 18:09 Description of Symptoms (Recalled from Triage Doc. by RN): Patient complaint of cough, fatigue and chills since yesterday. HEENT Symptoms (Recalled from RN notes): Yes Resp Symptoms (Recalled from RN notes): No Skin Symptoms (Recalled from RN notes): No MS Symptoms (Recalled from RN notes): No Functional Status (Recalled from RN notes): wnl History of Present Illness Provider Complaint: Patient states that she started feeling bad yesterday States that she has been having chills, fatigue and little cough States that she wants tested for strep throat and an URP due to her daughter has strep throat Related Data Home Medications Medication Instructions Recorded Confirmed cetirizine 10 mg tablet 10 mg PO DAILY Allergy symptoms 03/06/21 05/27/23 fluticasone propionate 110 1 puff inhalation DAILY Asthma 03/06/21 05/27/23 mcg/actuation HFA aerosol inhaler (Flovent HFA) Previous Rx's Medication Instructions Recorded etonogestrel 0.12 mg-ethinyl 1 vag ring vaginal Q4W #3 ea 03/04/23 estradiol 0.015 mg/24 hr vaginal ring (NuvaRing) metronidazole 500 mg tablet 500 mg PO BID #20 tabs 04/28/23 dextroamphetamine-amphetamine ER 10 mg PO DAILY #30 caps 05/02/23 10 mg 24hr capsule,extend release (Adderall XR) lyoblhzpbyxcmnf-uixhqnqoufisijd-EY 5 - 10 ml PO Q4H PRN Cough #240 mL 05/23/23 2 mg-30 mg-10 mg/5 mL oral syrup (Bromfed DM) ondansetron 8 mg disintegrating 8 mg PO TID PRN Nausea #30 tabs 05/23/23 tablet prednisone 20 mg tablet 20 mg PO BID 5 days #10 tabs 05/23/23 Allergies Allergy/AdvReac Type Severity Reaction Status Date / Time metoclopramide [From REGLAN] Allergy Mild Verified 05/27/23 11:33 montelukast [From SINGULAIR] Allergy Mild Verified 05/27/23 11:33 hydrocodone AdvReac Verified 05/27/23 11:33 Worker's Comp Is this a Worker's Comp case?: No [facility] Disclaimer: The information contained in this section may have been updated after the patient was seen, as this information can be updated by other users. Medical History Anxiety Asthma Depression Encounter for insertion of subdermal contraceptive High risk sexual behavior Migraine depression Surgical History History of breast augmentation History of section History of cholecystectomy History of dilatation and curettage History of foot surgery History of tonsillectomy and adenoidectomy History of wisdom tooth extraction Family History Other No significant family history Social History Smoking Status: Current every day smoker tobacco type: cigarettes packs per day: 1 second hand exposure: No alcohol intake: never substance use type: denies use current occupational status: employed Travel in the last 8 weeks: None household members: significant other and children housing: house number of children: 2 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/hazards: No caffeine: Yes ROS Obtained: Yes All systems reviewed & no additional complaints except as documented and Yes Systems reviewed as appropriate & no additional complaints except as documented Constitutional Constitutional: Reports system reviewed and no additional complaints, except as documented, Reports as per HPI and Reports body ache ENT Ears, Nose, Mouth, and Throat: Reports system reviewed and no additional complaints, except as documented, Reports as per HPI and Reports sore throat Cardiovascular Cardiovascular: Reports system reviewed and no additional complaints, except as documented and Reports as per HPI Respiratory Respiratory: Reports system reviewed and no additional complaints, except as documented, Reports as per HPI and Reports cough Gastrointestinal Gastrointestingal: Reports system reviewed and no additional complaints, except as documented and as per HPI Integumentary/Breasts Skin/Breast: Reports system reviewed and no additional complaints, except as documented and Reports as per HPI Physical Exam General General appearance: in no apparent distress ENT ENT exam: Present mucous membranes moist Expanded ENT Exam Nose exam: Absent sinus tenderness Throat exam: Present normal inspection Respiratory Respiratory exam: Present normal lung sounds bilaterally; Absent respiratory distress or wheezes Cardiovascular Cardiovascular exam: Present regular rate, normal rhythm and normal heart sounds Abdominal Exam Abdominal exam: Present soft and normal bowel sounds; Absent distention or tenderness Neurological Exam Neurological exam: Present alert, oriented X3 and normal gait Medical Decision Making Issac Inquiry Pt receiving controlled substance: No Issac was queried for this patient: No Vital Signs: 07/09/23 16:31 Temperature 98.3 F Temperature Source Oral Pulse Rate [Radial] 91 H Respiratory Rate 18 Blood Pressure [Right Arm] 120/76 Blood Pressure Mean [Right Arm] 90 Blood Pressure Source [Right Arm] Automatic Cuff Blood Pressure Position [Right Arm] Sitting 02 Sat by Pulse Oximetry 100 Oxygen Delivery Method Room Air Lab Data Lab results reviewed: Yes I reviewed the patient's lab results. Orders (Tests/Meds): ORDERS Category Date Time Status Full Resp Panel w/COVID ([facility]) Routine Lab 07/09/23 17:40 Received
[2023-07-09 18:10] LABS: UTC Strep Screen (Rapid) Negative (Negative)
[2023-07-09 18:19] VITALS: BP 120/76; PULSE 91; RESP 18; TEMP 36.8; O2SAT 100
== END 2023-07-09 18:19 | disposition home or self-care (01) ==
PROVIDERS: Emergency Provider Nurse Practitioner; PCP Physician Assistant
DX: R05.9 Cough, unspecified; J06.9 Acute upper respiratory infection, unspecified; R09.81 Nasal congestion; R11.0 Nausea; R53.83 Other fatigue; R68.83 Chills (without fever); B34.9 Viral infection, unspecified; F17.210 Nicotine dependence, cigarettes, uncomplicated
CPT/HCPCS: 87581; 87632; 87635; 87798; 87880; 99212; 99213; G0463

== ENCOUNTER → 2023-07-10 14:03 | Outpatient (CLI) | payer OTHER, SELFPAY ==
--- NOTE | 2023-07-10 14:09 | US_ITS ---
PROCEDURE: US TRANSVAGINAL CLINICAL INDICATION: abdominal pain, cramping COMPARISON: US TRANVAG US transvaginal from 08/25/2018 FINDINGS: Transvaginal sonographic images of the pelvis were obtained. UTERUS: 7.4cm x 4.6 cmx 3.5cm anteverted with a combined endometrial thickness of 9.5mm. Small 2 mm hyperechoic area adjacent to the endometrium posterior. Nabothian cyst in the cervix measuring 3.7 mm. LEFT OVARY: 1.6 cmx1.7 cmx3.0cm with a volume of 4ml. Several small follicles are seen. The largest measures 8 mm. RIGHT OVARY: 3.6 cmx 3.3cmx2.1cm with a volume of 13.3ml. Dominant follicle measuring 2.6 cm x 1.9 cm x 2.0 cm. Both ovaries are seen and appear normal. Doppler flow to both ovaries are seen. There is no fluid in the cul-de-sac. Her bladder still appeared full after the patient said she emptied it. IMPRESSION: 1. Anteverted uterus normal in shape and size. The endometrium is normal thickness. 2. There is a small hyperechoic area adjacent to the posterior endometrium of questionable significance. 3. Both ovaries are seen and appear normal. There is a dominant follicle measuring 2.6 cm in the right ovary. 4. No fluid in the cul-de-sac. 5. Residual urine after bladder emptying seems high. Dictated by: Jesse Arcos MD 07/11/2023 14:07 Jesse Arcos MD in OV 07/11/2023 14:07
== END ==
LOC: RAD 14:03
PROVIDERS: PCP Physician Assistant
DX: Z98.890 Other specified postprocedural states (principal)
CPT/HCPCS: 76830

== ENCOUNTER → 2023-07-10 23:59 | Outpatient (CLI) | payer OTHER, SELFPAY ==
[2023-07-10 18:12] LABS: Urine Pregnancy, HCG Qual. Negative (Negative)
== END ==
LOC: LAB.DROPOF 07-11 00:05
PROVIDERS: PCP Physician Assistant; Visit Provider Family Medicine
DX: R35.0 Frequency of micturition (principal); R10.9 Unspecified abdominal pain
CPT/HCPCS: 81025; 87086

== ENCOUNTER 2023-07-18 10:19 | Outpatient (CLI) | payer OTHER, SELFPAY ==
[2023-07-18 13:38] LABS: Amphetamine/Metha Screen,Urine Negative ng/ml (<1000); Barbiturates Screen,Urine Negative ng/ml (<200); Benzodiazepines Screen,Urine Negative ng/ml (<200); Cannabinoid Screen,Urine Negative ng/ml (<50); Cocaine Screen,Urine Negative ng/ml (<300); Methadone Screen,Urine Negative ng/ml (<300); Opiate Screen,Urine Negative ng/ml (<300); Phencyclidine Screen,Urine Negative ng/ml (<25)
== END 2023-07-18 23:59 ==
LOC: LAB.DROPOF 07-19 10:20
PROVIDERS: PCP Physician Assistant; Visit Provider Physician Assistant
DX: F90.9 Attention-deficit hyperactivity disorder, unspecified type (principal)
CPT/HCPCS: 80307

== ENCOUNTER 2023-07-22 16:34 | Outpatient (CLI) | payer OTHER, SELFPAY ==
[2023-07-25 22:32] LABS: Neisseria gonorrhoeae, NAA Negative (Negative)
== END 2023-07-22 23:59 ==
LOC: LAB.DROPOF 16:36
PROVIDERS: PCP Nurse Practitioner Obstetrics & Gynecology; Visit Provider Nurse Practitioner Obstetrics & Gynecology
DX: N89.8 Other specified noninflammatory disorders of vagina (principal)
CPT/HCPCS: 87491; 87591

== ENCOUNTER 2023-07-22 18:26 | Emergency (ER) | payer OTHER, SELFPAY ==
--- NOTE | 2023-07-22 18:26 | ECG_ITS ---
APPROVED REPORT Exam: Resting ECG HR:94 bpm ECG Measurements Heart Rate 94 AXES AK 132 P 64 QRSd 86 QRS 57 QT 355 T 63 QTc 407 Conclusion SINUS RHYTHM NORMAL ECG UNCONFIRMED REPORT Electronically signed by : Manjit Andres MD 07/23/2023 13:08:56
[2023-07-22 18:28] VITALS: BP 135/80; PULSE 97; RESP 20; TEMP 36.9; O2SAT 100; BMI 28.3
[2023-07-22 18:40] VITALS: PULSE 97
[2023-07-22 19:00] VITALS: BP 131/77; PULSE 91; O2SAT 100
--- NOTE | 2023-07-22 19:13 | XR_ITS ---
PROCEDURE INFORMATION: Exam: XR Chest Exam date and time: 07/22/2023 7:21 PM Age: 28 years old Clinical indication: Dyspnea TECHNIQUE: Imaging protocol: Radiologic exam of the chest. Views: 1 view. COMPARISON: CR XR CHEST 2V 10/29/2019 11:41 AM FINDINGS: Lungs: Unremarkable. No consolidation. Pleural spaces: Unremarkable. No pleural effusion. No pneumothorax. Heart/Mediastinum: Unremarkable. No cardiomegaly. Bones/joints: Unremarkable. IMPRESSION: No acute findings.
--- NOTE | 2023-07-22 19:16 | [facility].EDCP ---
Discharge Plan Disposition Patient Disposition: Home, Self-Care Prescriptions Prescriptions: No Action Flovent HFA 110 mcg/actuation HFA aerosol inhaler 1 puff IH DAILY Patient Comments: INHALE 1 PUFF BY MOUTH TWICE DAILY. USE regularly, RINSE MOUTH AFTER each USE. cetirizine 10 mg tablet 10 mg PO DAILY dextroamphetamine-amphetamine [Adderall XR] 20 mg capsule,extended release 24hr 20 mg PO QAM 30 Days Qty: 30 0RF Referrals Follow up/Referrals: Provider,Referral, MD [Primary Care Provider] - See instructions Activity Restrictions/Add. Instructions Additional Instructions/Restrictions: No acute cardiopulmonary emergency identified or neurologic emergency please return with any worsening symptoms otherwise follow-up with your primary care doctor. Clinical Impressions Clinical Impression: Headache, Chest pain, Dyspnea Discharge ED Provider: Moris Solis [facility] General Chief Complaint: Chest Pain Stated Complaint: chest pain Time Seen by Provider: 07/22/23 19:09 Mode of Arrival: Ambulatory Source of Information: Patient Limitations: No Limitations Description of Symptoms (Recalled from ER Triage Doc. by RN): pt began having sharp stabbing pain in right chest that started today noon. pt has taken prilosec, motrin and tylenol at home to help make it go away today. pt also states she has some jaw tightness and blurred vision History of Present Illness HPI narrative: Is a 28-year-old female with a history of asthma presenting today with multiple complaints. First she states she has had some head pressure which she describes as a headache which has been intermittent and she is taken some Tylenol and ibuprofen without any significant improvement in this. She denies any focal neurologic deficits associated with this. She also states she has had been having some dyspnea and right-sided chest pain. The dyspnea is constant but the right-sided chest pains been intermittent only lasting a few moments at a time and feels like a squeezing pain located in the right side without any associated radiation diaphoresis or exertional component. Denies any increase in her wheezing sputum production or cough. Related Data Home Medications Medication Instructions Recorded Confirmed cetirizine 10 mg tablet 10 mg PO DAILY Allergy symptoms 03/06/21 07/22/23 fluticasone propionate 110 1 puff inhalation DAILY Asthma 03/06/21 07/22/23 mcg/actuation HFA aerosol inhaler (Flovent HFA) Previous Rx's Medication Instructions Recorded dextroamphetamine-amphetamine ER 20 mg PO QAM 30 days #30 caps 07/18/23 20 mg 24hr capsule,extend release (Adderall XR) Allergies Allergy/AdvReac Type Severity Reaction Status Date / Time metoclopramide [From REGLAN] Allergy Mild Verified 07/22/23 08:58 montelukast [From SINGULAIR] Allergy Mild Verified 07/22/23 08:58 hydrocodone AdvReac Verified 07/22/23 08:58 PFSH [facility] Disclaimer: The information contained in this section may have been updated after the patient was seen, as this information can be updated by other users. Medical History (Updated 07/22/23 @ 19:15 by Moris Solis MD) Acute infection of sinus Anxiety Asthma Depression Encounter for insertion of subdermal contraceptive High risk sexual behavior Migraine depression Viral upper respiratory illness Viral upper respiratory infection Surgical History History of breast augmentation History of section History of cholecystectomy History of dilatation and curettage History of foot surgery History of tonsillectomy and adenoidectomy History of wisdom tooth extraction Family History Other No significant family history Social History Smoking Status: Current every day smoker tobacco type: cigarettes packs per day: 1 second hand exposure: No alcohol intake: never substance use type: denies use current occupational status: employed Travel in the last 8 weeks: None household members: significant other and children housing: house number of children: 2 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/hazards: No caffeine: Yes ROS Obtained: Yes All systems reviewed & no additional complaints except as documented Physical Exam General General appearance: alert and in no apparent distress Neck Neck exam: Absent meningismus Respiratory Respiratory exam: Present normal lung sounds bilaterally; Absent respiratory distress, wheezes or stridor Cardiovascular Cardiovascular exam: Present regular rate; Absent tachycardia Abdominal Exam Abdominal exam: Present soft; Absent distention or tenderness Neurological Exam Neurological exam: Present alert, oriented X3, CN II-XII intact and normal gait; Absent motor sensory deficit HEART Score HEART Score HEART Score assessment performed?: Yes History (anamnesis): Slightly suspicious ECG: Normal Age: <45 years Risk factors: No known risk factors Troponin: </= normal limit HEART Score: 0 Critical Care Critical Care Time Critical Care Time: No Medical Decision Making Issac Inquiry Pt receiving controlled substance: No Vital Signs Vital Signs: 07/22/23 18:28 07/22/23 18:40 07/22/23 19:00 Temperature 98.5 F Temperature Source Oral Pulse Rate 97 H 91 H Pulse Rate [Right Radial] 97 H Respiratory Rate 20 Blood Pressure 131/77 Blood Pressure [Right Arm] 135/80 Blood Pressure Mean Blood Pressure Mean [Right Arm] 98 02 Sat by Pulse Oximetry 100 100 Oxygen Delivery Method Room Air 07/22/23 19:30 07/22/23 20:00 Temperature Temperature Source Pulse Rate 81 Pulse Rate [Right Radial] Respiratory Rate Blood Pressure 127/74 117/74 Blood Pressure [Right Arm] Blood Pressure Mean 86 Blood Pressure Mean [Right Arm] 02 Sat by Pulse Oximetry 100 Oxygen Delivery Method Lab Data Lab results reviewed: Yes I reviewed the patient's lab results. Labs: Lab Results 07/22/23 18:30: WBC 9.4, RBC 4.24, Hgb 13.2, Hct 38.7, MCV 91.3, MCH 31.2, MCHC 34.2, RDW 13.0, Plt Count 305, MPV 8.2, Neut % (Auto) 62.6, Lymph % (Auto) 27.0, [place] % (Auto) 5.2, Eos % (Auto) 4.5, Baso % (Auto) 0.7, Neut # (Auto) 5.9, Lymph # (Auto) 2.5, [place] # (Auto) 0.5, Eos # (Auto) 0.4, Baso # (Auto) 0.1, Sodium 139, Potassium 3.7, Chloride 107, Carbon Dioxide 26, Anion Gap 9.7, BUN 14, Creatinine 0.70, Estimated Creat Clear 135, Estimated GFR 98, Est GFR ( Amer) 119, Glucose 79, Calcium 8.6, Total Bilirubin 0.5, AST 45 H, ALT 30, Alkaline Phosphatase 52, Troponin I < 0.01, Total Protein 6.7, Albumin 3.9, Globulin 2.8, Albumin/Globulin Ratio 1.4 07/22/23 18:30 07/22/23 18:30 Response Orders (Tests/Meds): ED MEDICATIONS Generic Name Dose Route Start Last Admin Trade Name Freq PRN Reason Stop Dose Admin Sodium Chloride 10 ml 07/22/23 18:39 Sodium Chloride 0.9% 10ml Flush Syringe IV 08/21/23 18:38 NEEDED PRN Maintain IV Site Discontinued Medications Generic Name Dose Route Start Last Admin Trade Name Bennett PRN Reason Stop Dose Admin Dexamethasone Sodium Phosphate 10 mg 07/22/23 19:15 07/22/23 19:25 Dexamethasone 4mg/Ml 1ml Vial IV 07/22/23 19:16 10 mg ONCE ONE Administration Diphenhydramine HCl 25 mg 07/22/23 19:13 07/22/23 19:25 Diphenhydramine 50mg/Ml Vial IV 07/22/23 19:14 25 mg ONCE ONE Administration Lactated Ringer's 1,000 mls @ 999 mls/hr 07/22/23 19:15 07/22/23 19:26 Lactated Ringer's 1000 Ml Bag IV 07/22/23 20:15 999 mls/hr .Q1H1M DEBBIE Administration Ketorolac Tromethamine 15 mg 07/22/23 19:13 07/22/23 19:26 Ketorolac 30mg/Ml Vial IV 07/22/23 19:14 15 mg ONCE ONE Administration Prochlorperazine Edisylate 10 mg 07/22/23 19:13 07/22/23 19:26 Prochlorperazine 10mg/2ml Vial IV 07/22/23 19:14 10 mg ONCE ONE Administration ORDERS Category Date Time Status CXR --portable [XR chest portable] Stat Exams 07/22/23 19:13 Completed CBC w/Auto Diff [Complete Blood Count Auto Diff] Stat Lab 07/22/23 18:30 Completed CMP [Comprehensive Metabolic Panel] Stat Lab 07/22/23 18:30 Completed Trop I [Troponin I] Stat Lab 07/22/23 18:30 Completed Troponin I Q3H Lab 07/22/23 22:15 Ordered Troponin I Q3H Lab 07/23/23 01:15 Ordered MDM Narrative Medical Decision Narrative: Patient is a 28-year-old female with multiple complaints including a headache and chest discomfort. From a neurologic standpoint a headache standpoint she has had no thunderclap component to this as a normal neurologic exam is very well-appearing this is not consistent with meningitis vascular dissection aneurysm rupture etc. Also do not suspect aortic dissection that would tie the 2 complaints together. Her right-sided chest discomfort is very intermittent spasmodic in nature. Cardiopulmonary exam is normal for me. She is PERC negative this is not consistent with a pulmonary embolism. Will get a single troponin and would not do serial troponins as this does not sound like acute coronary syndrome. Will treat her with a migraine cocktail that would include dexamethasone which also could double to treat possible asthmatic symptoms which could be causing her dyspnea and chest discomfort and I will reassess after her initial workup and treatment is complete. EKG performed at person interpreted shows a ventricular rate of 94 normal sinus no acute ischemic changes noted no acute significant conduction abnormalities noted no significant conduction abnormalities this is nondiagnostic from emergency standpoint. Chest x-ray performed which I personally interpreted which shows no acute abnormality Reassessment 8:54 PM patient looks excellent serial neurologic and cardiopulmonary exams are normal she feels much better she was discharged in stable condition.
--- NOTE | 2023-07-22 19:21 | PC.NURSE ---
xray at bedside
[2023-07-22 19:25] LABS: Basophils # 0.1 K/mm3 (0-0.2); Basophils % 0.7 % (0.1-2.0); Eosinophils # 0.4 K/mm3 (0.0-0.4); Eosinophils % 4.5 % (0.1-12.0); Hematocrit 38.7 % (37.0-47.0); Hemoglobin 13.2 g/dL (12.2-16.2); Lymphocytes # 2.5 K/mm3 (0.7-4.5); Mean Corpuscular HGB Conc 34.2 g/dL (31.8-35.4); Mean Corpuscular Hemoglobin 31.2 pg (27.0-31.2); Mean Corpuscular Volume 91.3 fl (81-99); Mean Platelet Volume 8.2 fl (7.4-10.4); Monocytes # 0.5 K/mm3 (0.1-1.0); Monocytes % 5.2 % (1.7-9.3); Neutrophils # 5.9 K/mm3 (1.8-7.8); Neutrophils % 62.6 % (37.0-80.0); Platelet Count 305 K/mm3 (142-424); Red Blood Count 4.24 M/mm3 (4.20-5.40); White Blood Count 9.4 K/mm3 (4.8-10.8)
[2023-07-22] MEDS: DEXAMETHASONE 4MG/ML 1ML VIAL 10 MG IV (19:25)
[2023-07-22] MEDS: diphenhydrAMINE 50MG/ML VIAL 25 MG IV (19:25)
[2023-07-22] MEDS: PROCHLORPERAZINE 10MG/2ML VIAL 10 MG IV (19:26)
[2023-07-22] MEDS: KETOROLAC 30MG/ML VIAL 15 MG IV (19:26)
[2023-07-22] MEDS: LACTATED RINGERS 1000ML 1,000 ML 999 ML IV (19:26)
[2023-07-22 19:29] LABS: Chloride 107 mmol/L (98-107); Potassium 3.7 mmoL/L (3.5-5.1); Sodium 139 mmol/L (136-145)
[2023-07-22 19:30] VITALS: BP 127/74
[2023-07-22 19:32] LABS: Alanine Aminotransferase 30 U/L (12-78); Albumin Level 3.9 g/dl (3.5-5.0); Albumin/Globulin Ratio 1.4 (1.1-1.8); Alkaline Phosphatase 52 U/L (38-126); Anion Gap 9.7 mEq/L (5-15); Aspartate Amino Transferase 45 U/L (14-36); Bilirubin,Total 0.5 mg/dl (0.2-1.3); Blood Urea Nitrogen 14 mg/dl (7-17); Carbon Dioxide 26 mmol/L (22.0-30.0); Creatinine Clearance Estimated 135 mL/min (50-200); Estimated Glomerular Filt Rate 98 ml/min (>60); GFR (African American) 119 ML/MIN (>60); Globulin 2.8 g/dL (1.3-3.2); Total Protein,Serum 6.7 g/dl (6.3-8.2)
[2023-07-22 19:33] LABS: Calcium 8.6 mg/dl (8.4-10.2); Glucose 79 mg/dl (74-100)
[2023-07-22 19:49] LABS: Troponin I < 0.01 ng/ml (0.00-0.034)
[2023-07-22 20:00] VITALS: BP 117/74; PULSE 81; O2SAT 100
[2023-07-22 21:30] VITALS: BP 121/79; PULSE 78; RESP 20; TEMP 36.7; O2SAT 100
== END 2023-07-22 21:30 | disposition home or self-care (01) ==
PROVIDERS: Emergency Provider Student in an Organized Health Care Education/Training Program
DX: R07.9 Chest pain, unspecified (principal); R51.9 Headache, unspecified; R06.00 Dyspnea, unspecified; H53.8 Other visual disturbances; R68.84 Jaw pain; J45.909 Unspecified asthma, uncomplicated; F17.210 Nicotine dependence, cigarettes, uncomplicated
CPT/HCPCS: 71045; 80053; 84484; 85025; 93005; 96361; 96374; 96375; 99285

== ENCOUNTER 2023-08-13 11:45 | Outpatient (CLI) | payer OTHER, SELFPAY ==
[2023-08-13 12:07] LABS: Basophils # 0.1 K/mm3 (0-0.2); Basophils % 0.9 % (0.1-2.0); Eosinophils # 0.3 K/mm3 (0.0-0.4); Eosinophils % 3.7 % (0.1-12.0); Hematocrit 44.6 % (37.0-47.0); Hemoglobin 14.4 g/dL (12.2-16.2); Lymphocytes # 0.9 K/mm3 (0.7-4.5); Lymphocytes % 12.9 % (10-50); Mean Corpuscular HGB Conc 32.4 g/dL (31.8-35.4); Mean Corpuscular Hemoglobin 29.9 pg (27.0-31.2); Mean Corpuscular Volume 92.2 fl (81-99); Mean Platelet Volume 8.2 fl (7.4-10.4); Monocytes # 0.6 K/mm3 (0.1-1.0); Neutrophils # 5.4 K/mm3 (1.8-7.8); Neutrophils % 74.5 % (37.0-80.0); Platelet Count 252 K/mm3 (142-424); Red Blood Count 4.83 M/mm3 (4.20-5.40); Red Cell Distribution Width 13.5 % (11.5-17.5); White Blood Count 7.3 K/mm3 (4.8-10.8)
[2023-08-13 12:12] LABS: Alanine Aminotransferase 18 U/L (12-78); Albumin Level 4.5 g/dl (3.5-5.0); Albumin/Globulin Ratio 1.7 (1.1-1.8); Alkaline Phosphatase 65 U/L (38-126); Anion Gap 12.5 mEq/L (5-15); Aspartate Amino Transferase 26 U/L (14-36); Bilirubin,Total 0.6 mg/dl (0.2-1.3); Blood Urea Nitrogen 7 mg/dl (7-17); Calcium 9.4 mg/dl (8.4-10.2); Carbon Dioxide 23 mmol/L (22.0-30.0); Chloride 106 mmol/L (98-107); Chol/HDL Ratio 3.7 (1-3.5); Cholesterol 179 mg/dl (140-200); Estimated Glomerular Filt Rate 98 ml/min (>60); GFR (African American) 119 ML/MIN (>60); Globulin 2.7 g/dL (1.3-3.2); Glucose 85 mg/dl (74-100); HDL Cholesterol 49 mg/dl (40-60); Potassium 4.5 mmoL/L (3.5-5.1); Sodium 137 mmol/L (136-145); Total Protein,Serum 7.2 g/dl (6.3-8.2); Triglycerides 150 mg/dl (30-150); VLDL Cholesterol 30 mg/dL (0-40)
[2023-08-13 12:25] LABS: C-Reactive Protein 2.3 mg/L (0-4); Direct LDL Cholesterol 100.27 mg/dL (100-129)
[2023-08-13 12:36] LABS: Erythrocyte Sedimentation Rate 5 mm/hr (0-20)
[2023-08-13 12:44] LABS: Thyroid Stimulating Hormone 0.55 uIU/mL (0.465-4.68)
[2023-08-13 13:02] LABS: Vitamin B12 610 pg/mL (239-931)
[2023-08-13 13:09] LABS: Iron 41 ug/dL (37-170)
[2023-08-13 13:19] LABS: Total Iron Binding Capacity 415 ug/dL (265-497)
[2023-08-13 13:46] LABS: Ferritin 20.2 ng/ml (6.24-137)
[2023-08-13 13:55] LABS: HCG Qualitative, Serum Negative (Negative)
[2023-08-14 08:22] LABS: HIV Screen 4th Generation wRfx Non Reactive (Non Reactive); RA Latex Turbid. <10.0 IU/mL (<14.0)
[2023-08-14 09:22] LABS: HBsAg Screen Negative (Negative); HCV Ab Non Reactive (Non Reactive); Hep A Ab, IGM Negative (Negative); Hep B Core Ab, IgM Negative (Negative)
[2023-08-14 11:13] LABS: Anti-Centromere B Antibodies <0.2 AI (0.0-0.9); Anti-DNA (DS) Ab Qn 4 IU/mL (0-9); Anti-Jo-1 <0.2 AI (0.0-0.9); Anti-Smith Antibody <0.2 AI (0.0-0.9); Antichromatin Antibodies <0.2 AI (0.0-0.9); Antiscleroderma-70 Antibodies <0.2 AI (0.0-0.9); RA Latex Turbid. <10.0 IU/mL (<14.0); RNP Antibodies <0.2 AI (0.0-0.9); Sjogren's Anti-SS-A <0.2 AI (0.0-0.9); Sjogren's Anti-SS-B <0.2 AI (0.0-0.9)
[2023-08-14 12:12] LABS: Anti-Cyclic Citrullinated Pept 7 units (0-19)
== END 2023-08-13 23:59 ==
LOC: LAB.DROPOF 11:45
PROVIDERS: PCP Physician Assistant; Visit Provider Physician Assistant
DX: M25.50 Pain in unspecified joint (principal); R53.83 Other fatigue; F90.9 Attention-deficit hyperactivity disorder, unspecified type; L29.9 Pruritus, unspecified; H92.03 Otalgia, bilateral; J02.9 Acute pharyngitis, unspecified; R19.7 Diarrhea, unspecified; R11.0 Nausea; R09.81 Nasal congestion; Z79.899 Other long term (current) drug therapy; Z11.4 Encounter for screening for human immunodeficiency virus [HIV]
CPT/HCPCS: 80053; 80061; 80074; 82607; 82728; 83540; 83550; 84443; 84703; 85025; 85651; 86140; 86200; 86225; 86235; 86431; 86703; G0432

== ENCOUNTER 2023-12-21 14:55 | Emergency (ER) | payer OTHER, SELFPAY ==
[2023-12-21 16:10] VITALS: BP 116/73; PULSE 82; RESP 18; TEMP 37; O2SAT 97; BMI 28.6
[2023-12-21 16:48] LABS: Apearance,Urine Clear (Clear); Bilirubin,Urine Negative (Negative); Blood, Urine Negative (Negative); Color,Urine Yellow (Yellow); Glucose,Urine (UA) Negative (Negative); Ketones,Urine Negative (Negative); Protein,Urine Negative (Negative); UTC Leukocyte Esterase,Urine Negative (Negative); UTC Nitrate,Urine Negative (Negative); Urobilinogen,Urine 0.2 EU/dl (0.2)
[2023-12-21 16:49] LABS: UTC Pregnancy Test, Urine Negative (Negative); UTC Strep Screen (Rapid) Negative (Negative)
--- NOTE | 2023-12-21 16:53 | ED_ITS ---
Discharge Plan Disposition Patient Disposition: Home, Self-Care Condition: Good Prescriptions Prescriptions: No Action cetirizine 10 mg tablet 10 mg PO DAILY dextroamphetamine-amphetamine [Adderall XR] 20 mg capsule,extended release 24hr 20 mg PO DAILY 30 Days Qty: 30 0RF ferrous sulfate 137 mg (45 mg iron) tablet extended release 137 mg PO DAILY Qty: 90 0RF ondansetron 8 mg tablet,disintegrating 8 mg PO Q8H PRN (Reason: nausea and vomiting) Qty: 30 0RF Referrals Follow up/Referrals: Cait Bourne PA [Primary Care Provider] - See instructions Activity Restrictions/Add. Instructions Additional Instructions/Restrictions: Increase fluids, water and not soda or tea. Can drink cranberry juice or cranberry extract. Wipe front to back Wear cotton underwear Empty bladder after intercourse Start antibiotics immediately and make sure you take the full course although you may start to see improvement over the next 48 hours. You can eat yogurt or take probiotics to decrease diarrhea or yeast infection caused by the antibiotic Be sure to follow-up anytime for new or worsening symptoms in 48 hours for wound urine culture results be sure to let you PCP no recent urine for culture so they can request records and ensure that you have appropriate antibiotic if you are not getting better or getting worse. If symptoms worsen or do not improve return or be seen in the ER. Follow-up with primary care this week. Clinical Impressions Clinical Impression: UTI (urinary tract infection), Exposure to strep throat Instructions Patient Instructions: DI for Urinary Tract Infection (UTI) Discharge ED Provider: Chayo ([facility])Jorge [facility] [place] HPI General Stated complaint: uti Mode of Arrival: Ambulatory Source of Information: Patient Limitations: No Limitations Time Seen by Provider: 12/21/23 16:53 Description of Symptoms (Recalled from Triage Doc. by RN): PATIENT C/O ABDOMINAL PAIN, BACK PAIN, CLOUDY URINE, AND FATIGUE THAT STARTED FRIDAY MORNING HEENT Symptoms (Recalled from RN notes): No Resp Symptoms (Recalled from RN notes): No Skin Symptoms (Recalled from RN notes): No MS Symptoms (Recalled from RN notes): Yes Functional Status (Recalled from RN notes): WNL History of Present Illness Provider Complaint: 28 YR OLD FEMALE PRESENTS FOR C/O ABDOMINAL PAIN,URINARY FREQ,URGENCY, BACK PAIN, CLOUDY URINE, AND FATIGUE THAT STARTED FRIDAY MORNING- KIDS POSITIVE FOR STREP Related Data Home Medications Medication Instructions Recorded Confirmed cetirizine 10 mg tablet 10 mg PO DAILY Allergy symptoms 03/06/21 12/21/23 Previous Rx's Medication Instructions Recorded ferrous sulfate 137 mg (45 mg 137 mg PO DAILY #90 tabs 08/15/23 iron) tablet,extended release ondansetron 8 mg disintegrating 8 mg PO Q8H PRN nausea and 08/18/23 tablet vomiting #30 tabs dextroamphetamine-amphetamine ER 20 mg PO DAILY 30 days #30 caps 11/20/23 20 mg 24hr capsule,extend release (Adderall XR) Allergies Allergy/AdvReac Type Severity Reaction Status Date / Time metoclopramide [From REGLAN] Allergy Mild Verified 11/19/23 14:32 montelukast [From SINGULAIR] Allergy Mild Verified 11/19/23 14:32 hydrocodone AdvReac Verified 11/19/23 14:32 Worker's Comp Is this a Worker's Comp case?: No [facility] Disclaimer: The information contained in this section may have been updated after the patient was seen, as this information can be updated by other users. 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 Depression Migraine Asthma Anxiety High risk sexual behavior Surgical History (Updated 08/13/23 @ 09:58 by CHARBEL Moss) History of tonsillectomy and adenoidectomy History of foot surgery History of dilatation and curettage History of breast augmentation History of wisdom tooth extraction History of section History of cholecystectomy Family History , MANAGER CHEMISTRY) No significant family history Social History , MANAGER CHEMISTRY) Smoking Status: Current every day smoker tobacco type: cigarettes packs per day: 1 second hand exposure: No alcohol intake: never substance use type: denies use current occupational status: employed Travel in the last 8 weeks: None household members: significant other and children housing: house number of children: 2 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/hazards: No caffeine: Yes ROS Obtained: Yes All systems reviewed & no additional complaints except as documented Constitutional Constitutional: Reports system reviewed and no additional complaints, except as documented Eyes Eyes: Reports system reviewed and no additional complaints, except as documented ENT Ears, Nose, Mouth, and Throat: Reports system reviewed and no additional complaints, except as documented Cardiovascular Cardiovascular: Reports system reviewed and no additional complaints, except as documented Respiratory Respiratory: Reports system reviewed and no additional complaints, except as documented Gastrointestinal Gastrointestingal: Reports system reviewed and no additional complaints, except as documented, as per HPI and cramping Genitourinary Female Genitourinary: Reports system reviewed and no additional complaints, except as documented, Reports as per HPI, Reports urinary frequency and Reports urinary urgency Musculoskeletal Musculoskeletal: Reports system reviewed and no additional complaints, except as documented Integumentary/Breasts Skin/Breast: Reports system reviewed and no additional complaints, except as documented Neurologic Neurologic: Reports system reviewed and no additional complaints, except as documented Endocrine Endocrine: Reports system reviewed and no additional complaints, except as documented Hematologic/Lymphatic Henatologic/Lymphatic: Reports system reviewed and no additional complaints, except as documented Allergic/Immunologic Allergic/Immunologic: Reports system reviewed and no additional complaints, except as documented Physical Exam General General appearance: alert and in no apparent distress Eye Eye exam: Present normal appearance ENT ENT exam: Present normal exam Neck Neck exam: Present normal inspection Respiratory Respiratory exam: Present normal lung sounds bilaterally Cardiovascular Cardiovascular exam: Present regular rate and normal rhythm Neurological Exam Neurological exam: Present alert and oriented X3 Medical Decision Making Medical Records Medical records reviewed: Yes I reviewed the patient's medical records. Issac Inquiry Pt receiving controlled substance: No Issac was queried for this patient: No Vital Signs: 12/21/23 16:10 Temperature 98.6 F Temperature Source Oral Pulse Rate [Right Brachial] 82 Respiratory Rate 18 Blood Pressure [Right Arm] 116/73 Blood Pressure Mean [Right Arm] 87 Blood Pressure Source [Right Arm] Automatic Cuff Blood Pressure Position [Right Arm] Sitting 02 Sat by Pulse Oximetry 97 Oxygen Delivery Method Room Air Lab Data Lab results reviewed: Yes I reviewed the patient's lab results. Lab Results 12/21/23 16:34: Urine Color Yellow, Urine Appearance Clear, Urine pH 6.0, Ur Specific [place] 1.020, Urine Protein Negative, Urine Glucose (UA) Negative, Urine Ketones Negative, Urine Blood Negative, Urine Nitrate Negative, Urine Bilirubin Negative, Urine Urobilinogen 0.2, Ur Leukocyte Esterase Negative, Tst Clinic Negative, Strep Scn Rapid Clinic Negative Orders (Tests/Meds): ORDERS Category Date Time Status Strep Screen Confirmation Stat Micro 12/21/23 16:34 Received
[2023-12-21 17:10] VITALS: BP 116/73; PULSE 82; RESP 18; TEMP 37; O2SAT 97
== END 2023-12-21 17:28 | disposition home or self-care (01) ==
PROVIDERS: Emergency Provider Nurse Practitioner Family; PCP Physician Assistant
DX: N39.0 Urinary tract infection, site not specified (principal); M54.59 Other low back pain; R10.9 Unspecified abdominal pain; R35.0 Frequency of micturition; F17.210 Nicotine dependence, cigarettes, uncomplicated
CPT/HCPCS: 81003; 81025; 87086; 87880; 99212; 99214; G0463

== ENCOUNTER 2024-02-03 12:00 | Outpatient (CLI) | payer OTHER, SELFPAY ==
[2024-02-03 16:43] LABS: Coronavirus 19, PCR Not Detected (NotDetected); Influenza A, PCR Not Detected (NotDetected); Influenza B, PCR Not Detected (NotDetected)
== END 2024-02-03 23:59 | disposition home or self-care (01) ==
LOC: LAB.DROPOF 02-04 12:00
PROVIDERS: PCP Physician Assistant; Visit Provider Physician Assistant
DX: R06.02 Shortness of breath (principal)
CPT/HCPCS: 87636

== ENCOUNTER 2024-03-08 12:31 | Outpatient (CLI) | payer OTHER, SELFPAY ==
[2024-03-08 12:28] LABS: Coronavirus 19, PCR Not Detected (NotDetected); Influenza A, PCR Not Detected (NotDetected); Influenza B, PCR Not Detected (NotDetected)
== END 2024-03-08 23:59 | disposition home or self-care (01) ==
LOC: LAB.DROPOF 12:31
PROVIDERS: PCP Physician Assistant; Visit Provider Physician Assistant
DX: J06.9 Acute upper respiratory infection, unspecified (principal); R09.81 Nasal congestion; R05.9 Cough, unspecified; J02.9 Acute pharyngitis, unspecified; R09.89 Other specified symptoms and signs involving the circulatory and respiratory systems; F17.210 Nicotine dependence, cigarettes, uncomplicated
CPT/HCPCS: 87636

== ENCOUNTER 2024-03-11 09:30 | Outpatient (CLI) | payer OTHER, SELFPAY ==
[2024-03-16 22:12] LABS: Neisseria gonorrhoeae, NAA Negative (Negative)
== END 2024-03-11 23:59 | disposition home or self-care (01) ==
LOC: LAB.DROPOF 03-12 09:49
PROVIDERS: PCP Obstetrics & Gynecology; Visit Provider Obstetrics & Gynecology
DX: Z72.51 High risk heterosexual behavior (principal)
CPT/HCPCS: 87491; 87591

== ENCOUNTER 2024-03-31 14:58 | Outpatient (CLI) | payer OTHER, SELFPAY ==
[2024-03-31 18:57] LABS: Adenovirus,PCR Not Detected (NotDetected); Bordetella Pertussis Not Detected (NotDetected); Chlamydophila Pneumoniae, PCR Not Detected (NotDetected); Coronavirus 19, PCR Not Detected (NotDetected); Coronavirus 229E Not Detected (NotDetected); Coronavirus NL63 Not Detected (NotDetected); Coronavirus OC43 Not Detected (NotDetected); Coronovirus HKU1,PCR Not Detected (NotDetected); Human Metapneumovirus Not Detected (NotDetected); Influenza A, PCR Not Detected (NotDetected); Influenza AH1, 2009 Not Detected (NotDetected); Influenza AH1, PCR Not Detected (NotDetected); Influenza AH3,PCR Not Detected (NotDetected); Influenza B, PCR Not Detected (NotDetected); Mycoplasma Pneumoniae, PCR Not Detected (NotDetected); Parainfluenza 1, PCR Not Detected (NotDetected); Parainfluenza 2, PCR Not Detected (NotDetected); Parainfluenza 3, PCR Not Detected (NotDetected); Parainfluenza 4, PCR Not Detected (NotDetected); Respiratory Syncytial Virus Not Detected (NotDetected); Rhinovirus/Enterovirus Not Detected (NotDetected)
== END 2024-03-31 23:59 | disposition home or self-care (01) ==
LOC: LAB.DROPOF 04-01 10:17
PROVIDERS: PCP Nurse Practitioner Family; Visit Provider Nurse Practitioner Family
DX: R11.2 Nausea with vomiting, unspecified (principal)
CPT/HCPCS: 87265; 87486; 87581; 87632; 87635

== ENCOUNTER 2024-04-25 17:51 | Emergency (ER) | payer OTHER, SELFPAY ==
--- NOTE | 2024-04-25 18:28 | XR_ITS ---
PROCEDURE INFORMATION: Exam: XR Right Foot Exam date and time: 04/25/2024 6:46 PM Age: 28 years old Clinical indication: Pain; Foot; Right TECHNIQUE: Imaging protocol: Radiologic exam of the right foot. Views: 3 or more views. COMPARISON: CR XR FOOT WT BEARING RT 3V 05/14/2019 3:19 PM FINDINGS: Bones/joints: No acute fracture or malalignment. Chronic talonavicular joint degenerative changes. Soft tissues: Normal. IMPRESSION: No acute osseous findings.
[2024-04-25 18:37] VITALS: BMI 25.7
[2024-04-25 18:44] LABS: Microscopic, Urine URINE MICROSCOPIC (MICROSCOPIC)
[2024-04-25 18:46] LABS: Appearance,Urine CLEAR (Clear); Bilirubin,Urine Negative (Negative); Blood, Urine Negative (Negative); Color,Urine YELLOW (Yellow); Glucose,Urine (UA) Negative (Negative); Ketones,Urine Negative (Negative); Leukocyte Esterase,Urine Negative (Negative); Nitrate,Urine Negative (Negative); PH,Urine 6.5 (5.0-8.5); Protein,Urine Negative (Negative); Specific Gravity, Urine 1.025 (1.005-1.030)
[2024-04-25 18:49] LABS: UTC Pregnancy Test, Urine Negative (Negative)
[2024-04-25 18:53] LABS: Bacteria,Urine Trace /lpf; RBC,Urine Occasional #/hpf (0-3); WBC,Urine Occasional #/hpf (0-3)
[2024-04-25 19:20] VITALS: BP 125/50; PULSE 87; RESP 20; TEMP 36.6; O2SAT 100; BMI 27.8
--- NOTE | 2024-04-25 19:35 | EXP.UTC ---
Discharge Plan Disposition Patient Disposition: Home, Self-Care Condition: Good Prescriptions Prescriptions: No Action dextroamphetamine-amphetamine [Adderall XR] 20 mg capsule,extended release 24hr 20 mg PO DAILY Patient Comments: TAKE ONE CAPSULE BY MOUTH EVERY DAY desvenlafaxine succinate 25 mg tablet extended release 24 hr 25 mg PO DAILY Patient Comments: TAKE ONE TABLET BY MOUTH EVERY DAY AT BEDTIME FOR DEPRESSION Tyblume 0.1 mg- 20 mcg tablet,chewable 1 tab PO DAILY Patient Comments: TAKE ONE TABLET BY MOUTH DAILY Referrals Follow up/Referrals: Cait Bourne PA [Primary Care Provider] - See instructions Ariadne Morgan APRN [Nurse Practitioner] - See instructions Odette Matthew DPM [Staff Physician] - See instructions Activity Restrictions/Add. Instructions Additional Instructions/Restrictions: *Monitor Temp, Over the counter Motrin or Tylenol as directed/as needed Tylenol every 4 hours and Motrin every 6 hours (as long as your family doctor has told you that you can take it) for fever or pain. and straight to ER if unable to lower temp less than 101.0 after medication given *Warm salt water gargles may help to soothe the throat *Throat Lozenges? *Warm fluids like tea with honey may help to soothe the throat? *Sleep elevated *Humidifier/Vaporizer *weight bearing as tolerated *RICE, Rest the extremity, Ice 15-20 minutes 3-4 times daily, Compress- wear the zi wrap as discussed as much as possible to help reduce swelling and pain, Elevate the extremity when at rest *Zi wrap is for support and help control swelling, use it except in the shower. Be sure that is not to tight but not to loose either *Elevate when resting? *Ibuprofen 600-800mg every 6-8 hours as needed for pain an inflammation. If need something more can take Tylenol in between doses of Ibuprofen to help Immediately follow up with your family doctor for new or worsening of symptoms, or no noticeable improvement over the next 3-5 days Your throat swab was sent for culture. Those results are typically sent to your primary care. Be sure to follow up in 2-3 days with your family doctor/primary care physician if no improvement so they can review those result and treat if necessary. If you don?t have a primary care doctor, I recommend you get one but in the mean time, you will have to return to a walk in clinic Follow up IMMEDIATELY for new or worsening symptoms or no Noticeable improvement over the next 48-72 hours. 911 for difficulty breathing or swallowing Call back to the [facility] in the morning for official reading of your foot xray and follow up with Podiatry if pain continues You were tested for today for Upper Respiratory Panel with COVID19 your test result should be back in the next 24hours, you may check your results on the [facility] [employer] Portal Clinical Impressions Clinical Impression: Sprain of toe, Viral upper respiratory infection Instructions Patient Instructions: DI for Viral Upper Respiratory Infection -- Adult, How To Perform RICE (Rest, Ice, Compress, Elevate), DI for Toe Sprain Print Language Print Language: [place] Discharge ED Provider: Peri Mckee [facility] [place] HPI General Stated complaint: congested,fatigue , broken toe Mode of Arrival: Ambulatory Source of Information: Patient Limitations: No Limitations Time Seen by Provider: 04/25/24 19:35 Description of Symptoms (Recalled from Triage Doc. by RN): PATIENT C/O CONGESTION, FATIGUE, BODY ACHES, AND HEADACHE X 3 DAYS. PATIENT ALSO REPORTS INJURY TO RIGHT GREAT TOE HEENT Symptoms (Recalled from RN notes): Yes Resp Symptoms (Recalled from RN notes): No Skin Symptoms (Recalled from RN notes): No MS Symptoms (Recalled from RN notes): Yes Functional Status (Recalled from RN notes): WNL History of Present Illness Provider Complaint: Patient states that she was recently on vacation with family and several of them has since tested positive for strep and RSV States that she has been feeling achy, headache, fatigue, and having nasal congestion worried that she may have Strep throat or RSV States that she also wanted to get her foot checked she stomped it on a concrete parking stop and has been having pain in her right great toe Related Data Home Medications ?Medication ?Instructions ?Recorded ?Confirmed desvenlafaxine succinate 25 mg 25 mg PO DAILY 04/25/24 04/25/24 tablet,extended release 24 hr dextroamphetamine-amphetamine ER 20 mg PO DAILY 04/25/24 04/25/24 20 mg 24hr capsule,extend release (Adderall XR) levonorgestrel 0.1 mg-ethinyl 1 tab PO DAILY 04/25/24 04/25/24 estradiol 20 mcg chewable tablet (Tyblume) Allergies Allergy/AdvReac Type Severity Reaction Status Date / Time metoclopramide [From REGLAN] Allergy Mild Verified 04/08/24 16:01 montelukast [From SINGULAIR] Allergy Mild Verified 04/08/24 16:01 hydrocodone AdvReac Verified 04/08/24 16:01 Worker's Comp Is this a Worker's Comp case?: No [facility] Disclaimer: The information contained in this section may have been updated after the patient was seen, as this information can be updated by other users. 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 Depression Migraine Asthma Anxiety High risk sexual behavior Surgical History History of tonsillectomy and adenoidectomy History of foot surgery History of dilatation and curettage History of breast augmentation History of wisdom tooth extraction History of section History of cholecystectomy Family History Other No significant family history Social History Smoking Status: Current every day smoker tobacco type: cigarettes packs per day: 1 second hand exposure: No alcohol intake: never substance use type: denies use current occupational status: employed Travel in the last 8 weeks: None household members: significant other and children housing: house number of children: 2 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/hazards: No caffeine: Yes ROS Obtained: Yes All systems reviewed & no additional complaints except as documented and Yes Systems reviewed as appropriate & no additional complaints except as documented Constitutional Constitutional: Reports system reviewed and no additional complaints, except as documented, Reports as per HPI, Reports body ache, Reports chills and Reports headache(s) ENT Ears, Nose, Mouth, and Throat: Reports system reviewed and no additional complaints, except as documented, Reports as per HPI, Reports headache(s), Reports nasal congestion and Reports nasal discharge Cardiovascular Cardiovascular: Reports system reviewed and no additional complaints, except as documented and Reports as per HPI Respiratory Respiratory: Reports system reviewed and no additional complaints, except as documented and Reports as per HPI Gastrointestinal Gastrointestingal: Reports system reviewed and no additional complaints, except as documented and as per HPI Genitourinary Female Genitourinary: Reports system reviewed and no additional complaints, except as documented and Reports as per HPI Neurologic Neurologic: Reports headache(s) Physical Exam General General appearance: alert and in no apparent distress ENT ENT exam: Present mucous membranes moist Expanded ENT Exam Nose exam: Absent sinus tenderness Throat exam: Present normal inspection Respiratory Respiratory exam: Present normal lung sounds bilaterally; Absent respiratory distress or wheezes Cardiovascular Cardiovascular exam: Present regular rate, normal rhythm and normal heart sounds Neurological Exam Neurological exam: Present alert, oriented X3 and normal gait Medical Decision Making Medical Records Screening: Per USPSTF and CDC recommendations, given the prevalence of disease in our region, it is our hospital?s policy to screen for HIV and viral Hepatitis for all patients aged 18 and over and those with ongoing risk factors. Issac Inquiry Pt receiving controlled substance: No Issac was queried for this patient: No Vital Signs: 04/25/24 19:20 Temperature 97.8 F Temperature Source Oral Pulse Rate [Left Brachial] 87 Respiratory Rate 20 Blood Pressure [Left Arm] 125/50 L Blood Pressure Mean [Left Arm] 75 Blood Pressure Source [Left Arm] Automatic Cuff Blood Pressure Position [Left Arm] Sitting 02 Sat by Pulse Oximetry 100 Oxygen Delivery Method Room Air Lab Data Lab results reviewed: Yes I reviewed the patient's lab results. Lab Results 04/25/24 18:37: Urine Color Yellow, Urine Appearance Clear, Urine pH 6.5, Ur Specific [place] 1.025, Urine Protein Negative, Urine Glucose (UA) Negative, Urine Ketones Negative, Urine Blood Negative, Urine Nitrate Negative, Urine Bilirubin Negative, Urine Urobilinogen 1.0, Ur Leukocyte Esterase Negative, Urine RBC Occasional, Urine WBC Occasional, Ur Squamous Epith Cells 10-20, Urine Bacteria Trace 04/25/24 18:38: Tst Clinic Negative Orders (Tests/Meds): ORDERS Category Date Time Status Foot XR right minimum 3 views [XR foot RT min 3V] Stat Exams 04/25/24 18:28 Taken Full Resp Panel w/COVID ([facility]) Routine Lab 04/25/24 19:31 Ordered UA [Urinalysis and Microscopic] Stat Lab 04/25/24 18:37 Completed Radiology Data #1: Image(s): Foot/Toes Image Reviewed: Yes I reviewed the patient's radiology image no acute fracture Procedures Orthopedic Splinting/Casting Injury #1: Side: right Lower Extremity Injury Location: foot and toe Lower Extremity Immobilizer: post-op shoe and applied by nurse/dr jackson Post Cast/Splinting Neuro Status: intact and no change Post Cast/Splinting Vasc Status: intact and no change
[2024-04-25 19:43] LABS: UTC Strep Screen (Rapid) Negative (Negative)
[2024-04-25 20:39] VITALS: BP 125/50; PULSE 87; RESP 20; TEMP 36.6; O2SAT 100
[2024-04-25 20:48] LABS: Adenovirus,PCR Not Detected (NotDetected); Bordetella Pertussis Not Detected (NotDetected); Chlamydophila Pneumoniae, PCR Not Detected (NotDetected); Coronavirus 19, PCR Not Detected (NotDetected); Coronavirus 229E Not Detected (NotDetected); Coronavirus NL63 Not Detected (NotDetected); Coronavirus OC43 Not Detected (NotDetected); Coronovirus HKU1,PCR Not Detected (NotDetected); Human Metapneumovirus Not Detected (NotDetected); Influenza A, PCR Not Detected (NotDetected); Influenza AH1, 2009 Not Detected (NotDetected); Influenza AH1, PCR Not Detected (NotDetected); Influenza AH3,PCR Not Detected (NotDetected); Influenza B, PCR Not Detected (NotDetected); Mycoplasma Pneumoniae, PCR Not Detected (NotDetected); Parainfluenza 1, PCR Not Detected (NotDetected); Parainfluenza 2, PCR Not Detected (NotDetected); Parainfluenza 3, PCR Not Detected (NotDetected); Parainfluenza 4, PCR Not Detected (NotDetected); Respiratory Syncytial Virus Not Detected (NotDetected); Rhinovirus/Enterovirus Not Detected (NotDetected)
== END 2024-04-25 21:01 | disposition home or self-care (01) ==
PROVIDERS: Emergency Provider Nurse Practitioner; PCP Physician Assistant
DX: S93.501A Unspecified sprain of right great toe, initial encounter (principal); J06.9 Acute upper respiratory infection, unspecified; X58.XXXA Exposure to other specified factors, initial encounter
CPT/HCPCS: 73630; 81001; 81025; 87265; 87486; 87581; 87632; 87635; 87880; 99213; G0381

== ENCOUNTER 2024-05-17 15:50 | Outpatient (CLI) | payer OTHER, SELFPAY ==
--- NOTE | 2024-05-17 15:51 | US_ITS ---
PROCEDURE: US OB TRANSVAGINAL CLINICAL INDICATION: Pelvic Pain COMPARISON: US US TRANSVAGINAL from 07/10/2023 FINDINGS: Transvaginal sonographic images of the pelvis were obtained. The uterus is anteverted. From her last menstrual period she is 4weeks 4days. An intrauterine gestational sac is present but no pole is seen yet. This correlates to a gestational age of 5weeks 3days. heart tones are not seen today. Yolk sac is noted. The yolk sac measures 2.3mm. The right ovary is seen and appears normal. There is a follicle within the right ovary measuring 3.7 cm x 3.3 cm x 3.8 cm The left ovary is seen and appears normal. There is no fluid in the cul-de-sac. IMPRESSION: 1. Anteverted uterus and within the uterine cavity is a gestational sac. A yolk sac is present that measures 2.3 mm. 2. pole is not yet seen due to the early gestational age. Suggest repeat scan in 1-2 weeks. 3. Both ovaries are seen and appear normal. There is a 3.8 cm follicle in the right ovary. 4. No fluid in the cul-de-sac. Dictated by: Jesse Arcos MD 05/18/2024 09:42 Jesse Arcos MD in OV 05/18/2024 09:42
== END 2024-05-17 23:59 | disposition home or self-care (01) ==
LOC: RAD 15:51
PROVIDERS: PCP Physician Assistant; Visit Provider Obstetrics & Gynecology
DX: R10.2 Pelvic and perineal pain (principal)
CPT/HCPCS: 76817

== ENCOUNTER 2024-05-31 12:53 | Outpatient (CLI) | payer OTHER, SELFPAY ==
--- NOTE | 2024-05-31 12:53 | US_ITS ---
PROCEDURE: US OB <= 14 WEEKS FETUS CLINICAL INDICATION: Bleeding/viability COMPARISON: US US OB TRANSVAGINAL from 05/17/2024 FINDINGS: Transvaginal sonographic images of the pelvis were obtained. From her last menstrual period she is 6weeks 4days. An intrauterine gestational sac is present with a pole with a crown-rump length of 1.08cm This correlates to a gestational age of 7weeks 2days. heart tones are present with an FHR of 129bpm. Yolk sac is noted. The yolk sac measures 5.9mm. There is a small subchorionic hemorrhage. The right ovary is seen and appears normal. There is a cyst measuring 5.3 cm x 4.1 cm x 4.1 cm The left ovary is seen and appears normal. There is no fluid in the cul-de-sac. IMPRESSION: 1. An intrauterine gestational sac is present with an embryo measuring 1.08 cm. 2. cardiac activity is seen. 3. This is consistent with a gestational age of 7 weeks 2 days. SORIN will remain 01/20/2025 4. Small subchorionic hemorrhage is seen. 5. Left ovary seen appears normal. 6. The right ovary contains a thin walled, simple cyst measuring 5.3 cm. Suggest follow-up at the 20 week anatomy scan. Dictated by: Jesse Arcos MD 05/31/2024 15:38 Jesse Arcos MD in OV 05/31/2024 15:38
== END 2024-05-31 23:59 | disposition home or self-care (01) ==
LOC: RAD 12:53
PROVIDERS: PCP Physician Assistant; Visit Provider Obstetrics & Gynecology
DX: Z34.90 Encounter for supervision of normal pregnancy, unspecified, unspecified trimester (principal)
CPT/HCPCS: 76801

== ENCOUNTER 2024-06-07 10:06 | Outpatient (CLI) | payer OTHER, SELFPAY ==
[2024-06-07 17:56] LABS: Adenovirus,PCR Not Detected (NotDetected); Bordetella Pertussis Not Detected (NotDetected); Chlamydophila Pneumoniae, PCR Not Detected (NotDetected); Coronavirus 19, PCR Not Detected (NotDetected); Coronavirus 229E Not Detected (NotDetected); Coronavirus NL63 Not Detected (NotDetected); Coronavirus OC43 Not Detected (NotDetected); Coronovirus HKU1,PCR Not Detected (NotDetected); Human Metapneumovirus Not Detected (NotDetected); Influenza A, PCR Not Detected (NotDetected); Influenza AH1, 2009 Not Detected (NotDetected); Influenza AH1, PCR Not Detected (NotDetected); Influenza AH3,PCR Not Detected (NotDetected); Influenza B, PCR Not Detected (NotDetected); Mycoplasma Pneumoniae, PCR Not Detected (NotDetected); Parainfluenza 1, PCR Not Detected (NotDetected); Parainfluenza 2, PCR Not Detected (NotDetected); Parainfluenza 3, PCR Not Detected (NotDetected); Parainfluenza 4, PCR Not Detected (NotDetected); Respiratory Syncytial Virus Not Detected (NotDetected); Rhinovirus/Enterovirus Not Detected (NotDetected)
== END 2024-06-07 23:59 | disposition home or self-care (01) ==
LOC: LAB.DROPOF 06-08 08:35
PROVIDERS: PCP Student in an Organized Health Care Education/Training Program; Visit Provider Student in an Organized Health Care Education/Training Program
DX: J06.9 Acute upper respiratory infection, unspecified (principal); J02.9 Acute pharyngitis, unspecified
CPT/HCPCS: 87070; 87633

== ENCOUNTER 2024-06-16 23:15 | Observation (INO) | payer OTHER, SELFPAY ==
[2024-06-16 23:20] VITALS: BP 121/89; PULSE 84; RESP 24; TEMP 37; O2SAT 99; BMI 25.7
[2024-06-16] MEDS: ACETAMINOPHEN 500MG TAB 500 MG PO (23:30)
[2024-06-16 23:46] LABS: Basophils # 0.1 K/mm3 (0-0.2); Basophils % 0.6 % (0.1-2.0); Eosinophils # 0.1 K/mm3 (0.0-0.4); Eosinophils % 0.5 % (0.1-12.0); Hematocrit 41.7 % (37.0-47.0); Hemoglobin 14.1 g/dL (12.2-16.2); Lymphocytes # 1.8 K/mm3 (0.7-4.5); Mean Corpuscular HGB Conc 33.9 g/dL (31.8-35.4); Mean Corpuscular Hemoglobin 30.9 pg (27.0-31.2); Mean Corpuscular Volume 91.3 fl (81-99); Mean Platelet Volume 8.9 fl (7.4-10.4); Monocytes # 0.4 K/mm3 (0.1-1.0); Monocytes % 2.8 % (1.7-9.3); Neutrophils # 10.4 K/mm3 (1.8-7.8); Neutrophils % 82.1 % (37.0-80.0); Platelet Count 327 K/mm3 (142-424); Red Blood Count 4.57 M/mm3 (4.20-5.40); Red Cell Distribution Width 12.7 % (11.5-17.5); White Blood Count 12.7 K/mm3 (4.8-10.8)
[2024-06-16 23:53] LABS: Albumin Level 4.4 g/dl (3.5-5.0); Chloride 104 mmol/L (98-107); Sodium 134 mmol/L (136-145)
[2024-06-16 23:54] LABS: Potassium 3.5 mmoL/L (3.5-5.1)
[2024-06-16 23:56] LABS: Alanine Aminotransferase 24 U/L (12-78); Albumin/Globulin Ratio 1.5 (1.1-1.8); Alkaline Phosphatase 64 U/L (38-126); Anion Gap 11.5 mEq/L (5-15); Aspartate Amino Transferase 36 U/L (14-36); Blood Urea Nitrogen 6 mg/dl (7-17); Carbon Dioxide 22 mmol/L (22.0-30.0); Creatinine Clearance Estimated 147 mL/min (50-200); Estimated Glomerular Filt Rate 117 ml/min (>60); GFR (African American) 142 ML/MIN (>60); Total Protein,Serum 7.4 g/dl (6.3-8.2)
[2024-06-16 23:57] LABS: Glucose 107 mg/dl (74-100)
[2024-06-16] MEDS: IBUPROFEN 600 MG TABLET PO (23:57)
[2024-06-17] VITALS (24 sets, daily range): BP systolic 81–140; BP diastolic 45–90; PULSE 59–88; RESP 15–19; TEMP 36.4–36.8; O2SAT 97–100; BMI 27.6
[2024-06-17 00:14] LABS: HIV (1&2) Antibody Rapid NONREACTIVE (NONREACTIVE)
--- NOTE | 2024-06-17 00:22 | PC.NURSE ---
Dr. Dre burris for ED doctor
--- NOTE | 2024-06-17 00:23 | PC.NURSE ---
Dr. Erickson on phone with ED doctor at this time
[2024-06-17 00:31] LABS: Microscopic, Urine URINE MICROSCOPIC (MICROSCOPIC)
[2024-06-17 00:33] LABS: Appearance,Urine CLEAR (Clear); Bilirubin,Urine Negative (Negative); Blood, Urine 2+ (Negative); Color,Urine YELLOW (Yellow); Glucose,Urine (UA) Negative (Negative); Ketones,Urine Negative (Negative); Leukocyte Esterase,Urine Negative (Negative); Nitrate,Urine Negative (Negative); Protein,Urine Negative (Negative); Urobilinogen,Urine 0.2 EU/dl (0.2)
--- NOTE | 2024-06-17 00:35 | ED_ITS ---
Discharge Plan Disposition Patient Disposition: Admitted Condition: Fair Chief Complaint: Vaginal Bleeding Clinical Impressions Clinical Impression: Vaginal bleeding affecting early , Pelvic pain Discharge ED Provider: Flori Araujo Adult HPI General Chief complaint: Vaginal Bleeding Stated complaint: vaginal bleeding Time Seen by Provider: 06/16/24 23:26 Mode of Arrival: EMS Source of Information: Patient Limitations: No Limitations Description of Symptoms (Recalled from ER Triage Doc. by RN): Pt has had some vaginal bleeding during the 10 weeks of her today worse bleeding using a pad an hour and having severe pelvic pain. History of Present Illness HPI narrative: 28-year-old female G5, P3 with known live intrauterine approximately 10 weeks with known subchorionic hemorrhage presents to the ER with pelvic pain and vaginal bleeding. Patient states she has had intermittent bleeding throughout her , she had an ultrasound in May 31 which showed subchorionic hemorrhage. I reviewed this ultrasound which demonstrated live intrauterine approximately 7 weeks at that time, no ectopic, subchorionic hemorrhage present. Patient reports she started having cramping and mild vaginal bleeding around 6 PM, it subsided but around 8 PM it significantly worsened again, she passed a clot, and took 1000 mg Tylenol at that time. She states her pain is uncontrollable, she is tearful secondary to the pain. She states she has soaked through 3 pads since 6 PM that is approximately 1 pad every 2 hours. Review of labs demonstrates patient is a be positive, she states she has never received RhoGAM. She denies dysuria or hematuria, no fevers, chills, chest pain, difficulty breathing, she has had nausea throughout her , no dizziness or headache. Related Data Home Medications ?Medication ?Instructions ?Recorded ?Confirmed desvenlafaxine succinate 25 mg 25 mg PO DAILY 04/25/24 06/07/24 tablet,extended release 24 hr dextroamphetamine-amphetamine ER 20 mg PO DAILY 04/25/24 06/07/24 20 mg 24hr capsule,extend release (Adderall XR) levonorgestrel 0.1 mg-ethinyl 1 tab PO DAILY 04/25/24 06/07/24 estradiol 20 mcg chewable tablet (Tyblume) Previous Rx's ?Medication ?Instructions ?Recorded albuterol sulfate 90 mcg/actuation 1 inh inhalation QID PRN shortness 06/07/24 aerosol inhaler (Ventolin HFA) of breath or wheezing #6.7 grams promethazine 12.5 mg tablet 12.5 mg PO TID PRN nausea and 06/07/24 vomiting #10 tabs Allergies Allergy/AdvReac Type Severity Reaction Status Date / Time metoclopramide (From REGLAN) Allergy Mild Verified 06/07/24 09:49 montelukast (From SINGULAIR) Allergy Mild Verified 06/07/24 09:49 hydrocodone AdvReac Verified 06/07/24 09:49 [facility] Disclaimer: The information contained in this section may have been updated after the patient was seen, as this information can be updated by other users. 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 Depression Migraine Asthma Anxiety High risk sexual behavior Surgical History History of tonsillectomy and adenoidectomy History of foot surgery History of dilatation and curettage History of breast augmentation History of wisdom tooth extraction History of section History of cholecystectomy Family History Other No significant family history Social History Smoking Status: Former smoker tobacco type: cigarettes packs per day: 1 second hand exposure: No alcohol intake: never substance use type: denies use current occupational status: employed Travel in the last 8 weeks: None household members: significant other and children housing: house number of children: 2 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/hazards: No caffeine: Yes Other Medical History Have you received the Flu Vaccine for this season: No Have you received the Pneumonia Vaccine: No ROS Obtained: Yes Systems reviewed as appropriate & no additional complaints except as documented ROS per HPI Physical Exam General General appearance: alert and in no apparent distress Head Head exam: atraumatic and normocephalic Eye Eye exam: Present PERRL and EOMI ENT ENT exam: Present mucous membranes moist Neck Neck exam: Present normal inspection and full ROM Chest Chest inspection: Present symmetric chest wall rise Respiratory Respiratory exam: Present normal lung sounds bilaterally; Absent respiratory distress, wheezes or stridor Cardiovascular Cardiovascular exam: Present regular rate and normal rhythm Abdominal Exam Abdominal exam: Present soft and tenderness (Suprapubic); Absent distention, guarding, rebound or rigidity Extremities Exam Extremities exam: Present full ROM; Absent edema Neurological Exam Neurological exam: Present alert and oriented X3; Absent motor sensory deficit Psychiatric Psychiatric exam: Present normal affect and normal mood Skin Skin exam: Present warm and dry Medical Decision Making Medical Records Medical records reviewed: Yes I reviewed the patient's medical records. Screening: Per USPSTF and CDC recommendations, given the prevalence of disease in our region, it is our hospital?s policy to screen for HIV and viral Hepatitis for all patients aged 18 and over and those with ongoing risk factors. MR Comment: See HPI Issac Inquiry Pt receiving controlled substance: No Vital Signs: 06/16/24 23:20 06/17/24 01:56 Temperature 98.6 F 97.8 F Temperature Source Oral Pulse Rate 67 Pulse Rate [Right Brachial] 84 Respiratory Rate 24 18 Blood Pressure 130/90 Blood Pressure [Right Arm] 121/89 Blood Pressure Mean [Right Arm] 99 Blood Pressure Source [Right Arm] Automatic Cuff Blood Pressure Position [Right Arm] Supine 02 Sat by Pulse Oximetry 99 Oxygen Delivery Method Room Air Room Air Lab Data Lab Results 06/16/24 23:03: WBC 12.7 H, RBC 4.57, Hgb 14.1, Hct 41.7, MCV 91.3, MCH 30.9, MCHC 33.9, RDW 12.7, Plt Count 327, MPV 8.9, Neut % (Auto) 82.1 H, Lymph % (Auto) 14.0, [place] % (Auto) 2.8, Eos % (Auto) 0.5, Baso % (Auto) 0.6, Neut # (Auto) 10.4 H, Lymph # (Auto) 1.8, [place] # (Auto) 0.4, Eos # (Auto) 0.1, Baso # (Auto) 0.1, Sodium 134 L, Potassium 3.5, Chloride 104, Carbon Dioxide 22, Anion Gap 11.5, BUN 6 L, Creatinine 0.60, Estimated Creat Clear 147, Estimated GFR 117, Est GFR ( Amer) 142, Glucose 107 H, Calcium 9.0, Total Bilirubin 1.0, AST 36, ALT 24, Alkaline Phosphatase 64, Total Protein 7.4, Albumin 4.4, Globulin 3.0, Albumin/Globulin Ratio 1.5, HCG, Quant [id number] H 12/04/24 23:24: HIV 1&2 Antibody Rapid Nonreactive, Blood Type AB Positive 06/17/24 00:20: Urine Color Yellow, Urine Appearance Clear, Urine pH 6.0, Ur Specific [place] 1.020, Urine Protein Negative, Urine Glucose (UA) Negative, Urine Ketones Negative, Urine Blood 2+ A, Urine Nitrate Negative, Urine Bilirubin Negative, Urine Urobilinogen 0.2, Ur Leukocyte Esterase Negative, Urine RBC 20-50, Urine WBC 3-5, Ur Squamous Epith Cells 3-5, Urine Bacteria 1+ 06/16/24 23:03 06/16/24 23:03 Orders (Tests/Meds): ED MEDICATIONS Discontinued Medications Generic Name Dose Route Start Last Admin Trade Name Freq PRN Reason Stop Dose Admin Acetaminophen 500 mg 06/16/24 23:27 06/16/24 23:30 Acetaminophen 500mg Tab PO 06/16/24 23:28 500 mg ONCE ONE Administration Tranexamic Acid 1,000 mg/ 260 mls @ 32.5 mls/hr 06/17/24 01:43 06/17/24 01:51 Sodium Chloride IV 06/17/24 01:44 32.5 mls/hr ONCE ONE Administration Ibuprofen 600 mg 06/16/24 23:45 06/16/24 23:57 Ibuprofen 600 Mg Tablet PO 06/16/24 23:46 600 mg ONCE ONE Administration Oxycodone HCl 5 mg 06/17/24 00:34 06/17/24 00:41 Oxycodone 5mg Immediate Release Tablet PO 06/17/24 00:35 5 mg ONCE ONE Administration ORDERS Category Date Time Status ABO/RH Type Stat BBK 06/16/24 23:24 Completed POCUS Point of Care (ER Only) Stat Exams 06/16/24 23:26 Completed Beta HCG, Quant [HCG,Quantitative] Stat Lab 06/16/24 23:03 Completed CBC w/Auto Diff [Complete Blood Count Auto Diff] Stat Lab 06/16/24 23:03 Completed CMP [Comprehensive Metabolic Panel] Stat Lab 06/16/24 23:03 Completed HIV (1&2) Antibody Rapid Stat Lab 06/16/24 23:24 Completed Urinalysis and Microscopic Stat Lab 06/17/24 00:20 Completed Medical Decision Narrative: In summary, this 28-year-old female 10 weeks presents to the emergency department today with vaginal bleeding pelvic cramping, soaking through 1 pad every 2 hours. On initial evaluation patient is hemodynamically stable, afebrile, clearly in pain but nontoxic, tenderness to palpation of the suprapubic area without rebound or guarding, nonacute abdomen, no CVA tenderness. Differential diagnosis includes but is not limited to urinary tract infection, I considered viable , I considered ectopic however patient has already had transvaginal ultrasound which did not demonstrate this so I am not concerned for ectopic, I considered the possibility of miscarriage, anemia. Based on these concerns, I ordered serum labs, quantitative hCG, ABO/Rh, urine studies, and I performed [id number] ultrasound. [id number] ultrasound personally performed and interpreted does not demonstrate obvious gestational sac or live intrauterine however there are blood products within the uterus which could be obscuring my view. There was a small amount of pelvic free fluid appreciated. See procedure note for further details. After initially evaluating the patient and performed [id number] ultrasound, I called OB on-call and discussed this case with Dr. Erickson because patient was having severe pain. She stated the small amount of pelvic free fluid was likely physiologic and she was not concerned about this since patient has previous ultrasound that did not show ectopic. She states she is also concerned for possible miscarriage, she recommended Tylenol, hydrocodone, ibuprofen for pain. Patient is already taken Tylenol, ibuprofen administered. Patient reports severe migraines with hydrocodone and refused this medication, Dr. Erickson stated it would be okay for the patient to take oxycodone. She stated if the patient's labs are reassuring and her pain is controlled that she would be appropriate for outpatient follow-up with their office. 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 Patient declined TVUS. Patient received ibuprofen, oxycodone in the ER. Labs reviewed demonstrate mild leukocytosis with WBC 12.7, nonspecific, nonactionable, hemoglobin normal at 14.1, platelets normal, trace hyponatremia which is nonactionable, kidney function reassuring, CMP nonactionable. Quantitative hCG greater than 116,000. UA with RBCs but no convincing findings of infection, nitrate negative. No UTI treatment is being administered at this time On reassessment, patient's pain has improved, however she started bleeding quite briskly. Patient saturated a large pad in less than 1/2-hour. Her hemodynamics remained stable. I contacted Dr. Erickson again and discussed this case, she recommended TXA be administered for bleeding and that the patient be admitted for continued monitoring. She stated transvaginal ultrasound does not have to be ordered at this time, she will have the OB nurses do QBL measuring and if her bleeding increases, then patient will receive transvaginal ultrasound. I discussed these recommendations with the patient, she is agreeable to admission at this time. Patient admitted to OB in stable condition for concerns of heavy bleeding and possible miscarriage. Procedures Miscellaneous Procedure Procedure Performed: Limited OB ultrasound Indication: Pelvic pain, vaginal bleeding, previously known live intrauterine Identified structures: Uterus, bilateral adnexa, pouch of [place] Findings: Uterus: No definitive IUP however exam limited by blood products in the uterus, I did not visualize a gestational sac heart rate not appreciated Right adnexa: Normal Left adnexa: Normal Cul de sac: Trace free fluid Impression: Intrauterine not obviously appreciated, unable to visualize heart rate, no ectopic -Free fluid: Trace Images were saved to permanent archive The study was technically adequate CPT Transabdominal: 55848-82 This study was performed by me, and I personally interpreted all images/videos. Based on my clinical judgement, these images were adequate and did not necessitate further imaging. Critical Care Critical Care Time Critical Care Time: No
[2024-06-17] MEDS: OXYCODONE 5MG IMMEDIATE RELEASE TABLET 5 MG PO (00:41)
[2024-06-17 00:42] LABS: HCG,Quantitative 116270 mIU/ml (0-5.42)
[2024-06-17 00:47] LABS: Bacteria,Urine 1+ /lpf; RBC,Urine 20-50 #/hpf (0-3)
--- NOTE | 2024-06-17 01:37 | PC.NURSE ---
pad and chux changed due to heavy vaginal bleeding
[2024-06-17] MEDS: TRANEXAMIC ACID 1,000 MG in 0.9 % SODIUM CHLORIDE 250 ML 32.5 MG IV (01:51)
--- NOTE | 2024-06-17 04:37 | US_ITS ---
PROCEDURE INFORMATION: Exam: US , Transvaginal Exam date and time: 06/17/2024 7:31 AM Age: 28 years old Clinical indication: Lmp or gestational age (in weeks): 9w5d; Antepartum complications; Bleeding; ; Additional info: Vaginal bleeding LABS AND CLINICAL REPORTS: Gestational age (Established): 9 w 0 d Estimated due date (Established): 01/20/2025 TECHNIQUE: Imaging protocol: Real-time transvaginal obstetrical ultrasound of the maternal pelvis with image documentation. Transvaginal imaging was used for better evaluation of the fetus, adnexa, and/or cervix. COMPARISON: US OB <= 14 WEEKS FETUS 05/31/2024 12:51 PM FINDINGS: Gestation: The gestational sac and fetus have migrated to the lower uterine segment. No heart tones detected. BIOMETRY: Gestational age (AUA): 10 w 1 d Estimated due date (AUA): 01/12/2025 Mean sac diameter: 7.67 cm. [place] rump length (CRL): 27.79 mm. EGA (CRL) is 9 w 4 d MATERNAL: Right ovary/adnexa: Right ovary measures 6.02 cm x 5.15 cm x 4.04 cm. Right ovarian volume is 65.58 mL. There is a right ovarian cyst measuring 4 x 3.7 cm. No further follow-up needed. IMPRESSION: Nonviable fetus. The gestational sac has migrated caudally to the lower uterine segment. Recommend correlation.
--- NOTE | 2024-06-17 08:07 | HMH.PHAINT1 ---
Pharmacy Intervention Comments: MEDICATION RECONCILIATION COMPLETED ON PATIENT USING EXTERNAL FILL HISTORY FROM PHARMACY, THERESA REPORT, AND LIST FROM PCP OFFICE. -SOFIA CHERYD
--- NOTE | 2024-06-17 08:41 | EXP.HP ---
History of Present Illness *Admission Date: 06/17/24 *Reason for visit:: incomplete *History of present illness: Keyla De La Cruz is a 28yo who presented to the ED with cramping and heavy vaginal bleeding. She was noted for be having of miscarriage. Reports she tooks a medication at 6weeks but following taking the medication the fetus was noted to have cardiac activity on US and she didnt take any additional medications. Overnight her vitals have been stable but she has had significant bleeding. At this time bleeding is stable. Reports she has been having cramps but they are not constant [facility] Disclaimer: The information contained in this section may have been updated after the patient was seen, as this information can be updated by other users. 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 Depression Migraine Asthma Anxiety High risk sexual behavior Surgical History History of tonsillectomy and adenoidectomy History of foot surgery History of dilatation and curettage History of breast augmentation History of wisdom tooth extraction History of section History of cholecystectomy Family History Other No significant family history Social History Smoking Status: Former smoker tobacco type: cigarettes packs per day: 1 second hand exposure: No alcohol intake: never substance use type: denies use current occupational status: employed Travel in the last 8 weeks: None household members: significant other and children housing: house number of children: 2 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 Denies nausea, vomiting. Genitourinary: Denies dysuria and incontinence. endorses vaginal bleeding Musculoskeletal: Denies shoulder pain and back pain Neurological: Denies change in speech or headaches Meds Home Medications and Allergies Home Medications ?Medication ?Instructions ?Recorded ?Confirmed ?Type desvenlafaxine succinate 25 mg 25 mg PO HS 04/25/24 06/17/24 History tablet,extended release 24 hr dextroamphetamine-amphetamine ER 20 mg PO DAILY 04/25/24 06/17/24 History 20 mg 24hr capsule,extend release (Adderall XR) levonorgestrel 0.1 mg-ethinyl 1 tab PO DAILY 04/25/24 06/17/24 History estradiol 20 mcg chewable tablet (Tyblume) albuterol sulfate 90 mcg/actuation 1 inh inhalation QIDP PRN 06/17/24 06/17/24 History aerosol inhaler (Ventolin HFA) shortness of breath or wheezing promethazine 12.5 mg tablet 12.5 mg PO TIDP PRN nausea and 06/17/24 06/17/24 History vomiting New Prescriptions to Start Prescriptions: Allergies Allergy/AdvReac Type Severity Reaction Status Date / Time metoclopramide (From REGLAN) Allergy Mild Verified 06/07/24 09:49 montelukast (From SINGULAIR) Allergy Mild Verified 06/07/24 09:49 hydrocodone AdvReac Verified 06/07/24 09:49 Exam Data for Last 24 hours Vital signs and Labs for Last 24 Hours: Temp Pulse Resp BP Pulse Ox O2 Del Method 97.8 F 64 18 140/81 98 Room Air 06/17/24 02:27 06/17/24 02:27 06/17/24 02:27 06/17/24 02:27 06/17/24 02:27 06/17/24 02:27 Laboratory Results - last 24 hr 06/16/24 23:03: WBC 12.7 H, RBC 4.57, Hgb 14.1, Hct 41.7, MCV 91.3, MCH 30.9, MCHC 33.9, RDW 12.7, Plt Count 327, MPV 8.9, Neut % (Auto) 82.1 H, Lymph % (Auto) 14.0, [place] % (Auto) 2.8, Eos % (Auto) 0.5, Baso % (Auto) 0.6, Neut # (Auto) 10.4 H, Lymph # (Auto) 1.8, [place] # (Auto) 0.4, Eos # (Auto) 0.1, Baso # (Auto) 0.1, Sodium 134 L, Potassium 3.5, Chloride 104, Carbon Dioxide 22, Anion Gap 11.5, BUN 6 L, Creatinine 0.60, Estimated Creat Clear 147, Estimated GFR 117, Est GFR ( Amer) 142, Glucose 107 H, Calcium 9.0, Total Bilirubin 1.0, AST 36, ALT 24, Alkaline Phosphatase 64, Total Protein 7.4, Albumin 4.4, Globulin 3.0, Albumin/Globulin Ratio 1.5, HCG, Quant [id number] H 06/16/24 23:24: HIV 1&2 Antibody Rapid Nonreactive, Blood Type AB Positive 06/17/24 00:20: Urine Color Yellow, Urine Appearance Clear, Urine pH 6.0, Ur Specific [place] 1.020, Urine Protein Negative, Urine Glucose (UA) Negative, Urine Ketones Negative, Urine Blood 2+ A, Urine Nitrate Negative, Urine Bilirubin Negative, Urine Urobilinogen 0.2, Ur Leukocyte Esterase Negative, Urine RBC 20-50, Urine WBC 3-5, Ur Squamous Epith Cells 3-5, Urine Bacteria 1+ I & O for Last 24 hours: Intake & Output 06/14/24 06/15/24 06/16/24 06/17/24 23:59 23:59 23:59 23:59 Weight 150 lb 156 lb *Routine HEENT Exam Head: Present normocephalic and atraumatic Eye: Present EOMI ENT: Present mucous membranes moist *Routine Respiratory Exam Respiratory: Present normal respiratory effort, able to speak in complete sentences and symmetric chest movement *Routine Cardiovascular Exam Cardiovascular: Present RRR *Routine Abdominal Exam Abdominal: Present soft and normoactive bowel sounds; Absent tenderness *Routine Rectal Exam Rectal:: deferred *Routine Genitalia Exam Genitalia:: normal female Assessment and Plan *Assessment and plan (1) Incomplete : Status: Acute Category: Medical Code(s): O03.4 - Incomplete spontaneous without complication Plan I discussed the ultrasound findings with the patient. I offered her a trial of medication management versus surgical management and she states that she prefers to proceed with surgical management as this is what she needed for her previous loss. Keyla is a appropriately tearful today. I did discuss that given the fact that she took medication it does make her uterus softer and could increase her risk of uterine perforation. I discussed the complications of the surgery to include uterine perforation, bleeding, and infection. I discussed the sequela if uterine perforation were to occur to include diagnostic laparoscopy and possible bowel injury or injury to the surrounding structures. The patient voiced understanding and stated that she desired to proceed with D&C. All questions and concerns were addressed to the patient's satisfaction.
[2024-06-17] MEDS: LACTATED RINGERS 1000ML 500 ML 999 ML IV (12:08)
[2024-06-17] MEDS: ACETAMINOPHEN 500MG TAB 1000 MG PO (12:20)
[2024-06-17 12:33] LABS: Basophils # 0.1 K/mm3 (0-0.2); Basophils % 0.8 % (0.1-2.0); Monocytes # 0.4 K/mm3 (0.1-1.0); Red Cell Distribution Width 13.1 % (11.5-17.5)
[2024-06-17 12:45] LABS: Eosinophils # 0.3 K/mm3 (0.0-0.4); Eosinophils % 2.7 % (0.1-12.0); Hematocrit 32.3 % (37.0-47.0); Lymphocytes # 2.1 K/mm3 (0.7-4.5); Lymphocytes % 23.9 % (10-50); Mean Corpuscular HGB Conc 33.7 g/dL (31.8-35.4); Mean Corpuscular Hemoglobin 30.2 pg (27.0-31.2); Mean Corpuscular Volume 89.6 fl (81-99); Monocytes % 4.5 % (1.7-9.3); Neutrophils # 6.1 K/mm3 (1.8-7.8); Platelet Count 272 K/mm3 (142-424); White Blood Count 8.9 K/mm3 (4.8-10.8)
[2024-06-17 12:48] LABS: Hemoglobin 10.9 g/dL (12.2-16.2)
--- NOTE | 2024-06-17 13:38 | EXP.ANES.CKL ---
[facility] Disclaimer: The information contained in this section may have been updated after the patient was seen, as this information can be updated by other users. 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 Depression Migraine Asthma Anxiety High risk sexual behavior Surgical History History of tonsillectomy and adenoidectomy History of foot surgery History of dilatation and curettage History of breast augmentation History of wisdom tooth extraction History of section History of cholecystectomy Family History Other No significant family history Social History Smoking Status: Former smoker tobacco type: cigarettes packs per day: 1 second hand exposure: No alcohol intake: never substance use type: denies use current occupational status: employed Travel in the last 8 weeks: None household members: significant other and children housing: house number of children: 2 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/hazards: No caffeine: Yes [facility] Anesthesia Checklist Patient Identification Patient Identification: Arm Band Structural Data Admitted From: Home Planned Operative Procedure/s: D&C with Can Suction Consent for Planned Operative Procedure(s) Verified: Yes Verified Documents: Surgical Consent and History and Physical NPO Status Verified Time NPO: 00:00 Additional verifications Anesthesia Reactions: No Hx Blood Transfusions: No Blood Transfusion Reaction: Yes Airway Assessment Mallampati Score:: Class II C-Spine Mobility Assessed: Yes TMJ Mobility Assessed: Yes Anesthesia Plan Anesthesia Risk discussed: Yes Anesthesia Plan: Verified ASA Class: II Anesthesia Type: General
--- NOTE | 2024-06-17 13:46 | US_ITS ---
Fill Technician: PROCEDURE: US OB <= 14 WEEKS FETUS CLINICAL INDICATION: US in OR COMPARISON: US US OB TRANSVAGINAL from 05/17/2024 US US OB <= 14 WEEKS FETUS from 05/31/2024 US US OB TRANSVAGINAL from 06/17/2024 FINDINGS: Transvaginal sonographic images of the pelvis were obtained. From her last menstrual period she is 9 weeks 0 days. An intrauterine gestational sac is present with a pole with a crown-rump length of 27.8 mm This correlates to a gestational age of 9 weeks 5 days. heart tones are absent with the fetus and gestational sac in the lower uterine segment. There is a in 5.2 cm simple cyst in the right ovary. A 2nd transabdominal ultrasound performed in the operating room shows a live Eliot suction dilation and curettage. The entire uterine contents are removed. A Boles catheter has been placed in the uterine cavity. IMPRESSION: 1. Transvaginal images reveal a missed with fetus and gestational sac in the lower uterine segment and cervix. 2. heart tones not seen today. 3. There is a 5.2 cm simple cyst in the right ovary. 4. Complete removal of the uterine contents by for suction and placement of Boles catheter in the uterine cavity. Dictated by: Jesse Arcos MD 06/18/2024 07:03 Jesse Arcos MD in OV 06/18/2024 07:06
[2024-06-17] MEDS: DOXYCYCLINE HYCL 100 MG TABLET 200 MG PO (13:52)
--- NOTE | 2024-06-17 14:59 | EXP.ANES.I ---
[facility] Anesthesia Record Part I Anesthesia Record I Intake, IV Amount: 1,000 Hydration: Adequate Estimated blood loss (mL): 400 Urine output (mL): 0 Blood Products used (#): none Blood Pressure: 112/58 SaO2: 100 Pulse Rate: 84 Airway Patency: Patent Respiratory Rate: 16 Temperature: 97.6 F Patient is:: Drowsy and Stable Stable to PACU at:: 14:55
[2024-06-17] MEDS: HYDROMORPHONE 2MG/ML SYRINGE 0.5 MG IV ×2 (15:14→15:19)
[2024-06-17] MEDS: MEPERIDINE 25MG/ML 1ML SYRINGE 25 MG IV (15:26)
--- NOTE | 2024-06-17 16:15 | PC.NURSE ---
Uterine Balloon collection bag emptied 20ml of blood noted.
[2024-06-17] MEDS: IBUPROFEN 400 MG TABLET 800 MG PO (16:24)
--- NOTE | 2024-06-17 16:30 | EXP.OP.NOTE ---
Date of procedure: 06/17/24 Pre-op Diagnosis:: 1. 10 weeks incomplete 2. Desires surgical management 3. Rh+ Post-op Diagnosis:: 1. 10 weeks incomplete 2. Desires surgical management 3. Rh+ Procedure performed:: Dilation and suction curettage with Ultrasound guidance Surgeon:: Lelia Erickson DO HEATING AND VENTILATION ENGINEER:: Manpreet Person Anesthesia: GETA Estimated blood loss (mL): 400 Clinical Note:: Complications: hemorrhage Operative findings:: Normal-appearing external genitalia. fetus intact and in the vagina. intraoperative hemorrhage, humphries catheter placed. Operative note:: Keyla De La Cruz is a 28-year-old who presented with a 10-week incomplete . Expectant, medical, and surgical management were explained to the patient and she elected to undergo surgical management. She was consented for suction D&C. Risk, benefits, and alternatives were reviewed. Risk including but not limited to uterine perforation, bleeding, and infection were discussed. given the high risk for uterine perforation procedure was completed under ultrasound guidance Medications: Doxycycline 200 mg and 20U Pitocin The patient was taken back to the operating room where anesthesia was administered. She was placed in the dorsolithotomy position with yellowfin stirrups and sterilely prepped and draped with Betadine in the usual fashion. In and out catheter was used to drain her bladder. Weighted speculum and a right angle retractor was used to visualize the cervix. The intact fetus was noted to be in the vagina and removed, placed in a specimen cup to be sent to pathology. A single-tooth tenaculum applied to the anterior lip cervix. Cervix was adqeuately dilated and connected to a #10 rigid suction curette. The suction curette was inserted to the fundus with US guidance, hooked to suction, and twisted in a clockwise fashion until the curette was removed. Products noted in the tubing system. This process was repeated until all uterine contents were removed and a thin uterine stripe was noted. There was significant bleeding noted from the cervical os and pass with a #5 sharp curette was made with US guideance no additional products were noted. One additional pass was made with the suction curette but again no products only blood noted. Decision was made to place a humphries balloon and it was filled with 30mL of sterile saline to hemostasis. Following this careful attention was given to the bleeding from the cervical os and in the humphries bag was noted to be minimal. The single-tooth tenaculum was removed and hemostasis was noted. The speculum was removed and this completed the procedure. The patient tolerated the procedure well and all instrument and sponge counts were correct x2. The patient was awakened from general anesthesia and taken to the recovery room in a stable condition. The patient will be monitored overnight to ensure bleeding control and pain control. Condition: stable Disposition: floor Specimens:: Products of conception Complications:: hemorrhage
[2024-06-17 17:04] LABS: Basophils % 0.3 % (0.1-2.0); Eosinophils # 0.1 K/mm3 (0.0-0.4); Eosinophils % 0.7 % (0.1-12.0); Hematocrit 30.9 % (37.0-47.0); Hemoglobin 10.2 g/dL (12.2-16.2); Lymphocytes % 6.2 % (10-50); Mean Corpuscular Hemoglobin 29.9 pg (27.0-31.2); Mean Corpuscular Volume 90.6 fl (81-99); Mean Platelet Volume 8.9 fl (7.4-10.4); Monocytes # 0.3 K/mm3 (0.1-1.0); Monocytes % 1.6 % (1.7-9.3); Neutrophils % 91.2 % (37.0-80.0); Platelet Count 275 K/mm3 (142-424); Red Blood Count 3.41 M/mm3 (4.20-5.40); Red Cell Distribution Width 12.9 % (11.5-17.5); White Blood Count 16.4 K/mm3 (4.8-10.8)
[2024-06-17 17:10] LABS: MANUAL DIFFERENTIAL MANUAL DIFFERENTIAL (MANUAL DIFF)
[2024-06-17] MEDS: LACTATED RINGERS 1000ML 500 ML IV (17:35)
[2024-06-17 18:10] LABS: Eosinophils % 1 % (0-3); Lymphocytes % 9 % (10-50); Monocytes % 2 % (2-9); Neutrophils % 88 % (42-76); Platelet Estimate Normal; RBC Morphology Normal; Total Cells Counted 100
[2024-06-18 04:00] VITALS: BP 101/49; PULSE 71; RESP 17; TEMP 36.8; O2SAT 98
[2024-06-18 08:00] VITALS: BP 102/51; PULSE 68; RESP 16; TEMP 36.8; O2SAT 95
--- NOTE | 2024-06-18 08:26 | P.DS_ITS ---
General Admission date:: 06/17/24 Discharge date: 06/18/24 HPI HPI HPI: Keyla De La Cruz is a 28yo who presented to the ED with cramping and heavy vaginal bleeding. She was noted for be having of miscarriage. Reports she tooks a medication at 6weeks but following taking the medication the fetus was noted to have cardiac activity on US and she didnt take any additional medications. Overnight her vitals have been stable but she has had significant bleeding. At this time bleeding is stable. Reports she has been having cramps but they are not constant Hospital Course Hospital Course Hospital Course: Keyla was admitted for an incomplete . She is POD#1 from a suction D&C with US guidance. There was an intraop hemorrhage managed with a humphries balloon. Her bleeidng is minimal. She endorses dysuria nad back pain this morning. BAck pain controlled with ibuprofen and oxycodone overnight. Will treat for UTI prophylactically. Will DC with anerobic vaginal coverage secondary to having a balloon in situ for several hours. All questions and concerns were addressed to her satisfaction. she has a follow up appt on friday. return precautions reviewed. Exam Data for Last 24 hours Vital signs and Labs for Last 24 Hours: Temp Pulse Resp BP Pulse Ox O2 Del Method 98.3 F 71 17 101/49 L 98 Room Air 06/18/24 04:00 06/18/24 04:00 06/18/24 04:00 06/18/24 04:00 06/18/24 04:00 06/18/24 04:00 Laboratory Results - last 24 hr 06/17/24 12:25: WBC 8.9 D, RBC 3.60 L, Hgb 10.9 L D, Hct 32.3 L, MCV 89.6, MCH 30.2, MCHC 33.7, RDW 13.1, Plt Count 272, MPV 9.0, Neut % (Auto) 68.0, Lymph % (Auto) 23.9, [place] % (Auto) 4.5, Eos % (Auto) 2.7, Baso % (Auto) 0.8, Neut # (Auto) 6.1, Lymph # (Auto) 2.1, [place] # (Auto) 0.4, Eos # (Auto) 0.3, Baso # (Auto) 0.1 06/17/24 16:42: WBC 16.4 H D, RBC 3.41 L, Hgb 10.2 L, Hct 30.9 L, MCV 90.6, MCH 29.9, MCHC 33.0, RDW 12.9, Plt Count 275, MPV 8.9, Neut % (Auto) 91.2 H, Lymph % (Auto) 6.2 L, [place] % (Auto) 1.6 L, Eos % (Auto) 0.7, Baso % (Auto) 0.3, Neut # (Auto) 15.0 H, Lymph # (Auto) 1.0, [place] # (Auto) 0.3, Eos # (Auto) 0.1, Baso # (Auto) 0.0, Total Counted 100, Neutrophils % (Manual) 88 H, Lymphocytes % (Manual) 9 L, Monocytes % (Manual) 2, Eosinophils % (Manual) 1, Platelet Estimate Normal, RBC Morphology Normal I & O for Last 24 hours: Intake & Output 06/15/24 06/16/24 06/17/24 06/18/24 23:59 23:59 23:59 23:59 Intake Total 1000 / 1000 Balance 1000 / 1000 Weight 150 lb 156 lb Constitutional Constitutional: no acute distress *Routine HEENT Exam Head: Present normocephalic ENT: Present mucous membranes moist *Routine Neck Exam Neck: Present supple; Absent lymphadenopathy *Routine Respiratory Exam Respiratory: Present CTA bilaterally *Routine Cardiovascular Exam Cardiovascular: Present RRR *Routine Abdominal Exam Abdominal: Present soft and normoactive bowel sounds; Absent tenderness, distended, rebound or guarding *Routine Exam Comments: vaginal bleeding is minimal. uterus is firm and in the pelvis *Routine Extremities Exam Extremities: Absent cyanosis, clubbing or edema Routine Back/Spine/Pelvis Exam Back/Spine: Present full ROM; Absent CVA tenderness or paraspinal tenderness *Routine Skin Exam Skin: Present warm; Absent rash *Routine Neurological Exam Neurological: Present alert and oriented X3 Results Data Completed and Pending Labs on day of discharge: Labs from last 24 hours 06/17/24 06/17/24 16:42 12:25 WBC 16.4 H D 8.9 D RBC 3.41 L 3.60 L Hgb 10.2 L 10.9 L D Hct 30.9 L 32.3 L MCV 90.6 89.6 MCH 29.9 30.2 MCHC 33.0 33.7 RDW 12.9 13.1 Plt Count 275 272 MPV 8.9 9.0 Neut % (Auto) 91.2 H 68.0 Lymph % (Auto) 6.2 L 23.9 [place] % (Auto) 1.6 L 4.5 Eos % (Auto) 0.7 2.7 Baso % (Auto) 0.3 0.8 Neut # (Auto) 15.0 H 6.1 Lymph # (Auto) 1.0 2.1 [place] # (Auto) 0.3 0.4 Eos # (Auto) 0.1 0.3 Baso # (Auto) 0.0 0.1 Total Counted 100 Neutrophils % (Manual) 88 H Lymphocytes % (Manual) 9 L Monocytes % (Manual) 2 Eosinophils % (Manual) 1 Platelet Estimate Normal RBC Morphology Normal DS: Diagnosis Discharge Diagnosis (1) Incomplete : Status: Acute Code(s): O03.4 - Incomplete spontaneous without complication Meds Home Medications and Allergies Home Medications ?Medication ?Instructions ?Recorded ?Confirmed ?Type desvenlafaxine succinate 25 mg 25 mg PO HS 04/25/24 06/17/24 History tablet,extended release 24 hr dextroamphetamine-amphetamine ER 20 mg PO DAILY 04/25/24 06/17/24 History 20 mg 24hr capsule,extend release (Adderall XR) levonorgestrel 0.1 mg-ethinyl 1 tab PO DAILY 04/25/24 06/17/24 History estradiol 20 mcg chewable tablet (Tyblume) albuterol sulfate 90 mcg/actuation 1 inh inhalation QIDP PRN 06/17/24 06/17/24 History aerosol inhaler (Ventolin HFA) shortness of breath or wheezing promethazine 12.5 mg tablet 12.5 mg PO TIDP PRN nausea and 06/17/24 06/17/24 History vomiting acetaminophen 500 mg tablet 500 mg PO Q6H PRN fever or pain 06/18/24 Rx #30 tabs doxycycline hyclate 100 mg capsule 100 mg PO BID #20 caps 06/18/24 Rx ferrous sulfate 325 mg (65 mg 325 mg PO DAILY #30 tabs 06/18/24 Rx iron) tablet,delayed release ibuprofen 800 mg tablet 800 mg PO Q8H PRN pain #60 tabs 06/18/24 Rx oxycodone 5 mg tablet 5 mg PO Q8H PRN pain #5 tabs 06/18/24 Rx sennosides 8.6 mg tablet (Senna 8.6 mg PO BIDP PRN Constipation 06/18/24 Rx Lax) #60 tabs New Prescriptions to Start Prescriptions: acetaminophen Lelia Erickson doxycycline hyclate Lelia Erickson ferrous sulfate Lelia Erickson ibuprofen Lelia Erickson oxycodone Lelia Erickson sennosides [Senna Lax] Lelia Erickson Allergies Allergy/AdvReac Type Severity Reaction Status Date / Time metoclopramide (From REGLAN) Allergy Mild Verified 06/07/24 09:49 montelukast (From SINGULAIR) Allergy Mild Verified 06/07/24 09:49 hydrocodone AdvReac Verified 06/07/24 09:49 Discharge Plan Disposition Patient Disposition: Home, Self-Care Condition: Good Follow up Plan Follow up with: Lelia Erickson DO [Staff Physician] - Enter time for follow up Prescriptions/Medication Reconciliation: New sennosides [Senna Lax] 8.6 mg Tablet 8.6 mg PO BIDP PRN (Reason: Constipation) Qty: 60 2RF ibuprofen 800 mg tablet 800 mg PO Q8H PRN (Reason: pain) Qty: 60 2RF acetaminophen 500 mg tablet 500 mg PO Q6H PRN (Reason: fever or pain) Qty: 30 3RF ferrous sulfate 325 mg (65 mg iron) tablet,delayed release (DR/EC) 325 mg PO DAILY Qty: 30 3RF oxycodone 5 mg tablet 5 mg PO Q8H PRN (Reason: pain) Qty: 5 0RF doxycycline hyclate 100 mg capsule 100 mg PO BID Qty: 20 0RF Continued dextroamphetamine-amphetamine [Adderall XR] 20 mg capsule,extended release 24hr 20 mg PO DAILY Patient Comments: TAKE ONE CAPSULE BY MOUTH EVERY DAY desvenlafaxine succinate 25 mg tablet extended release 24 hr 25 mg PO HS Patient Comments: TAKE ONE TABLET BY MOUTH EVERY DAY AT BEDTIME FOR DEPRESSION Tyblume 0.1 mg- 20 mcg tablet,chewable 1 tab PO DAILY Patient Comments: TAKE ONE TABLET BY MOUTH DAILY promethazine 12.5 mg tablet 12.5 mg PO TIDP PRN (Reason: nausea and vomiting) albuterol sulfate [Ventolin HFA] 90 mcg/actuation HFA aerosol inhaler 1 inh inhalation QIDP PRN (Reason: shortness of breath or wheezing) Problem Reconciliation Problems Reviewed?: Yes Patient Discharge Instructions ACTIVITY: Continue current activity DIET: regular diet Print Language: Niuean Providers Primary Care Provider: Provider,Referral Admit Provider: Lelia Erickson Attending Provider: Lelia Erickson
[2024-06-18] MEDS: IBUPROFEN 400 MG TABLET 800 MG PO (09:19)
--- NOTE | 2024-06-18 12:11 | EXP.ANES.II ---
[facility] Anesthesia Record Part II Anesthesia Record Part II Discharge Time: 15:35 Destination: Obstetric PACU nurse assessment reviewed?: Yes Patient Condition:: Good Anesthesia Complications:: None Swallowing reflex intact?: Yes Airway Patency: Patent Cyanosis?: No Blood Pressure: 95/55 SaO2: 100 Respiratory Rate: 16 Pulse Rate: 70 Temperature: 98.2 F Mental Status: Alert & Oriented Pain level:: 6 Nausea and/or vomitting:: None Intake, IV Amount: 0 Hydration: Adequate
[2024-06-18 12:12] VITALS: BP 95/55; PULSE 70; RESP 16; TEMP 36.8; O2SAT 100
== END 2024-06-18 10:15 | disposition home or self-care (01) ==
LOC: ER 23:23 → OB 06-17 02:29
PROVIDERS: Admitting Provider Obstetrics & Gynecology; Emergency Provider Emergency Medicine; Visit Provider Obstetrics & Gynecology
PROC: 10D17ZZ Extraction of Products of Conception, Retained, Via Natural or Artificial Opening (ICD-10-PCS; CPT 59812; principal; 2024-06-17 14:00)
DX: O03.4 Incomplete spontaneous abortion without complication (principal); Z87.891 Personal history of nicotine dependence
CPT/HCPCS: 59812; 36415; 76801; 76817; 80053; 81001; 84702; 85007; 85025; 86900; 86901; 87389; G0378; J1100; J1171; J1885; J2175; J2250; J2405; J3010; J7120

== ENCOUNTER 2025-03-22 18:01 | Outpatient (CLI) | payer OTHER, SELFPAY ==
--- OUTSIDE RECORDS SUMMARY | 2025-03-22 18:04 | XMS_ITS | Clinical Summary ---
Author Organization Healthcare Address [address] [place] [address] Care Team Providers Care Stave And Bolt Equalizer Name Role Phone Cait Bourne Primary Care Provider [phone] Allergies Active Allergy Reactions Criticality Noted Date Comments Metoclopramide Headache,Unknown - P atient states they do not know rxn details Low 04/21/2018 Montelukast Other - please docum ent in the comment field,Unknown - Patient states they do not know rxn details Low 04/21/2018 Nose bleeds Medications levonorgestrel-ethi nyl estradiol (Seasonale) 0.15-0.03 MG tablet Take 1 tablet by mouth 1 (one) time each day. 84 tablet 3 2 Active Slow Release Iron 45 MG tablet controlled-release Take by mouth 1 (one) time each day. 4 Active ondansetron ODT (Zofran-ODT) 8 MG disintegrating tablet 1 tablet (8 mg). 4 Active albuterol 108 (90 Base) MCG/ACT inhaler Inhale 2 puffs 4 (four) times a day. Active Active Problems Problem Noted Date Diagnosed Date Menorrhagia with irregular cycle 08/22/2021 Pelvic and perineal pain 08/22/2021 Endometriosis 08/22/2021 Encounters Date Type Department Care Team Description 03/15/2025 Telephone Obstetrics & Gynecology [facility] [place] [address] Guero Farfan MD [facility] Clinical Concern/Question from Last 3 Months Social History Tobacco Use Types Packs/Day Years Used Date Smoking Tobacco: Every Day Smokeless Tobacco: Current Tobacco Cessation:Ready to Q uit: Not Asked; Counseling Given: Not Answered PHQ-2 Answer Date Recorded Patient Health Questionnaire-2 Score 0 11/27/2023 Comments No Sex and Gender Information Value Date Recorded Sex Assigned at Female 04/18/2021 2:07 PM EDT Legal Sex Female 8:13 PM EDT Gender Identity Female 04/18/2021 2:07 PM EDT Sexual Orientation Straight 04/18/2021 2: 07 PM EDT Last Filed Vital Signs Vital Sign Reading Time Taken Comments Blood Pressure 108/69 11/27/2023 10:26 AM EDT Pulse 75 11/27/2023 10:26 AM EDT Temperature 36.2 C (97.2 F) 11/27/2023 10:26 AM EDT Respiratory Rate 14 11/27/2023 10:2 6 AM EDT Oxygen Saturation 98% 11/27/2023 10: 26 AM EDT Inhaled Oxygen Concentration - - Weight 73.9 kg (162 lb 14.7 oz) 024 10:26 AM EDT Height 160 cm (5' 3 ) 11/27/2023 10:26 AM EDT Body Mass Index 28.86 11/27/2023 10:26 AM EDT Plan of Treatment Health Maintenance Due Date Last Done Comments [facility]-HIV Screening 1995 [facility]-Hepatitis C Screening 1993 [facility]-/Child/Adol SDOH Screenings 1995 [facility]-IPV Vaccines (2 of 3 - 4-dose series) 08/25/1997 07/28/1997 [facility]-Varicella Vaccines (1 of 2 - 13+ 2-dose series) 2006 [facility]- SDOH Screenings 2011 [facility]-Adult SDOH Screenings 2011 [facility]-Pap Smear 2014 03/26/2011 HPV Vaccines (1 - 3-dose SCD M series) 2020 [facility]-Cervical Cancer Screening 2023 [facility]-HPV/Cotest 2023 03/26/2011 [facility]-Hepatitis B Vaccines (3 of 3 - 19+ 3-dose series) 09/26/2024 05/05/2024, 03/29/2024 [facility]-Depression Screening 11/26/2024 11/27/2023 [id number]-44 Vaccine ( - season) 2025 [facility]-Influenza Vaccine (#1) 2025 05/05/2024 [facility]-DTaP,Tdap,and Td Vaccine s (4 - Td or Tdap) 10/16/2028 10/16/2018, 09/28/2013, 07/28/1997 [facility]-Zoster Vaccines (1 of 2) 2043 [facility]-Obesity Intervention Completed 11/27/2023 [facility]-HIB Vaccines Aged Out No longer e ligible based on patient's age to complete this topic [facility]-Hepatitis A Vaccines Aged Out No longer eligible based on patient's age to complete this topic [facility]-Pneumococcal Vaccine: Pediatrics (0 to 5 Years) and At-Risk Patients (6 to 49 Years) Aged Out No longer eligible b ased on patient's age to complete this topic [facility]-Rotavirus Vaccines Aged Out No lo nger eligible based on patient's age to complete this topic Procedures Procedure Name Priority Date/Time Associated Diagnosis Comments CYTO DATA CONVERSION Routine 03/26/2011 12:00 AM EDT from Last 3 Months or Most Recently Relevant to Health Maintenance Results * Cytology (03/26/2011 12:00 AM EDT) 03/26/2011 03/27/2011 9:4 0 AM EDT Narrative SUNQUEST - 03/31/2011 9:45 AM EDT [facility] MR #: [id number] [facility] KEYLA DE LA CRUZJoselo [place], [place] [address] 1995 (Age: 15) FW Collect Date: 03/26/2011 00:00 Receipt Date: 03/27/2011 09:40 Page 1 DEPARTMENT OF PATHOLOGY AND LABORATORY MEDICINE CYTOPATHOLOGY REPORT Email: [email or web address] ATTENDING MD/Practitioner: Uri Rangel Jr., Service: OBE Location: [facility] Reported: 03/31/2011 09:45 Collected: 03/26/2011 00:00 INTERPRETATION A. THIN PREP (CERVICAL/VAGINAL): NEGATIVE FOR INTRAEPITHELIAL LESION OR MALIGNANCY. INFLAMMATORY CHANGE. SATISFACTORY FOR EVALUATION; ENDOCERVICAL/ TRANSFORMATION ZONE COMPONENT PRESENT. Slide scanned and imaged by IPPLEX ThinPrep Imaging System with manual review of all selected ritter. Electronically Signed Out By MAGGY Bradshaw (ASCP) MAGGY Ross (ASCP) MAGGY Bradshaw (ASCP) Cervical cytology is a screening test primarily for squamous cancers and precursors and has associated false negative and positive results. New technologies such as liquid based sampling may decrease but will not eliminate all false negative results. Regular screening and follow-up of unexplained clinical signs and symptoms are recommended to minimize false negative results. Please see the ASCCP website (www.asccp.org) for followup recommendations. If HPV testing was requested, correlation with the results is suggested (please call Microbiology at [phone] for results). CLINICAL INFORMATION: Menstrual History: Cyclic Date of Last Menstrual Period: 12/14/10 Other Clinical Conditions: Abnormal pap results elsewhere Date and code not provided If ASCUS and > 24 years of age, HPV/DNA testing requested. Vaginal discharge SPECIMEN DESCRIPTION: A: THIN PREP (CERVICAL/VAGINAL) THIN PREP PROCESS CELLULAR ENHANCEMENT ICD: 795.01 (ASC-US) PAPANICOLAOU SMEAR OF CERVIX W/ATYPICAL SQUAMOUS CELLS OF UNDETERMINED SIGNIFICANCE 625.9 PAIN AND OTHER SYMPTOMS ASSOCIATED WITH FEMALE GENITAL ORGANS F: A; DX IMAGE [id number] SNOMED CODES: A; [id number] M-[id number] M-[id number] M- [id number] In cases where a pathologist has signed out the report, the service has been rendered in part by a resident. The signing pathologist has performed and is responsible for the reported pathologic evaluation. us Historical Provider LAB PATHOLOGY ORDERABLES Fin al Result SUNQUEST from Last 3 Months or Most Recently Relevant to Health Maintenance Insurance [employer] [facility] MEDICAID Care Teams Stave And Bolt Equalizer Relationship Specialty Start Date End Date Cait Bourne PA [address] [place] [address] PCP - General 03/23/21
--- OUTSIDE RECORDS SUMMARY | 2025-03-22 18:04 | XMS_ITS | Encounter Summary ---
Author Organization Healthcare Address [address] [address] Care Team Providers Care City Engineer Name Role Phone Cait Bourne Primary Care Provider [phone] Reason for Visit * Reason Onset Date Comments [facility] Clinical Concern/Question 03/17/2025 Encounter Details Date Type Department Care Team (Late st Contact Info) Description 03/15/2025 Telephone Obstetrics & Gynecology [address] [place] [address] Guero Farfan MD [address] [place] [address] [facility] Clinical Concern/Question Social History Tobacco Use Types Packs/Day Years Used Date Smoking Tobacco: Every Day Smokeless Tobacco: Current PHQ-2 Answer Date Recorded Patient Health Questionnaire-2 Score 0 11/27/2023 Comments No Sex and Gender Information Value Date Recorded Sex Assigned at Female 04/18/2021 2:07 PM EDT Legal Sex Female 8:13 PM EDT Gender Identity Female 04/18/2021 2:07 PM EDT Sexual Orientation Straight 04/18/2021 2: 07 PM EDT documented as of this encounter Miscellaneous Notes * Telephone Encounter - Jahaira Matos RN - 03/17/2025 1:27 PM EDT RN returned pt call. Pt states she is needing sooner appt due to vaginal cyst. Cyst is on left side, has hx of barthonian abscess. Pt denies fever and body aches. Pt endorses having hot flashes and chills. Pt states cyst is painful when sitting rating pain 7/10. Pt states she is having discharge, was yellow but is now clear. Pt unsure if cyst is leaking. Pt scheduled for appt. * Telephone Encounter - Patti Viera - 03/17/2025 12:31 PM EDT Clinical Concern/Question Reason for Call: Returning Jahaira's call. Best contact number: [phone] (mobile) Optimal time of day to reach caller: MIDDAY, before 2 PM Additional comments/information from caller: Please call again. Note: Please do not reply to this message. Follow-up communication and further actions as a result of this message need to be communicated with the patient directly, if the patient is not active onMyChart. If the patient is active on MyChart, they will receive notification of the communication/outcome via [employer]. * Telephone Encounter - Jahaira Matos RN - 03/17/2025 8:45 AM EDT LMOM. Third attempt to contact pt. Task complete * Telephone Encounter - Jahaira Matos RN - 03/16/2025 2:37 PM EDT LMOM. Mychart message sent * Telephone Encounter - Jahaira Matos RN - 03/15/2025 4:23 PM EDT LMOM * Telephone Encounter - Faisal Mott - 03/15/2025 3:28 PM EDT Clinical Concern/Question Reason for Call: pt is asking to be seen sooner than April , she states that she is having a discharge that has no color but has a smell , pt thinks this might be an std , Best contact number: [phone] (mobile) Optimal time of day to reach caller: ANYTIME Additional comments/information from caller: None Note: Please do not reply to this message. Follow-up communication and further actions as a result of this message need to be communicated with the patient directly, if the patient is not active onMyChart. If the patient is active on MyChart, they will receive notification of the communication/outcome via [employer]. documented in this encounter Plan of Treatment Not on file documented as of this encounter Visit Diagnoses Not on filedocumented in this encounter Additional Health Concerns Assessment Noted Time A fall risk assessment has been complete d for the patient 11/27/2023 10:28 AM EDT A Body Mass Index follow-up plan has been documented for the patient 11/27/2023 10:58 AM EDT documented as of this encounter Care Teams City Engineer Relationship Specialty Start Date End Date Cait Bourne PA [address] [place] [address] PCP - General 03/23/21 documented as of this encounter
[2025-03-22 18:34] LABS: Hematocrit 40.1 % (37.0-47.0); Hemoglobin 13.3 g/dL (12.2-16.2); Immature Granulocytes % 0.5 %; Mean Corpuscular HGB Conc 33.2 g/dL (31.8-35.4); Mean Corpuscular Hemoglobin 30.2 pg (27.0-31.2); Mean Corpuscular Volume 90.9 fl (81-99); Nucleated Red Blood Cells % 0 %; Platelet Count 342 K/mm3 (142-424); Red Blood Count 4.41 M/mm3 (4.20-5.40); Red Cell Distribution Width-SD 43.9 fL; White Blood Count 14.0 K/mm3 (4.8-10.8)
[2025-03-22 18:48] LABS: Albumin Level 4.4 g/dl (3.5-5.0); Chloride 106 mmol/L (98-107); Sodium 138 mmol/L (136-145)
[2025-03-22 18:49] LABS: Potassium 3.8 mmoL/L (3.5-5.1)
[2025-03-22 18:51] LABS: Alanine Aminotransferase 13 U/L (12-78); Aspartate Amino Transferase 26 U/L (14-36); Blood Urea Nitrogen 4 mg/dl (7-17); Creatinine,Serum 0.60 mg/dl (0.52-1.04); Estimated Glomerular Filt Rate 117 ml/min (>60); GFR (African American) 141 ML/MIN (>60)
[2025-03-22 18:52] LABS: Albumin/Globulin Ratio 1.5 (1.1-1.8); Alkaline Phosphatase 68 U/L (38-126); Anion Gap 13.8 mEq/L (5-15); Bilirubin,Total 1.0 mg/dl (0.2-1.3); Calcium 9.3 mg/dl (8.4-10.2); Carbon Dioxide 22 mmol/L (22.0-30.0); Globulin 2.9 g/dL (1.3-3.2); Glucose 105 mg/dl (74-100); Total Protein,Serum 7.3 g/dl (6.3-8.2)
== END 2025-03-22 23:59 | disposition home or self-care (01) ==
LOC: LAB 18:02
PROVIDERS: PCP Physician Assistant; Visit Provider Nurse Practitioner Obstetrics & Gynecology
DX: N76.0 Acute vaginitis (principal)
CPT/HCPCS: 80053; 84702; 85025

== ENCOUNTER → 2025-03-23 10:41 | Day surgery (SDC) | payer OTHER, SELFPAY | LOC: OR 10:42 | PROVIDERS: PCP Physician Assistant; Visit Provider Nurse Practitioner Obstetrics & Gynecology | DX: L02.91 Cutaneous abscess, unspecified (principal); Z53.8 Procedure and treatment not carried out for other reasons ==

== ENCOUNTER 2025-05-04 09:10 | Outpatient (CLI) | payer OTHER, SELFPAY ==
--- OUTSIDE RECORDS SUMMARY | 2025-03-16 06:00 | XMS_ITS ---
Author Organization [facility] Address [address] [place] [address] Care Team Providers Care Radiographer Technologist Name Role Phone FrederickMonse Unavailable [phone] Jane Vicente Unavailable [phone] REASON FOR VISIT POSSIBLE BARTHALON CYST Encounters Encounter Location Date Provider Diagnosis [facility] [address] [place] [address] 03/16/2025 Jane Vicente Plan Of Treatment No Information Progress Notes * Ruma DE LA CRUZaDOB: 3 (29 yo F)Acc No.[id number]:03/16/2025 Progress Note Patient: Ruma Sheparda Provider: RUIZ MOLINA :1995 A ge:29 Y S ex:Female Date:03/16/2025 Address:[id number] Subjective: * Chief Complaints: * P OSSIBLE BARTHALON CYST * Electronic signature of Preston Vicente APRN on 05/06/2025 at 09:30 AM EDT Sign off status: Pending Visit Status: R /S (Rescheduled) * Provider: RUIZ MOLINA Date: 0 03/16/2025 Generated for Mookie ng/Faxing/eTransmitting on: 1 09:30 AM EDT
[2025-05-04 21:51] LABS: Hepatitis C Ab Qual. W/ RFX NEGATIVE (Negative)
[2025-05-05 15:34] LABS: RPR W/RFX Titers Nonreactive (Nonreactive)
[2025-05-06 05:09] LABS: Hepatitis B Surface Antigen Negative (Negative)
--- OUTSIDE RECORDS SUMMARY | 2025-05-06 09:30 | XMS_ITS | Encounter Summary ---
Author Organization Healthcare Address [address] [id number] Care Team Providers Care Pressure Welder Name Role Phone Cait Bourne Primary Care Provider [phone] Reason for Visit * Reason Onset Date Comments [facility]CN Clinical Concern/Question 03/17/2025 Encounter Details Date Type Department Care Team (Late st Contact Info) Description 03/15/2025 Telephone Obstetrics & Gynecology [address] [place] [address] Guero Farfan MD [address] [place] [address] [facility] Clinical Concern/Question Social History [...] Call: Returning Jahaira's call. Best contact number: [phone] (mobile) Optimal time of day to reach [...] will receive notification of the communication/outcome via [employer]. * Telephone Encounter - Jahaira Matos RN [...] be an std , Best contact number: [phone] (mobile) Optimal time of day to reach caller: ANYTIME Additional comments/information from caller: None Note: Please do not reply to this message. Follow-up communication and further actions as a result of this message need to be communicated with the patient directly, if the patient is not active onMyChart. If the patient is active on MyChart, they will receive notification of the communication/outcome via [employer]. documented in this encounter Plan of Treatment [...] documented as of this encounter Care Teams Pressure Welder Relationship Specialty Start Date End Date Cait Bourne PA [address] [place] [address] PCP - General 03/23/21 documented as of this encounter
--- OUTSIDE RECORDS SUMMARY | 2025-05-06 09:30 | XMS_ITS | Clinical Summary ---
Author Organization Healthcare Address [address] [place] [address] Care Team Providers Care Tug Master Name Role Phone Cait Bourne Primary Care Provider [phone] Allergies Active Allergy Reactions Criticality Noted Date [...] Diagnosed Date Menorrhagia with irregular cycle 08/22/2021 Endometriosis 08/22/2021 Resolved Problems Problem Noted Date Diagnosed Date Resolved Date Pelvic and perineal pain 08/22/2021 Encounters Date Type Department Care Team Description 03/15/2025 Telephone Obstetrics & Gynecology [address] [place] [address] Guero Farfan MD [facility] Clinical [...] [facility]-HIV Screening 1993 [facility]-Hepatitis C Screening 1993 [facility]-Infant/Child/Adol SDOH Screenings 1993 [facility]-IPV Vaccines (2 of [...] 09/26/2024 05/05/2024, 03/29/2024 [facility]-Depression Screening 11/26/2024 11/27/2023 [id number] Vaccine ( - season) 2025 [facility]-Influenza Vaccine [...] Narrative SUNQUEST - 03/31/2011 9:45 AM EDT [facility] MR #: [id number] [facility] CHRISTOPHE KEYLA SergeJoselo [place], [place] [address] 1995 (Age: 15) FW Collect Date: 03/26/2011 00:00 Receipt Date: 03/27/2011 09:40 Page 1 DEPARTMENT OF PATHOLOGY AND LABORATORY MEDICINE CYTOPATHOLOGY REPORT Email: [email or web address] ATTENDING MD/Practitioner: Uri Rangel Jr., Service: [facility] Location: [facility] Reported: 03/31/2011 09:45 Collected: 03/26/2011 00:00 INTERPRETATION A. THIN PREP (CERVICAL/VAGINAL): NEGATIVE FOR INTRAEPITHELIAL LESION OR MALIGNANCY. INFLAMMATORY CHANGE. SATISFACTORY FOR EVALUATION; ENDOCERVICAL/ TRANSFORMATION ZONE COMPONENT PRESENT. Slide scanned and imaged by [facility] [employer] [facility] System with manual review of [...] results is suggested (please call Microbiology at [phone] for results). CLINICAL INFORMATION: Menstrual History: Cyclic [...] FEMALE GENITAL ORGANS F: A; DX IMAGE [id number] SNOMED CODES: A; [id number] M- [id number] In cases where a pathologist has signed out the report, the service has been rendered in part by a resident. The signing pathologist has performed and is responsible for the reported pathologic evaluation. us Historical Provider LAB PATHOLOGY ORDERABLES Fin al Result [employer] from Last 3 Months or Most Recently Relevant to Health Maintenance Insurance [employer] [facility] MEDICAID Care Teams Tug Master Relationship Specialty Start Date End Date Cait Bourne PA [address] [place] [address] PCP - General 03/23/21
--- OUTSIDE RECORDS SUMMARY | 2025-05-06 09:30 | XMS_ITS | Data Portability ---
Author Organization [facility] [employer] [place] - M[place] Address [address] [place] [address] Assessment No assessment recorded. Plan of Treatment Reminders Order Date Submit Date Provider Last Modified By Organization Details Last Modified Time Details Appointments FOLLOW UP 30 2024 03:00P Serge Bourne PA-C Not available Not available Not available Lab unlisted lab - toxassure flex 19, [id number] 2024 025 ARPIN [facility] ([facility], [address] [place] [address], [id number], 10/05/2024 10:08:55 urinalysi s, dipstick [address], [address] [place] [address], [phone], 08/19/2024 12:20:49 culture, urine 2024 025 ARPIN [facility], [address] [place] [address], [id number], 08/21/2024 04:07:47 Referral None recorded. Procedures None recorded. Surgeries None recorded. Imaging None recorded. Medication Orders propranol ol ER 80 mg capsule,2 4 hr,extend ed release 2024 025 [facility], [facility] [address] [facility], [place], [place], [id number], 12/22/2024 13:33:56 buspirone 7.5 mg tablet [address] [place] [address], [address] [place] [address] E Dorothy [place], [id number], 03/29/2025 12:56:56 Adipex-P 37.5 mg tablet [address] [place] [address], [address] [place] [address] E Dorothy Hernandez [place], [id number], 03/29/2025 10:20:11 prednison e 20 mg tablet [address] [place] [address], [address] [place] [address] E Dorothy [place], [id number], 08/19/2024 16:58:38 Pristiq 50 mg tablet,ex tended release [address] [place] [address], [address] [place] [address] E Dorothy Hernandez [place], [id number], 09/02/2024 11:54:23 ondansetr on 8 mg disintegr ating tablet [address] [place] [address], [address] [place] [address] E Dorothy Hernandez [place], [id number], 10/29/2024 13:14:31 Patient TargetsNo targets recorded. Patient Instructions Encounter Date Encounter Id Patient Instructions Last Modified By Organization Details Last Modified Time 06/29/2024 [id number] attention defici t hyperactivity disorder (ADHD) in adults: care instructions [email or web address] Not available 06/29/2024 15:04:02 08/19/2024 [id number] learning about healthy weight [email or web address] Not available 08/19/2024 17:40:58 learning about mood disorders Not available 08/19/2024 17:40:01 costochondritis: care instructions [email or web address] Not available 08/19/2024 12:16:13 attention defici t hyperactivity disorder (ADHD) in adults: care instructions [email or web address] Not available 08/19/2024 17:40:01 obsessive-compul si ve disorder: care instructions [email or web address] Not available 08/19/2024 12:16:13 09/30/2024 [id number] learning about asthma [email or web address] Not available 10/01/2024 12:05:13 attention defici t hyperactivity disorder (ADHD) in adults: care instructions [email or web address] Not available 10/01/2024 12:05:14 10/29/2024 [id number] learning about healthy weight [email or web address] Not available 10/29/2024 13:28:57 attention defici t hyperactivity disorder (ADHD) in adults: care instructions [email or web address] Not available 11/01/2024 13:59:45 12/21/2024 [id number] mental health assessment* JUNIOR Not available 12/21/2024 15:34:00 MHI Packet Adult [email or web address] Not available 12/21/2024 15:00:13 Reason for Referral None Reported. Results Created Date Observation Date Name Description Value Unit Range Abnormal Flag Note LastModifiedBy Organization Detail LastModifiedTime 08/19/1908/21/2024 URINE CULTU RE, ROUTI NE urine culture, routine Final report Not Available [facility] ([facility]) [address] [facility], [place], [address], 08/21/2024 04:07:47 08/19/19 25 08/21/2024 URINE CULTU RE, ROUTI NE result 1 COMMEN T Cultu re shows less than 10,00 0 colon y formi ng units of bacte eileen per sil liter of urine . This colon y count is not gener ally consi dered to be clini meseret signi fican t. Not Available [facility] ([facility]) [address] [facility], [place], [address], 08/21/2024 04:07:47 08/19/19 25 08/19/2024 urina lysis , dipst ick Leukocytes Negati ve Not Available [facility] [address] [facility] [place], [place], [address], 08/19/2024 12:06:38 08/19/19 25 08/19/2024 urina lysis , dipst ick Nitrite negati ve Not Available [address], [place], [address], 08/19/2024 12:06:38 08/19/19 25 08/19/2024 urina lysis , dipst ick Urobilinogen .2 Not Available [address], [place], [address], 08/19/2024 12:06:38 08/19/19 25 08/19/2024 urina lysis , dipst ick Protein Negati ve Not Available [address], [place], [address], 08/19/2024 12:06:38 08/19/19 25 08/19/2024 urina lysis , dipst ick pH 7.0 Not Available [address], [place], [address], 08/19/2024 12:06:38 08/19/19 25 08/19/2024 urina lysis , dipst ick Blood Negati ve Not Available [address], [place], [address], 08/19/2024 12:06:38 08/19/19 25 08/19/2024 urina lysis , dipst ick Specific [place] 1.015 Not Available [address], [place], [address], 08/19/2024 12:06:38 08/19/19 25 08/19/2024 urina lysis , dipst ick Ketone Negati ve Not Available [address], [address], 08/19/2024 12:06:38 08/19/19 25 08/19/2024 urina lysis , dipst ick Bilirubin Negati ve Not Available [address], [place], [address], 08/19/2024 12:06:38 08/19/19 25 08/19/2024 urina lysis , dipst ick Glucose Negati ve Not Available [address], [place], [address], 08/19/2024 12:06:38 08/19/19 25 08/19/2024 urina lysis , dipst ick Appearance Clear Not Available [address], [address], 08/19/2024 12:06:38 08/19/19 25 08/19/2024 urina lysis , dipst ick Color Pale Yellow Not Available [address], [place], [address], 08/19/2024 12:06:38 10/01/19 25 10/05/2024 TOXAS SURE FLEX 19, UR summary report FINAL ===== ===== ===== ===== ===== ===== ===== ===== ===== ===== ===== ===== ===== === Diego smith es, MS, Ur RFX David ol Bioma rkers , [place], Ur RFX ToxAs sure Flex 19, Ur ===== ===== ===== ===== ===== ===== ===== ===== ===== ===== ===== ===== ===== === Speci men Alert Note: Urina ry creat inine is low; abili ty to detec t some drugs may be compr omise d. Inter pret resul ts with cauti on. ===== ===== ===== ===== ===== ===== ===== ===== ===== ===== ===== ===== ===== === Test Resul t Flag Units [place] [address] ng/mg creat Amphe tamin e is avail able as a sched ule II presc ripti on drug. ===== ===== ===== ===== ===== ===== ===== ===== ===== ===== ===== ===== ===== === Test Resul t Flag Units Ref Range Creat inine 16 L mg/dL >=20 ===== ===== ===== ===== ===== ===== ===== ===== ===== ===== ===== ===== ===== === Decla red Medic ation s: Medic ation list was not provi ded. ===== ===== ===== ===== ===== ===== ===== ===== ===== ===== ===== ===== ===== === For clini bridger consu ltati on, pleas e call . ===== ===== ===== ===== ===== ===== ===== ===== ===== ===== ===== ===== ===== === Not Available [facility] ([facility]) [address] [place], [address], 10/05/2024 10:08:54 10/01/19 25 10/05/2024 TOXAS SURE FLEX 19, UR pdf . Not Available [facility] ([facility]) [address] [facility], [place], [address], 10/05/2024 10:08:54 10/01/19 25 10/05/2024 TOXAS SURE FLEX 19, UR creatinine 16 mg/dL below low normal Note: Urina ry creat inine is low; abili ty to detec t some drugs may be compr omise d. Inter pret resul ts with cauti on. REFER ENCE RANGE : Ref Range >=20 Not Available [facility] ([facility]) [address] [facility], [place], [address], 10/05/2024 10:08:54 10/01/19 25 10/05/2024 TOXAS SURE FLEX 19, UR amphetamines ia COMMEN T NG/mL cutoff :300 Furth er testi ng indic ated Not Available [facility] ([facility]) [address] [place], [address], 10/05/2024 10:08:54 10/01/19 25 10/05/2024 TOXAS SURE FLEX 19, UR benzodiazepi lindsay Negati ve Not Available [facility] ([facility]) [address] [place], [address], 10/05/2024 10:08:54 10/01/19 25 10/05/2024 TOXAS SURE FLEX 19, UR diazepam Not Detect ed NG/mg _crea t Not Available [facility] ([facility]) [address] [place], [address], 10/05/2024 10:08:54 10/01/19 25 10/05/2024 TOXAS SURE FLEX 19, UR desmethyldia zepam Not Detect ed NG/mg _crea t Not Available [facility] ([facility]) [address] [facility], [place], [address], 10/05/2024 10:08:54 10/01/1910/05/2024 TOXAS SURE FLEX 19, UR oxazepam Not Detect ed NG/mg _crea t Not Available [facility] ([facility]) [address] [facility], [place], [address], 10/05/2024 10:08:54 10/01/1910/05/2024 TOXAS SURE FLEX 19, UR temazepam Not Detect ed NG/mg _crea t Expec génesis metab olism of benzo diaze pine class drugs : Paren t Drug Detec génesis Metab olite s ----- ----- - ----- ----- ----- ----- Diaze anisha: Desme thyld iazep am, Temaz epam, Oxaze anisha Chlor diaze poxid e: Desme thyld iazep am, Oxaze anisha Clora zepat e: Desme thyld iazep am, Oxaze anisha Halaz epam: Desme thyld iazep am, Oxaze anisha Temaz epam: Oxaze anisha Oxaze anisha: None Not Available [facility] ([facility]) [address] [facility], [place], [address], 10/05/2024 10:08:54 10/01/19 25 10/05/2024 TOXAS SURE FLEX 19, UR alprazolam Not Detect ed NG/mg _crea t Not Available [facility] ([facility]) [address] [facility], [place], [address], 10/05/2024 10:08:54 10/01/1910/05/2024 TOXAS SURE FLEX 19, UR alpha-hydrox yalprazolam Not Detect ed NG/mg _crea t Not Available [facility] ([facility]) [address] [place], [address], 10/05/2024 10:08:54 10/01/1910/05/2024 TOXAS SURE FLEX 19, UR desalkylflur azepam Not Detect ed NG/mg _crea t Not Available [facility] ([facility]) [address] [place], [address], 10/05/2024 10:08:54 10/01/19 25 10/05/2024 TOXAS SURE FLEX 19, UR lorazepam Not Detect ed NG/mg _crea t Not Available [facility] ([facility]) [address] [place], [address], 10/05/2024 10:08:54 10/01/1910/05/2024 TOXAS SURE FLEX 19, UR alpha-hydrox ytriazolam Not Detect ed NG/mg _crea t Not Available [facility] ([facility]) [address] [place], [address], 10/05/2024 10:08:54 10/01/19 25 10/05/2024 TOXAS SURE FLEX 19, UR clonazepam Not Detect ed NG/mg _crea t Not Available [facility] ([facility]) [address] [place], [address], 10/05/2024 10:08:54 10/01/19 25 10/05/2024 TOXAS SURE FLEX 19, UR 7-aminoclona zepam Not Detect ed NG/mg _crea t Not Available [facility] ([facility]) [address] [place], [address], 10/05/2024 10:08:54 10/01/19 25 10/05/2024 TOXAS SURE FLEX 19, UR midazolam Not Detect ed NG/mg _crea t Not Available [facility] ([facility]) [address] [place], [address], 10/05/2024 10:08:54 10/01/19 25 10/05/2024 TOXAS SURE FLEX 19, UR alpha-hydrox ymidazolam Not Detect ed NG/mg _crea t Not Available [facility] ([facility]) [address] [place], [address], 10/05/2024 10:08:54 10/01/19 25 10/05/2024 TOXAS SURE FLEX 19, UR flunitrazepa m Not Detect ed NG/mg _crea t Not Available [facility] ([facility]) [address] [place], [address], 10/05/2024 10:08:54 10/01/19 25 10/05/2024 TOXAS SURE FLEX 19, UR desmethylflu nitrazepam Not Detect ed NG/mg _crea t Not Available [facility] ([facility]) [address] [place], [address], 10/05/2024 10:08:54 10/01/19 25 10/05/2024 TOXAS SURE FLEX 19, UR cocaine metabolite ia Negati ve NG/mL cutoff :150 Not Available [facility] ([facility]) [address] [place], [address], 10/05/2024 10:08:54 10/01/19 25 10/05/2024 TOXAS SURE FLEX 19, UR ethanol biomarkers ia COMMEN T NG/mL cutoff :500 Furth er testi ng indic ated Not Available [facility] ([facility]) [address] [place], [address], 10/05/2024 10:08:54 10/01/19 25 10/05/2024 TOXAS SURE FLEX 19, UR cannabinoids ia Negati ve NG/mL cutoff :20 Not Available [facility] ([facility]) [address] [place], [address], 10/05/2024 10:08:54 10/01/19 25 10/05/2024 TOXAS SURE FLEX 19, UR 6-acetylmorp soham ia Negati ve NG/mL cutoff :10 Not Available [facility] ([facility]) [address] [place], [address], 10/05/2024 10:08:54 10/01/19 25 10/05/2024 TOXAS SURE FLEX 19, UR opiate class ia Negati ve NG/mL cutoff :100 Not Available [facility] ([facility]) [address] [place], [address], 10/05/2024 10:08:54 10/01/19 25 10/05/2024 TOXAS SURE FLEX 19, UR oxycodone class ia Negati ve NG/mL cutoff :100 Not Available [facility] ([facility]) [address] [place], [address], 10/05/2024 10:08:54 10/01/19 25 10/05/2024 TOXAS SURE FLEX 19, UR methadone ia Negati ve NG/mL cutoff :100 Not Available [facility] ([facility]) [address] [place], [address], 10/05/2024 10:08:54 10/01/19 25 10/05/2024 TOXAS SURE FLEX 19, UR methadone mtb ia Negati ve NG/mL cutoff :100 Not Available [facility] ([facility]) [address] [place], [address], 10/05/2024 10:08:54 10/01/19 25 10/05/2024 TOXAS SURE FLEX 19, UR buprenorphin e ia Negati ve NG/mL cutoff :5.0 Not Available [facility] ([facility]) [address] [place], [address], 10/05/2024 10:08:54 10/01/19 25 10/05/2024 TOXAS SURE FLEX 19, UR fentanyl ia Negati ve NG/mL cutoff :2.0 Not Available [facility] ([facility]) [address] [place], [address], 10/05/2024 10:08:54 10/01/19 25 10/05/2024 TOXAS SURE FLEX 19, UR tapentadol ia Negati ve NG/mL cutoff :200 Not Available [facility] ([facility]) [address] [place], [address], 10/05/2024 10:08:54 10/01/19 25 10/05/2024 TOXAS SURE FLEX 19, UR propoxyphene ia Negati ve NG/mL cutoff :300 Not Available [facility] ([facility]) [address] [place], [address], 10/05/2024 10:08:54 10/01/19 25 10/05/2024 TOXAS SURE FLEX 19, UR tramadol ia Negati ve NG/mL cutoff :200 Not Available [facility] ([facility]) [address] [place], [address], 10/05/2024 10:08:54 10/01/19 25 10/05/2024 TOXAS SURE FLEX 19, UR methylphenid ate ia Negati ve NG/mL cutoff :100 Not Available [facility] ([facility]) [address] [place], [address], 10/05/2024 10:08:54 10/01/19 25 10/05/2024 TOXAS SURE FLEX 19, UR barbiturates ia Negati ve NG/mL cutoff :200 Not Available [facility] ([facility]) [address] [place], [address], 10/05/2024 10:08:54 10/01/19 25 10/05/2024 TOXAS SURE FLEX 19, UR phencyclidin e ia Negati ve NG/mL cutoff :25 Not Available [facility] ([facility]) [address] [place], [address], 10/05/2024 10:08:54 10/01/19 25 10/05/2024 TOXAS SURE FLEX 19, UR gabapentin ia Negati ve ug/mL cutoff :1.0 Not Available [facility] ([facility]) [address] [place], [address], 10/05/2024 10:08:54 10/01/19 25 10/05/2024 TOXAS SURE FLEX 19, UR anticonvulsa nts Negati ve Not Available [facility] ([facility]) [address] [place], [address], 10/05/2024 10:08:54 10/01/19 25 10/05/2024 TOXAS SURE FLEX 19, UR pregabalin Not Detect ed Not Available [facility] ([facility]) [address] [place], [address], 10/05/2024 10:08:54 10/01/19 25 10/05/2024 TOXAS SURE FLEX 19, UR carisoprodol ia Negati ve NG/mL cutoff :100 Not Available [facility] ([facility]) [address] [place], [address], 10/05/2024 10:08:54 10/01/1910/05/2024 AMPHE TAMIN ES, MS, UR RFX amphetamines +POSIT JANAK+ Not Available [facility] ([facility]) [address] [place], [address], 10/05/2024 10:08:55 10/01/19 25 10/05/2024 AMPHE TAMIN ES, MS, UR RFX methamphetam ine Not Detect ed NG/mg _crea t Not Available [facility] ([facility]) [address] [place], [address], 10/05/2024 10:08:55 10/01/19 25 10/05/2024 AMPHE TAMIN ES, MS, UR RFX amphetamine 05641 NG/mg _crea t Not Available [facility] ([facility]) [address] [place], [address], 10/05/2024 10:08:55 10/01/1910/05/2024 AMPHE TAMIN ES, MS, UR RFX MDMA (ecstasy) Not Detect ed NG/mg _crea t Not Available [facility] ([facility]) [address] [facility], [place], [address], 10/05/2024 10:08:55 10/01/1910/05/2024 AMPHE TAMIN ES, MS, UR RFX mda (ecstasy metabolite) Not Detect ed NG/mg _crea t Not Available [facility] ([facility]) [address] [place], [address], 10/05/2024 10:08:55 10/01/1910/05/2024 DAVID OL BIOMA RKERS , MS, UR RFX ethanol biomarkers Negati ve Not Available [facility] ([facility]) [address] [place], [address], 10/05/2024 10:08:56 10/01/1910/05/2024 DAVID OL BIOMA RKERS , MS, UR RFX ethyl glucuronide Not Detect ed NG/mg _crea t Not Available [facility] ([facility]) [address] [place], [address], 10/05/2024 10:08:56 10/01/1910/05/2024 DAVID OL BIOMA RKERS , MS, UR RFX ethyl sulfate Not Detect ed NG/mg _crea t Not Available [facility] ([facility]) [address] [place], [address], 10/05/2024 10:08:56 Result Notes None recorded. Problems Name Problem SNOMED Code Status Onset Date Resolution Date Notes Provider Name and Address Organization Details Recorded Time Attention deficit hyperactivi ty disorder, predominant ly inattentive type 66148225 Active 2023 CHARBEL Jonas [address] [place] [address], [address], [employer] 5 17:39:15 Moderate recurrent major depression 58445966 Active 2023 CHARBEL Jonas [address] [place] [address], [address], [employer] 5 12:05:02 Vertigo 203216718 Completed 202309/30/2024 CHARBEL Jonas [address] [place] [address], [address], [employer] 5 12:05:04 Acute sinusitis 58934707 Completed 202309/30/2024 CHARBEL Jonas [address] [place] [address], [address] 8, [employer] 5 12:04:49 Viral gastroenter itis 702495627 Completed 202309/30/2024 CHARBEL Jonas [address] [place] [address], [address] 8, [employer] 5 12:05:12 Costal chondritis 86318466 Completed 202409/30/2024 CHARBEL Jonas [address] [place] [address], [address] 8, [employer] 5 12:04:58 Obsessive-c ompulsive disorder 231162602 Active 2024 CHARBEL Jonas [address] [place] [address], [address], [employer] 5 12:04:52 Generalized anxiety disorder 24788030 Active 2024 CHARBEL Jonas [address] [place] [address], [address] 8, [employer] 5 12:04:54 Impetigo 46556233 Active 2024 CHARBEL Jonas [address] [place] [address], [address], [employer] 12:05:15 Herpes simplex 16292618 Active 2024 Cait Steffen [address], [address], [employer] 5 12:05:23 Asthma 874587264 Active 2024 Cait CHARBEL Bourne [address] [place] [address], [address], [employer] 5 12:08:31 Attention deficit hyperactivi ty disorder, combined type 61059065 Active 2024 Cait Keene [address], [address], [employer] 5 15:00:01 Pediculosis capitis 85398581 Active 2024 Cait Steffen [address], [address], [employer] 5 10:43:28 Problem Notes None recorded. Procedures Surgical History Date Name Laterality Status Provider Name and Address Organization Details Recorded Time Tonsillectomy completed [employer] 05/27/2024 17:24:37 Gallbladder Surgery completed [employer] 05/27/2024 17:24:43 Breast augmentation w/implt completed [employer] 05/27/2024 17:24:52 Laparoscopy completed [employer] [facility] [employer] 05/27/2024 17:25:05 Orthopedic Surgery completed [employer] 05/27/2024 17:25:16 Caesarean Section completed [employer] 05/27/2024 17:25:39 Dilation and Evacuation completed [employer] 05/27/2024 17:25:32 Imaging Results None recorded. Procedure Notes None recorded. Medical Equipment None Reported. Allergies Allergen ID Allergen Name Allergen Category Reaction Reaction Severity Criticality Documentation Date Start Date Code Code System Note Provider Name and Address Organization Details Recorded Time 47135 hydrocodo ne Not available other Not available Not available 04/15/2024 5489 RxNorm Nuria Vice null, [employer] 14:20:40 29644 Reglan medicatio n other Not available Not available 04/15/2024 9230 RxNorm Nuria Vice null, [employer] 14:20:46 73036 Singulair medicatio n other Not available Not available 04/15/2024 02690 9 RxNorm Nuria Vice null, [employer] 14:20:53 Medications Name Sig Start Date Stop Date Status Note LastModified by Organization Details LastModified Time amantadine HCl 100 mg tablet 04/15 completed Not Available Not Available Not Available prednisone 10 mg tablet TAKE 2 TABLETS BY MOUTH TWICE DAILY FOR 5 DAYS 04/15 completed Not Available Not Available Not Available doxycycline hyclate 100 mg capsule 06/29 completed Not Available Not Available Not Available triazolam 0.25 mg tablet TAKE ONE TABLET BY MOUTH in THE evening BEFORE bed AND TAKE ONE TABLET 1 hour BEFORE your appointme nt. 04/15 completed Not Available Not Available Not Available azithromyci n 250 mg tablet TAKE 2 TABLETS BY MOUTH ON DAY 1, THEN TAKE 1 TABLET DAILY ON DAYS 2-5 06/29 completed Not Available Not Available Not Available ibuprofen 800 mg tablet TAKE ONE TABLET BY MOUTH EVERY 8 HOURS NEEDED FOR PAIN MAY CAUSE DROWSINES S 04/11 completed Not Available Not Available Not Available fluconazole 150 mg tablet TAKE ONE TABLET BY MOUTH A ONE-TIME DOSE; MAY REPEAT DOSE AFTER 3 DAYS if symptoms persist 09/30 completed Not Available Not Available Not Available valacyclovi r 1 gram tablet TAKE ONE TABLET BY MOUTH EVERY TWELVE HOURS FOR 10 DAYS -- FINISH ALL MEDICINE -- 10/29 completed Not Available Not Available Not Available senna 8.6 mg tablet 09/29 completed Not Available Not Available Not Available ondansetron HCl 8 mg tablet TAKE ONE TABLET BY MOUTH EVERY 8 HOURS 04/15 completed Not Available Not Available Not Available minocycline 100 mg capsule TAKE ONE CAPSULE BY MOUTH EVERY TWELVE HOURS FOR 10 DAYS -- FINISH ALL MEDICINE -- 10/29 completed Not Available Not Available Not Available promethazin e 12.5 mg tablet 06/29 completed Not Available Not Available Not Available prednisone 20 mg tablet TAKE ONE TABLET BY MOUTH TWICE DAILY DIRECTED FOR 5 DAYS FOR INFECTION 09/29 completed Not Available Not Available Not Available metronidazo le 500 mg tablet TAKE ONE TABLET BY MOUTH TWICE DAILY FOR 7 DAYS --AVOID ANY PRODUCT(S ) CONTAININ G ALCOHOL WHILE TAKING THIS MEDICATIO N-- 05/27 completed Not Available Not Available Not Available phentermine 37.5 mg tablet TAKE ONE TABLET BY MOUTH EVERY DAY 03/29 completed Not Available Not Available Not Available valacyclovi r 500 mg tablet TAKE ONE TABLET BY MOUTH EVERY DAY NEEDED FOR outbreak active Not Available Not Available No t Available sulfamethox azole 800 mg-trimetho prim 160 mg tablet TAKE ONE TABLET BY MOUTH TWICE DAILY FOR 3 DAYS 05/27 completed Not Available Not Available Not Available acetaminoph en 500 mg tablet TAKE ONE TABLET BY MOUTH EVERY 6 HOURS NEEDED FOR FEVER OR pain active Not Available Not Available No t Available ondansetron 8 mg disintegrat ing tablet DISSOLVE ONE TABLET in MOUTH THREE TIMES DAILY NEEDED FOR NAUSEA AND VOMITING active Not Available Not Available No t Available oxycodone-a cetaminophe n 5 mg-325 mg tablet TAKE ONE TABLET BY MOUTH EVERY 6 HOURS NEEDED FOR PAIN MAY CAUSE DROWSINES S active Not Available Not Available No t Available amoxicillin 875 mg tablet TAKE ONE TABLET BY MOUTH TWICE DAILY FOR 10 DAYS -- FINISH ALL MEDICINE -- 04/15 completed Not Available Not Available Not Available dextroamphe tamine-amph etamine ER 20 mg 24hr capsule,ext end release TAKE ONE CAPSULE BY MOUTH EVERY DAY 2024 active Not Available Not Available Not Avai lable cephalexin 500 mg capsule TAKE 1 CAPSULE BY MOUTH TWICE DAILY FOR 7 DAYS 04/15 completed Not Available Not Available Not Available propranolol ER 80 mg capsule,24 hr,extended release TAKE ONE CAPSULE BY MOUTH EVERY DAY active Not Available Not Available No t Available buspirone 7.5 mg tablet TAKE ONE TABLET BY MOUTH TWICE DAILY 2024 active Not Available Not Available Not Avai lable Adderall XR 10 mg capsule,ext ended release TAKE ONE CAPSULE BY MOUTH EVERY DAY 04/15 completed Not Available Not Available Not Available mupirocin 2 % topical ointment apply a SMALL AMOUNT TO THE affected AREA TOPICALLY THREE TIMES DAILY active Not Available Not Available No t Available mirtazapine 15 mg tablet TAKE ONE TABLET BY MOUTH EVERY DAY AT BEDTIME 09/29 completed Not Available Not Available Not Available bromphenira mine-pseudo ephedrine-D M 2 mg-30 mg-10 mg/5 mL oral syrup TAKE 5ML BY MOUTH EVERY 6 HOURS NEEDED FOR COLD SYMPTOMS 04/15 completed Not Available Not Available Not Available sertraline 50 mg tablet 09/02 completed Not Available Not Available Not Available Ventolin HFA 90 mcg/actuati on aerosol inhaler INHALE 1 PUFF BY MOUTH FOUR TIMES DAILY NEEDED FOR SHORTNESS OF BREATH OR wheezing active Not Available Not Available No t Available oxycodone 5 mg tablet 06/29 completed Not Available Not Available Not Available azithromyci n 500 mg tablet TAKE 2 TABLETS BY MOUTH ONCE 05/27 completed Not Available Not Available Not Available atomoxetine 40 mg capsule TAKE ONE CAPSULE BY MOUTH EVERY DAY 04/15 completed Not Available Not Available Not Available minocycline 100 mg tablet Take 1 tablet every 12 hours by oral route for 10 days. 10/29 completed Not Available Not Available Not Available bupropion HCl XL 150 mg 24 hr tablet, extended release TAKE ONE TABLET BY MOUTH EVERY DAY 09/29 completed Not Available Not Available Not Available nitrofurant oin monohydrate /macrocryst als 100 mg capsule TAKE ONE CAPSULE BY MOUTH TWICE DAILY FOR 7 DAYS --TAKE WITH FOOD-- 05/27 completed Not Available Not Available Not Available ferrous sulfate 06/29 completed Not Available Not Available Not Available albuterol sulfate 09/30 completed Not Available Not Available Not Available FeroSul 325 mg (65 mg iron) tablet TAKE ONE TABLET BY MOUTH EVERY DAY active Not Available Not Available No t Available Vyvanse 20 mg capsule TAKE ONE CAPSULE BY MOUTH EVERY DAY 04/15 completed Not Available Not Available Not Available desvenlafax ine succinate ER 50 mg tablet,exte nded release 24 hr TAKE ONE TABLET BY MOUTH EVERY DAY 09/02 completed Not Available Not Available Not Available cetirizine 10 mg capsule Take by oral route. active Not Available Not Available No t Available Natroba 0.9 % topical suspension APPLY 30 TO 120 ML TO DRY HAIR; RINSE AFTER 10 MINUTES; MAY REPEAT IN 1 WEEK active Not Available Not Available No t Available Slow Release Iron 142 mg (45 mg iron) tablet,exte nded release TAKE ONE TABLET BY MOUTH EVERY DAY 04/15 completed Not Available Not Available Not Available desvenlafax ine succinate ER 25 mg tablet,exte nded release 24 hr TAKE ONE TABLET BY MOUTH EVERY DAY AT BEDTIME FOR DEPRESSIO N 05/27 completed Not Available Not Available Not Available levonorgest rel 0.1 mg-ethinyl estradiol 20 mcg chewable tablet Chew 1 tablet every day by oral route. 05/27 completed Not Available Not Available Not Available Vitals Date Recorded Body height Body mass index (BMI) Body weight Oxygen saturation Oxygen saturation in Arterial blood by Pulse oximetry Heart rate Body temperature Systolic And Diastolic Provider Name and Address Organization Details Last Updated DateTime 5 160.02 cm 28.2 kg/m2 42981.6 2 g 98 % 98 % 72 /min 98.3 [degF] 126/82 mm[Hg] [employer] 5 11:44:23 Date Recorded Body height Body mass index (BMI) Body weight Oxygen saturation Oxygen saturation in Arterial blood by Pulse oximetry Heart rate Body temperature Systolic And Diastolic Provider Name and Address Organization Details Last Updated DateTime 5 160.02 cm 28.6 kg/m2 25710.8 1 g 99 % 99 % 82 /min 97.9 [degF] 126/80 mm[Hg] [employer] 5 11:44:13 Date Recorded Body height Body mass index (BMI) Body weight Oxygen saturation Oxygen saturation in Arterial blood by Pulse oximetry Heart rate Body temperature Systolic And Diastolic Provider Name and Address Organization Details Last Updated DateTime 5 160.02 cm 28.7 kg/m2 90177.6 8 g 98 % 98 % 90 /min 98.2 [degF] 118/76 mm[Hg] [employer] 5 13:09:37 Date Recorded Body height Body mass index (BMI) Body weight Oxygen saturation Oxygen saturation in Arterial blood by Pulse oximetry Heart rate Body temperature Systolic And Diastolic Provider Name and Address Organization Details Last Updated DateTime 5 160.02 cm 28.4 kg/m2 46046.9 3 g 98 % 98 % 90 /min 98.2 [degF] 120/84 mm[Hg] [employer] 5 11:06:09 Date Recorded Body height Provider Name an d Address Organization Details Last Updated DateTime 04/11/2025 160.02 cm N[facility] [employer] [facility] [employer] 04/11/2025 08:36:55 Date Recorded Body height Body mass index (BMI) Body weight Oxygen saturation Oxygen saturation in Arterial blood by Pulse oximetry Heart rate Systolic And Diastolic Provider Name and Address Organization Details Last Updated DateTime 4 160.02 cm 27.4 kg/m2 53296.3 8 g 97 % 97 % 82 /min 119/75 mm[Hg] [employer] 4 13:19:16 Social History Question Answer Notes LastModified by [employer] Details LastModified Time Tobacco Smoking Status Current Every Day Smoker [employer] [employer] 04/15/2024 14:19:51 Do You Have An Advance Directive? No Information not available 04/15/2024 Is Your Home Air Conditioned? Yes Information not available 04/15/2024 Are You Blind Or Do You Have Difficulty Seeing? No Information not available 04/15/2024 What Is Your Level Of Caffeine Consumption? Moderate Information not available 04/15/2024 What Type Of Cellophane Tester Do You Use? [employer] Information not available 04/15/2024 In The 14 Days Before Symptom Onset, Have You Had Close Contact With A Laboratory-confi rmed COVID-19 While That Case Was Ill? No Information not available 04/15/2024 In The 14 Days Before Symptom Onset, Have You Had Close Contact With A Person Who Is Under Investigation For COVID-19 While That Person Was Ill? No Information not available 04/15/2024 Have You Been To An Area Known To Be High Risk For COVID-19? No Information not available 04/15/2024 Are You Deaf Or Do You Have Serious Difficulty Hearing? No Information not available 04/15/2024 What Type Of Diet Are You Following? REGULAR Information not available 04/15/2024 What Is The Highest Grade Or Level Of School You Have Completed Or The Highest Degree You Have Received? [id number] Information not available 05/27/2024 Who Is Your Employer? [employer] Information not available 04/15/2024 How Many Days Of Moderate To Strenuous Exercise, Like A Brisk Walk, Did You Do In The Last 7 Days? 0 Information not available 04/15/2024 Have There Been Any Changes To Your Family Or Social Situation? No Information not available 04/15/2024 Are There Any Guns Present In Your Home? No Information not available 05/27/2024 Which Of Your Hands Is Dominant? Right Information not available 04/15/2024 What Is Your Home Situation? Other Information not available 04/15/2024 Do You Have A Medical Power Of Artist Color Separation? No Information not available 04/15/2024 What Was The Date Of Your Most Recent Tobacco Screening? 04/11/2025 Information not available 04/11/2025 Do You Have Any Pets? No Information not available 04/15/2024 Do You Use Protection During Sex? Usually Information not available 04/15/2024 What Is Your Relationship Status? Single Information not available 04/15/2024 Have You Repeated Any Grades? No Information not available 04/15/2024 Do You Use Your Seat Belt Or Car Seat Routinely? Yes Information not available 04/15/2024 Are You Sexually Active? Yes Information not available 04/15/2024 Do You Have Smoke And Carbon Monoxide Detectors In Your Home? Yes Information not available 04/15/2024 At What Age Did You Start Smoking Tobacco? 15 Information not available 04/15/2024 Are You Passively Exposed To Smoke? No Information not available 04/15/2024 Are There Any Smokers In Your House? No Information not available 04/15/2024 How Much Tobacco Do You Smoke? 0.5 PPD Information not available 04/15/2024 Do You Participate In Social Media? Yes Information not available 05/27/2024 Do You Use Sunscreen Routinely? No Information not available 04/15/2024 Has Tobacco Cessation Counseling Been Provided? Yes Information not available 04/15/2024 On What Date Was Tobacco Cessation Counseling Provided? 04/11/2025 Information not available 04/11/2025 How Many Years Have You Smoked Tobacco? 13 Information not available 04/15/2024 Have You Recently Traveled Abroad? No Information not available 04/15/2024 Do You Have Difficulty Walking Or Climbing Stairs? No Information not available 04/15/2024 Are You Currently In School? No Information not available 05/27/2024 What Contraceptive Method Was Reported At Start Of This Visit? None Information not available 10/29/2024 Do You Have Any Dietary Restrictions? No Information not available 05/27/2024 Sex: Female Functional Status Question Answer Note LastModified by [employer] Details LastModified Time Do you use any illicit or recreational drugs? No Information not available 04/15/2024 Do you or have you ever used any other forms of tobacco or nicotine? No Information not available 04/15/2024 What is your level of alcohol consumption? Occasional Information not available 04/15/2024 Are you currently employed? Yes Information not available 04/15/2024 Do you have transportation difficulties? No Information not available 05/27/2024 Are you able to walk independently without assistance or assistive devices? [employer] Information not available 04/15/2024 Do you have difficulty doing errands alone? No Information not available 04/15/2024 Are you able to care for yourself independently? Yes Information not available 04/15/2024 Do you have difficulty dressing, bathing, grooming, or toileting? No Information not available 04/15/2024 What is your exercise level? Occasional Information not available 04/15/2024 Mental Status Question Answer Note LastModified by Organizat ion Details LastModified Time Do you feel stressed (tense, restless, nervous, or anxious, or unable to sleep at night)? [id number] Information not available 05/27/2024 Do you have difficulty concentrating, remembering or making decisions? No Information no t available 04/15/2024 Family History Relationship Description Onset Age of this Age Resolved Age Notes LastModified by Organization Details LastModified Time Maternal Grandmother Hypertensive disorder Not available 2023 14:28:07 Paternal Grandfather Malignant neoplasm of lung Not available 2023 14:28:26 Paternal Grandmother Family history of stroke API-27 Not available 2024 11:35:02 Medical History Condition Response Coronary Artery Disease N Other N Gout N Kidney Stones N Blood Diseases N Hyperthyroidism N Blood Transfusion N Breast Cancer N Emergency room visit since last appointm ent. N COPD N Depression Y Dermatologic Disorders N Lung Disease N Hypothyroidism N Developmental or Behavioral Disorders N Defects or Inherited Disease N Breast Problem N Difficulty Swallowing N Anesthesia Complications N History of STI N Anxiety Disorder Y Meniere's disease N Autoimmune disease N Muscle, Joint, or Bone Problems N Vision or Eye Problems N Arthritis N Infertility N Polyps N Mental Disorder N Congenital Anomalies N Acid Reflux (GERD) N Cancer N Stroke N Neurologic/Epilepsy N Endometriosis Y Bladder or Kidney Problems N High Cholesterol N Liver Disease N Psychiatric/Mental Health Condition N Organ Transplant N Fibromyalgia N Headaches Y Schizophrenia N Dialysis N Kidney Disease N Allergies/Hayfever N Heart Problems N Ear or Hearing Problems N Hospitalizations N Learning Disorder N Artificial Joints N Thyroid Problems N GI Problems N Acne N ADD/ADHD Y Eating Disorder N Anemia N Constipation N Mental Illness N Ovarian Cancer N Diabetes N Bedwetting N Hepatitis/Liver Disease N Tuberculosis N Eczema N Diverticulitis N Abuse/Domestic Violence N Asthma Y Trauma/Violence N Substance Abuse N Reflux/GERD N Depression/ depression N Hepatitis N Heart Disease N Pulmonary Embolism N Tourette Syndrome N Chronic Ear Infections N Pre-Eclampsia N Hypertension N Chicken Pox N Autism Spectrum Disorder (ASD) N Osteoporosis N Thrombophilias N Gynecological History Statement/Question Response Flow Heavy Date of LMP 11/30/2024 Duration of Flow (days) 5 Current Control Method None Most Recent Mammogram Age at First Child 19 Frequency of Cycle (Q days) 28 Sexually Active? Y Menses Monthly Y Date of Last Pap Smear LMP Definite Obstetrics History GPAL:G 4 P 3 0 1 3 Type Value Multiple Births 0 Full Term 3 Induced 0 Spontaneous 1 Premature 0 Living 3 Ectopics 0 Total 4 Immunizations Vaccine Type Date Status Note Provider Nam e and Address Organization Details Recorded Time MMR 07/28/1997 completed Nuria Vice null, [employer] 06/29/2024 13:20:06 Tdap 09/28/2013 completed Nuria Vice null, [employer] 06/29/2024 13:20:06 OPV, trivalent 07/28/1997 completed Nuria Vice null, [employer] 06/29/2024 13:20:06 Td (adult) 10/16/2018 completed Nuria Vice null, [employer] 06/29/2024 13:20:06 Hep B, adult 03/29/2024 completed Nuria Vice null, [employer] 06/29/2024 13:20:06 Hep B, adult 05/05/2024 completed Nuria Vice null, [employer] 06/29/2024 13:20:06 DTaP, unspecified formulation 07/28/1997 completed Nuria Vice null, [employer] 06/29/2024 13:20:06 Influenza, split virus, quadrivalent, PF 05/05/2024 completed Nuria Vice null, [employer] 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 Dr Drummond to refill Adderall until she can see psychUDS todayCSA signed todayKaspe r #[id number] reviewed today Moderate r ecurrent major depression 77382711 F33.1 trial Pristiq Vertigo 679087057 R42 Being treated for UTI but will check labs as well Long-term current use of drug therapy 724546902 Z79.937 [id number] CHARBEL Jonas [address] [address] 05/27/2024 17:11:53 05/28/2024 08:41:05 Attention deficit hyperactivity disorder, predominantly inattentive type 90182485 F90.0 Acute sinusitis 46085841 J01.90 [id number] CHARBEL Jonas [address] [address] 06/29/2024 13:04:48 06/29/2024 14:39:06 Viral gastroenteritis 288759969 A08.4 Attention deficit hyperactivity disorder, predominantly inattentive type 21626430 F90.[address] Drummond [id number] Cait Bourne [address] [address] 08/19/2024 11:29:11 08/19/2024 12:14:17 Dysuria 01361842 R30.0 Costal chondritis 968039 04 M94.0 Obsessive- compulsive disorder 276742177 F42.9 Sent Pristiq, but then patient recalled she had tried that in the past and did not like itWill try Remeron to help with anxiety/sl eep and try to obtain copy of Genesight test she had done in the past Depressive disorder 3548 9007 F33.1 Attention deficit hyperactivity disorder, predominantly inattentive type 10510868 F90.0 Body mass index 25-29 - overweight 267024278 Z68.28 [id number] CHARBEL Jonas [address] [address] 09/30/2024 11:33:07 09/30/2024 13:42:05 Long-term drug therapy 613458961 Z79.899 Attention deficit hyperactivity disorder, predominantly inattentive type 39838254 F90.[address] Drummond Impetikevin 48494624 L01.00 Herpes simplex 06345622 B00.9 Asthma 815789696 J45.90 9 [id number] CHARBEL Jonas [facility] [address] [place] [address] 10/29/2024 13:00:16 10/29/2024 14:17:23 Body mass index 25-29 - overweight 109786342 Z68.28 Generalize d anxiety disorder 39367318 F41.1 Attention deficit hyperactivity disorder, predominantly inattentive type 08575038 F90.0 Stop Adderall [id number] CHARBEL Jonas [facility] [address] [facility] [place] [address] 12/21/2024 10:54:04 12/21/2024 11:32:19 Attention deficit hyperactivity disorder, combined type 37655389 F90.2 13003623 MHI packet given to patient to complete then refer to for med mgmt Counseling 334685094 Z71 .9 Health Concerns Section Related Observation LastModified by Organization Detai ls LastModified Time None Recorded Concern Status LastModified by Organization Details LastModified Time None Recorded Advance Directives Directive N: Payers Insurance Date Sequence Insurance Name Policy Number Policy Patiño Covered Member ID Patiño Member ID Guarantor Name 04/08/2025 1 [facility] (MEDICAID HMO) Keyla De La Cruz [id number] Keyla De La Cruz Notes Date Note Type Note Provider Name and Address Organization Details Recorded Time 06/29/2024 text/html Patient presents for followup. History of ADHD. States that she is doing well. STates medication is effective and denies side effects.Requests zofran. Recently started iron and it makes her sick. CHARBEL Jonas [address] [place] [address], [phone], [facility] [employer] [employer] 06/29/2024 15:05:25 08/19/2024 text/html ROS as noted in the HPI Patient presents for ADHD.Has pain in her sternum at times. Has been coughing for a few weeks.Adderall helps with ADHD focus and attention but states that she still has obsessive-compuls janak thoughts. She states she lays awake until 3 or 5 am because her brain won't shut down. Most recently, she could not go to sleep until she used a lint roller on all the clothes she had washed before folding and putting them away. CHARBEL Jonas [address] [place], [address], [employer] 08/19/2024 17:41:09 09/30/2024 text/html ROS as noted in the [facility] Patient presents for followup.History of ADHD. Doing well on current meds. Adderall is effective. Denies side effects.Has a crusty lesion on her chin after getting scratched.Also has a painful blistery lesion on her left buttock that has come and gone in the same place a few times.Needs refills on her inhaler. CHARBEL Jonas [address] [place], [address], [employer] 10/01/2024 12:06:08 10/29/2024 text/html ROS as noted in the [facility] Patient presents for followup. Would like to restart Adipex. Advised she can't take that with Adderall. States that Adderall doesn't really seem to be helping a lot and makes her irritable and agitated. Reqeuests something for her nerves. States when she has to go out in public she is an anxious, nervous mess. Gets sweaty, clammy, her heart races, etc. CHARBEL Jonas [address] [place], [address], [employer] 11/01/2024 14:00:41 12/21/2024 text/html ROS as noted in the [facility] Patient presents for followup. Would like to restart meds for ADHD. STopped taking them because she wanted to try Adipex for weight loss. States it didn't seem to help and she is really struggling with focus and attention. CHARBEL Jonas [address] [place], [address], [employer]. 12/23/2024 13:28:38 OBGyn Episode No OBEpisode recorded.
--- OUTSIDE RECORDS SUMMARY | 2025-05-06 09:31 | XMS_ITS | Patient Health Record ---
Author Organization [facility] Address [address] [place] [address] Care Team Providers Care Service Center Technician Name Role Phone Monse Mack Unavailable [phone] Jane Vicente Unavailable [phone] Reason For Referral No Information Social History Social History Sexual History: Social Info Question Answer Notes Sexual History Had sex in the past 12 months (vaginal, oral, or anal)? Yes Drugs/Alcohol: Social Info Question Answer Notes Drugs Have you used drugs other than those for medical reasons in the past 12 months? No Alcohol Screen Did you have a drink containing alcohol in the past year? Yes Points 0 Interpretation Negative Tobacco Use: Social Info Question Answer Notes Tobacco Use/Smoking Are you a former smoker Tobacco use other than smoking: Are you an other tobac co user? No Plan Of Treatment No Information
== END 2025-05-04 23:59 ==
LOC: LAB.DROPOF 05-06 09:10
PROVIDERS: PCP Physician Assistant; Visit Provider Student in an Organized Health Care Education/Training Program
DX: N39.0 Urinary tract infection, site not specified (principal); Z72.51 High risk heterosexual behavior
CPT/HCPCS: 86592; 86803; 87086; 87491; 87529; 87563; 87591; 87661